=== PATIENT | male | born 1955 | race Caucasian/White ===

== ENCOUNTER → 2020-02-13 08:10 | Outpatient (REF) | payer MEDICARE, SELFPAY ==
--- NOTE | 2020-02-13 08:14 | CA_ITS ---
Transthoracic Echocardiogram Patient (Last, First, Middle): David Henley, Gender: Male Date of : 1955 Age: 65 Procedure Date: 02/13/2020 Procedure Type: Transthoracic Echocardiogram Location: OP Height: 180.34 cm Weight: 66.22 kg BSA: 1.84 m2 Heart Rate: bpm BP: 140 / 83 mmHg [employer] Consultant: PHILLIP Referring MD: Lani Sutton MD Symptoms: essential hypertension, family history of CAD Study Quality: Good ECG Rhythm: Sinus Conclusions: - The left ventricular systolic function is normal. The visually estimated ejection fraction is between 55-60%. - There is mild aortic valve regurgitation. - Top normal size of sinus of Valsalva at 3.9 cm. Findings Left Ventricle Normal left ventricular cavity size. There is normal left ventricular wall thickness. The left ventricular systolic function is normal. The visually estimated ejection fraction is between 55-60%. There is no evidence of regional wall motion abnormalities. Diastolic function is normal for age. Right Ventricle Normal right ventricular cavity size and systolic function. Atria Both atria are normal in size. Aortic Valve There is a normal trileaflet aortic valve. There is no aortic valve stenosis. There is mild aortic valve regurgitation. Mitral Valve The mitral valve appears normal. There is trace mitral valve regurgitation. There is no mitral valve stenosis. Pulmonic Valve The pulmonic valve was not well visualized. Tricuspid Valve Normal tricuspid valve structure. There is mild tricuspid valve regurgitation. The pulmonary artery systolic pressure is normal. Great Vessels Top normal size of sinus of Valsalva at 3.9 cm. Ascending aorta measures 3.5cm. Venous The inferior vena cava is normal in size and collapses greater than 50% with inspiration. Pericardium/Pleural There is no evidence of pericardial effusion. Prior Study Comparison No prior study available for comparison. Measurements 2D Linear Measurements IVSd: 1.16 0.6-0.9/0.6-1.0 cm LVIDd: 4.58 3.9-5.3/4.2-5.9 cm LVIDs: 3.02 2.0-3.6 cm LVPWd: 1.01 0.7-1.1 cm Ao Root: 3.94 2.1-3.5 cm LV Mass: 219.39 67-162/88-224 g LVOT Diam: 2.31 3.0+(-)1.3 cm Mitral Valve MV Pk E: 0.46 MV PK A: 0.48 MV Decel Time: 219.02 E/A: 0.96 E'Lateral: 0.10 E'Medial: 0.08 E/E' Med: 5.18 Decel [place]: 2.09 Aortic Valve AoV Pk Jose Roberto: 1.49 AoV Pk Grad: 8.84 AI Pk Jose Roberto: 3.87 AI [place]: 1.43 LVOT LVOT Pk Jose Roberto: 0.92 LVOT Mn Jose Roberto: 0.56 LVOT VTI: 0.21 LVOT Pk Grad: 3.36 LVOT Mn Grad: 1.51 LVOT Diam: 2.31 LVOT Area: 4.18 Diastolic Function MV Pk E: 0.46 MV Pk A: 0.48 E/A: 0.96 E'Medial: 0.08 E/E' Med: 5.18 E' Laterial: 0.10 Tricuspid Valve TR Pk Jose Roberto: 2.61 TR Pk Grad: 27.20 RA Press: 3.00 RVSP: 30.00 Great Vessels Aorta Ao Root-2D: 3.94 2.0-3.7 cm Ao Asc: 3.49 2.1-3.4 cm Updated in Other Vendor System with Status of Final Michael Lincoln MD electronically signed on 02/14/2020 9:57:21 AM with status of Final
--- NOTE | 2020-02-13 08:15 | CA_ITS ---
Acquisition Time: 2020-02-13 09:17:45 Total Exercise Time: 00:07:39 Test Indications: Screening for CAD Medications: AMLODIPINE LISINOPRIL OMEPRAZOLE PRAVASTATIN Protocol: JOSIAH Max HR: 151 BPM 98% of Pred: 153 BPM Max BP: 196/074 mmHG Max Work Load: 9.5 METS Exercise stress test using Josiah protocol. Total of 7 min 39 sec, METs 9.6. Pt tolerated well, denies any anginal sx. EKG with occ. PVC's and a couplet at 4 min 16 ses into exercise. Mild upsloping ST depressions inferiorly and anteriorly suggestive of ischemic changes, however without the sx and they normalize in recovery. Hypertensive response to exercise. Test reviewed with Dr. Lepe. will call PCP to recommend stress nuclear. Referred By: Lani Sutton Overread By: Salas Damon
== END ==
LOC: HO.CARD 08:10
PROVIDERS: PCP Internal Medicine; Visit Provider Internal Medicine
DX: I10 Essential (primary) hypertension (principal); Z82.49 Family history of ischemic heart disease and other diseases of the circulatory system
CPT/HCPCS: 93017; 93306

== ENCOUNTER → 2020-02-24 07:49 | Outpatient (REF) | payer MEDICARE, SELFPAY ==
--- NOTE | 2020-02-24 | NM_ITS ---
EXERCISE MYOCARDIAL PERFUSION STUDY INDICATION: Abnormal stress test, hypertension, hyperlipidemia, assess for coronary disease and ischemia TECHNIQUE: The patient was brought in for an exercise perfusion study on 02/24/2020. Patient performed exercise as per Piero protocol and was injected 25 mCi of sestamibi once target heart rate was achieved. Images were obtained using the SPECT gamma camera interlaced with the gating device. Images were obtained in supine position. Resting perfusion study was performed on 02/25/2020. Patient was administered 25 mCi of sestamibi intravenously at rest. Images were then obtained in supine position. Total DLP 80mGy-cm. Images were processed with the software and compared side to side in short axis, horizontal long axis and vertical long axis views. FINDINGS: Raw images were reviewed. The stress perfusion study showed mildly diminished tracer uptake in the basal inferior wall. With CT attenuation correction this improves, suggestive of diaphragmatic attenuation artifact. The gated study shows low normal LV systolic function with calculated LVEF of 52%. LV cavity is normal in size. The gated study shows normal wall thickening and contraction of segments. Resting study shows no significant perfusion abnormality. Gating at rest reveals normal wall motion with ejection fraction at 48%. The findings are consistent with no reversible or fixed perfusion defects. NM/NM jun perf SPECT rest & str IMPRESSION: 1. Myocardial perfusion imaging study shows likely normal myocardial perfusion. No evidence of any ischemia or infarction. 2. Gated LVEF is 52% during stress and 48% during rest, but visually in the normal range. 3. Transient ischemic dilatation not present. EKG component of the test reported separately.
--- NOTE | 2020-02-24 07:54 | CA_ITS ---
Acquisition Time: 2020-02-24 09:34:11 Total Exercise Time: 00:07:11 Test Indications: Abnormal Treadmill Test Medications: AMLODIPINE LISINOPRIL OMEPRAZOLE PRAVASTATIN Protocol: JOSIAH Max HR: 153 BPM 100% of Pred: 153 BPM Max BP: 166/076 mmHG Max Work Load: 8.8 METS Exercise nuclear using Josiah protocol, total of 7 min 11 sec, METS 8.8. Pt tolerated well, denies any anginal sx. EKG without arrhythmias Mild ST depressions seen in aVF, V3, V4. Nuclear images to follow. Normotensive response to exercise. Test reviewed with Dr. Lincoln. Pt had previously abnormal exercise stress test with mild upsloping ST depressions without anginal sx. Strong family history of cardiac disease (Father had CAD with AR in his 50's with tripple bypass then 10 years later had another AR with CABG x 4) Referred By: Lani Sutton Overread By: Salas Damon
== END ==
LOC: HO.CARD 07:49
PROVIDERS: PCP Internal Medicine; Visit Provider Internal Medicine
DX: R94.39 Abnormal result of other cardiovascular function study (principal)
CPT/HCPCS: 78452; 93017; A9500

== ENCOUNTER → 2020-03-24 10:30 | Outpatient (BNVA) | payer MEDICARE, SELFPAY | PROVIDERS: PCP Internal Medicine; Visit Provider Internal Medicine Cardiovascular Disease | DX: R94.39 Abnormal result of other cardiovascular function study (principal); R10.13 Epigastric pain; I10 Essential (primary) hypertension; E78.9 Disorder of lipoprotein metabolism, unspecified | CPT/HCPCS: 93005; 99202 ==

== ENCOUNTER 2020-05-14 08:31 | Outpatient (REF) | payer MEDICARE, SELFPAY ==
[2020-05-14 11:21] LABS: MANUAL DIFF FLAG NO
[2020-05-14 11:50] LABS: Basophils Absolute Auto 0.1 X10*3/uL (0.0-0.2); Basophils Percent Auto 1.1 % (0-2); Eosinophils Absolute Auto 0.4 X10*3/uL (0.0-0.4); Eosinophils Percent Auto 4.7 % (0-4); Hematocrit 40.5 % (42-52); Hemoglobin 13.2 g/dl (14.0-18.0); Imm Gran Abs Auto 0.04 X10*3/uL (0.00-0.03); Imm Gran Pct Auto 0.5 % (0.0-0.4); Lymphocytes Absolute Auto 1.7 X10*3/uL (1.2-4.9); Lymphocytes Percent Auto 19.8 % (20-40); Mean Corpuscular HGB Conc 32.6 g/dl (31.0-36.0); Mean Corpuscular Hemoglobin 29.3 pg (27.0-33.0); Mean Corpuscular Volume 89.8 fL (80-98); Mean Platelet Volume 11.4 fL (9.4-12.4); Monocytes Absolute Auto 0.6 X10*3/uL (0.1-1.2); Monocytes Percent Auto 7.1 % (2-11); Neutrophils Absolute Auto 5.7 X10*3/uL (2.0-8.3); Neutrophils Percent Auto 66.8 % (45-73); Platelet Count 237 X10*3/uL (160-400); Red Blood Count 4.51 X10*6/uL (4.60-5.80); Red Cell Distribution Width 13.6 % (11.0-16.0); White Blood Count 8.5 X10*3/uL (4.8-10.8)
[2020-05-14 12:12] LABS: Alanine Aminotransferase 19 U/L (0-40); Albumin Level 4.5 g/dL (3.5-5.0); Alkaline Phosphatase 62 U/L (39-117); Anion Gap 16 (12-20); Aspartate Amino Transferase 18 U/L (5-37); Bilirubin Direct 0.4 mg/dL (0.0-0.5); Bilirubin Total 1.1 mg/dL (0.0-1.0); Blood Urea Nitrogen 14 mg/dL (9-16); Calcium 9.3 mg/dL (8.4-10.2); Carbon Dioxide 23 mmol/L (22-29); Chloride 107 mmol/L (96-108); Estimated Glomerular Filt Rate > 60; Glucose Random 101 mg/dL (60-115); Potassium 3.8 mmol/l (3.3-5.1); Sodium 142 mmol/L (135-145)
[2020-05-15 11:03] LABS: LDL Cholesterol Direct 84 mg/dL (<100)
== END 2020-05-14 08:32 | disposition home or self-care (01) ==
LOC: HO.HMGCLDS 08:31
PROVIDERS: PCP Internal Medicine; Visit Provider Internal Medicine
DX: E78.9 Disorder of lipoprotein metabolism, unspecified (principal); I10 Essential (primary) hypertension; R10.13 Epigastric pain
CPT/HCPCS: 36415; 80048; 80076; 83721; 85025

== ENCOUNTER 2020-05-28 15:04 | Outpatient (REF) | payer MEDICARE, SELFPAY ==
--- NOTE | ~2020-05-28 | XR_ITS ---
EXAMINATION: XR CHEST CLINICAL INFORMATION: Localized swelling, mass or lump COMPARISON: None TECHNIQUE: 2 views of the chest were obtained. FINDINGS: The cardiac and mediastinal contours are normal. There is biapical pleural thickening. The lungs are otherwise clear. There is no pleural effusion or pneumothorax. There are degenerative changes of the spine. XR/XR chest 2V IMPRESSION: No evidence for acute disease in the chest.
== END 2020-05-28 15:05 | disposition home or self-care (01) ==
LOC: HO.HMGCX 15:04
PROVIDERS: PCP Internal Medicine; Visit Provider Nurse Practitioner Family
DX: R22.2 Localized swelling, mass and lump, trunk (principal)
CPT/HCPCS: 71046

== ENCOUNTER 2020-06-08 13:49 | Outpatient (REF) | payer MEDICARE, SELFPAY ==
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
[2020-06-08] MEDS: iohexoL 350 MG/ML 100 ML INFUS..BTL IV (15:07)
== END 2020-06-08 13:50 | disposition home or self-care (01) ==
LOC: HO.CT 13:49
PROVIDERS: PCP Internal Medicine; Visit Provider Internal Medicine
DX: R22.2 Localized swelling, mass and lump, trunk (principal)
CPT/HCPCS: 71260; Q9967

== ENCOUNTER → 2020-06-23 09:29 | Outpatient (BNVA) | payer MEDICARE, SELFPAY | PROVIDERS: PCP Internal Medicine; Visit Provider Internal Medicine Pulmonary Disease | DX: J43.8 Other emphysema (principal); Z87.891 Personal history of nicotine dependence | CPT/HCPCS: 99202 ==

== ENCOUNTER → 2020-07-09 08:48 | Outpatient (BNVA) | payer MEDICARE, SELFPAY | PROVIDERS: PCP Internal Medicine; Visit Provider Surgery | DX: R22.2 Localized swelling, mass and lump, trunk (principal); Z79.899 Other long term (current) drug therapy; Z87.891 Personal history of nicotine dependence | CPT/HCPCS: 99212 ==

== ENCOUNTER 2020-07-13 10:18 | Outpatient (REF) | payer MEDICARE, SELFPAY ==
[2020-07-13 12:31] LABS: Blood Urea Nitrogen 20 mg/dL (9-16); Calcium 9.6 mg/dL (8.4-10.2); Estimated Glomerular Filt Rate 56; Glucose Random 99 mg/dL (60-115)
[2020-07-13 12:59] LABS: Anion Gap 16 (12-20); Carbon Dioxide 24 mmol/L (22-29); Chloride 104 mmol/L (96-108); Sodium 138 mmol/L (135-145)
== END 2020-07-13 10:19 | disposition home or self-care (01) ==
LOC: HO.HMGCLDS 10:18
PROVIDERS: PCP Internal Medicine; Visit Provider Internal Medicine Cardiovascular Disease
DX: R94.39 Abnormal result of other cardiovascular function study (principal)
CPT/HCPCS: 36415; 80048

== ENCOUNTER 2020-07-14 16:51 | Emergency (ER) | payer MEDICARE, SELFPAY ==
[2020-07-14 18:38] LABS: MANUAL DIFF FLAG NO
[2020-07-14 18:42] LABS: Basophils Absolute Auto 0.1 X10*3/uL (0.0-0.2); Basophils Percent Auto 0.6 % (0-2); Eosinophils Absolute Auto 0.2 X10*3/uL (0.0-0.4); Hematocrit 36.3 % (42-52); Hemoglobin 11.8 g/dl (14.0-18.0); Imm Gran Abs Auto 0.02 X10*3/uL (0.00-0.03); Imm Gran Pct Auto 0.3 % (0.0-0.4); Lymphocytes Absolute Auto 1.9 X10*3/uL (1.2-4.9); Lymphocytes Percent Auto 23.6 % (20-40); Mean Corpuscular HGB Conc 32.5 g/dl (31.0-36.0); Mean Corpuscular Hemoglobin 29.5 pg (27.0-33.0); Mean Corpuscular Volume 90.8 fL (80-98); Mean Platelet Volume 10.9 fL (9.4-12.4); Monocytes Absolute Auto 0.7 X10*3/uL (0.1-1.2); Monocytes Percent Auto 8.2 % (2-11); Neutrophils Absolute Auto 5.1 X10*3/uL (2.0-8.3); Neutrophils Percent Auto 64.3 % (45-73); Platelet Count 220 X10*3/uL (160-400); Red Cell Distribution Width 13.1 % (11.0-16.0)
[2020-07-14 18:55] LABS: Prothrombin Time 12.2 SEC (10.8-13.0)
[2020-07-14 19:06] LABS: Alanine Aminotransferase 17 U/L (0-40); Albumin Level 4.4 g/dL (3.5-5.0); Alkaline Phosphatase 66 U/L (39-117); Anion Gap 17 (12-20); Aspartate Amino Transferase 18 U/L (5-37); Bilirubin Direct 0.3 mg/dL (0.0-0.5); Bilirubin Total 0.8 mg/dL (0.0-1.0); Blood Urea Nitrogen 21 mg/dL (9-16); Calcium 9.5 mg/dL (8.4-10.2); Carbon Dioxide 24 mmol/L (22-29); Chloride 102 mmol/L (96-108); Estimated Glomerular Filt Rate 55; Glucose Random 100 mg/dL (60-115); Potassium 5.6 mmol/L (3.3-5.1); Sodium 137 mmol/L (135-145); Total Protein 7.9 g/dL (6.5-8.0)
[2020-07-14 19:23] VITALS: BP 142/78; PULSE 67; RESP 18; TEMP 36.6; O2SAT 97; BMI 22.3
--- NOTE | 2020-07-14 19:28 | ED_ITS ---
HPI - General Adult General Chief complaint: Recheck/Abnormal Lab/Rx Stated complaint: Abnormal labs Time Seen by Provider: 07/14/20 17:10 Source: patient Mode of arrival: ambulatory Limitations: no limitations History of Present Illness HPI narrative: found to have an elevated potassium on his labs, patient is heather cheney Lisinopril Onset (ago): unknown Severity: mild Relieving factors: none Exacerbating factors: none Related Data Home Medications Medication Instructions Recorded Confirmed aspirin 81 mg tablet,delayed 81 mg PO DAILY 05/14/20 07/09/20 release Previous Rx's Medication Instructions Recorded amlodipine 5 mg tablet 5 mg PO DAILY 90 Days #90 tab 05/07/20 lisinopril 40 mg tablet 40 mg PO DAILY #90 tab 07/04/20 omeprazole 20 mg capsule,delayed 20 mg PO QAM #90 cap 07/04/20 release pravastatin 40 mg tablet 40 mg PO DAILY #90 tab 07/05/20 Allergies Allergy/AdvReac Type Severity Reaction Status Date / Time Penicillins AdvReac Severe Diarrhea Verified 07/14/20 19:32 Review of Systems Constitutional: Constitutional: Reports no additional constitutional complaints Eyes: Eyes: Reports no additional eye complaints ENT: Denies dizziness Cardiovascular: Cardiovascular: Reports no additional cardiovascular complaints Respiratory: Respiratory: Reports as per HPI Gastrointestinal: Gastrointestinal: Reports no additional gastrointestinal complaints Musculoskeletal: Musculoskeletal: Reports no additional musculoskeletal complaints Integumentary/Breasts: Skin/Breast: Denies rash Neurologic: Reports system reviewed and no additional complaints, except as do cumented, Denies dizziness and Denies Sensory deficit (Neuro) Psychiatric: Psychiatric: Denies anxiety PMFSH Past Medical History Medical History Abnormal stress test Dyspepsia Hypertension, essential Lipid disorder Surgical History No pertinent past surgical history Family History Family History Father CVD (cardiovascular disease) Mother Anxiety Social History Social History Alcohol intake: current Smoking Status: Former smoker Advance Directives: No Advance Directives Information Provided: Yes Physical Exam Vital Signs: Vital Signs: Last Vital Signs Temp 97.9 F 07/14/20 19:23 Pulse 67 07/14/20 19:23 Resp 18 07/14/20 19:23 BP 142/78 H 07/14/20 19:23 Pulse Ox 97 07/14/20 19:23 Body Mass Index 22.3 Const: General: healthy appearing Nutritional Appearance: average body habitus Orientation/consciousness: oriented to person and patient oriented x3 Limitations: no limitations HENMT: Head: Yes normal to inspection Ears: external ears normal General nose exam: Normal external nose present Mouth: Normal oral and palatal mucosa present and oropharynx normal Throat: Yes posterior oropharynx normal Eyes: General: appearance normal, both eyes and all related structures Neck: Other: supple Neck: Yes normal visual inspection Chest: Chest palpation & inspection: normal inspection of the chest Resp: Auscultation: clear to auscultation bilaterally Cardio: Jugular venous distension: no JVD Rate: regular rate Rhythm: regular rhythm Heart sounds: S1 normal heart sound present and S2 normal heart sound present GI: Inspection: Yes normal to inspection Palpation (GI): Soft to palpation, nontender and No hepatosplenomegaly present Auscultation: normal bowel sounds : General: Yes no CVA tenderness Back/Spine/Pelvis: Back: no CVA tenderness Skin: General skin exam: no rashes or lesions noted Neuro: General: oriented to person and patient oriented x3 Cranial nerves: Yes CN's II-XII intact bilaterally Motor exam (neuro): 5/5 motor strength present throughout Sensory Exam: No Sensory deficit (Neuro) Extrem: General: Yes normal to inspection Psych: Appearance: grossly normal Medical Decision Making Lab Data Result diagrams: 07/14/20 18:33 07/14/20 18:33 Labs: Lab Results 07/14/20 07/14/20 07/14/20 Range/Units 18:33 18:33 18:33 WBC 8.0 (4.8-10.8) X10*3/uL RBC 4.00 L (4.60-5.80) X10*6/uL Hgb 11.8 L (14.0-18.0) g/dl Hct 36.3 L (42-52) % MCV 90.8 (80-98) fL MCH 29.5 (27.0-33.0) pg MCHC 32.5 (31.0-36.0) g/dl RDW 13.1 (11.0-16.0) % Plt Count 220 (160-400) X10*3/uL MPV 10.9 (9.4-12.4) fL Immature Gran % (Auto) 0.3 (0.0-0.4) % Neut % (Auto) 64.3 (45-73) % Lymph % (Auto) 23.6 (20-40) % Dawson % (Auto) 8.2 (2-11) % Eos % (Auto) 3.0 (0-4) % Baso % (Auto) 0.6 (0-2) % Lymph # (Auto) 1.9 (1.2-4.9) X10*3/uL Dawson # (Auto) 0.7 (0.1-1.2) X10*3/uL Eos # (Auto) 0.2 (0.0-0.4) X10*3/uL Baso # (Auto) 0.1 (0.0-0.2) X10*3/uL Abs Immat Gran (auto) 0.02 (0.00-0.03) X10*3/uL Absolute Neuts (auto) 5.1 (2.0-8.3) X10*3/uL Absolute Nucleated RBC 0.000 (0.0-0.012) X10*3/uL Nucleated RBC % (auto) 0.0 (0.0-0.2) /100WBC PT 12.2 (10.8-13.0) SEC INR 1.0 (0.9-1.1) Sodium 137 (135-145) mmol/L Potassium 5.6 H (3.3-5.1) mmol/L Chloride 102 (96-108) mmol/L Carbon Dioxide 24 (22-29) mmol/L Anion Gap 17 (12-20) BUN 21 H (9-16) mg/dL Creatinine 1.30 (0.5-1.4) mg/dL Estim Creat Clear Calc TNP Estimated GFR 55 Random Glucose 100 (60-115) mg/dL Calcium 9.5 (8.4-10.2) mg/dL Magnesium 2.0 (1.6-2.6) mg/dL Total Bilirubin 0.8 (0.0-1.0) mg/dL Direct Bilirubin 0.3 (0.0-0.5) mg/dL AST 18 (5-37) U/L ALT 17 (0-40) U/L Alkaline Phosphatase 66 (39-117) U/L Total Protein 7.9 (6.5-8.0) g/dL Albumin 4.4 (3.5-5.0) g/dL ECG Data Attestation: I personally reviewed and interpreted this ECG as follows: Interpretation: normal sinus rate of 70, no st or twave changes, no evidence of hyperkalemia Discharge Plan Discharge Clinical Impression: Acute hyperkalemia Patient Disposition: Home, Self-Care Instructions: Hyperkalemia (ED) Additional Instructions: must stop lisinopril Prescriptions: No Action amlodipine 5 mg tablet 5 mg PO DAILY 90 Days Qty: 90 RF: 0 lisinopril 40 mg tablet 40 mg PO DAILY Qty: 90 RF: 3 omeprazole 20 mg capsule,delayed release(DR/EC) 20 mg PO QAM Qty: 90 RF: 3 pravastatin 40 mg tablet 40 mg PO DAILY Qty: 90 RF: 0 aspirin [Adult Low Dose Aspirin] 81 mg tablet,delayed release (DR/EC) 81 mg PO DAILY RF: 0 Referrals: Lani Sutton MD [Primary Care Provider] - 2 days
--- NOTE | 2020-07-14 19:31 | ECG_ITS ---
Test Reason : RECHECK Blood Pressure : / mmHG Vent. Rate : 069 BPM Atrial Rate : 069 BPM P-R Int : 146 ms QRS Dur : 096 ms QT Int : 392 ms P-R-T Axes : 025 000 036 degrees QTc Int : 420 ms Normal sinus rhythm Normal ECG No previous ECGs available Referred By: Cr Isaac Electronically Signed By:ALIVIA CAMARILLO
[2020-07-14 20:10] LABS: Glucose Urine UA NEG (NEG); Leukocyte Esterase Urine NEG (NEG); Nitrite Urine NEG (NEG); PH 7.5 (5.0-8.0); Urine Blood NEG (NEG); Urine Ketones NEG (NEG); Urine Protein NEG (NEG-TRACE)
[2020-07-14 20:12] LABS: Appearance Urine CLEAR; Color Urine YELLOW
== END 2020-07-14 20:37 | disposition home or self-care (01) ==
PROVIDERS: Physician Assistant Medical; Emergency Provider Emergency Medicine; PCP Internal Medicine
DX: E87.5 Hyperkalemia (principal); I10 Essential (primary) hypertension; E78.5 Hyperlipidemia, unspecified; Z79.82 Long term (current) use of aspirin; Z79.899 Other long term (current) drug therapy
CPT/HCPCS: 36415; 80048; 80076; 81003; 83735; 85025; 85610; 93005; 99283

== ENCOUNTER 2020-07-17 09:21 | Outpatient (REF) | payer MEDICARE, SELFPAY ==
[2020-07-17 10:57] LABS: Anion Gap 15 (12-20); Blood Urea Nitrogen 17 mg/dL (9-16); Calcium 9.7 mg/dL (8.4-10.2); Carbon Dioxide 24 mmol/L (22-29); Chloride 103 mmol/L (96-108); Estimated Glomerular Filt Rate > 60; Glucose Random 102 mg/dL (60-115); Potassium 5.6 mmol/L (3.3-5.1); Sodium 136 mmol/L (135-145)
== END 2020-07-17 09:22 | disposition home or self-care (01) ==
LOC: HO.LAB 09:21
PROVIDERS: PCP Internal Medicine; Visit Provider Internal Medicine Cardiovascular Disease
DX: R94.39 Abnormal result of other cardiovascular function study (principal)
CPT/HCPCS: 36415; 80048

== ENCOUNTER 2020-07-26 08:42 | Outpatient (REF) | payer MEDICARE, SELFPAY ==
[2020-07-26 12:24] LABS: Anion Gap 18 (12-20); Carbon Dioxide 20 mmol/L (22-29); Chloride 108 mmol/L (96-108); Potassium 4.2 mmol/L (3.3-5.1); Sodium 142 mmol/L (135-145)
== END 2020-07-26 08:43 | disposition home or self-care (01) ==
LOC: HO.HMGCLDS 08:42
PROVIDERS: PCP Internal Medicine; Visit Provider Internal Medicine
DX: E87.5 Hyperkalemia (principal)
CPT/HCPCS: 36415; 80051

== ENCOUNTER → 2020-07-29 09:28 | Outpatient (BNVA) | payer MEDICARE, SELFPAY | PROVIDERS: PCP Internal Medicine; Visit Provider Internal Medicine Cardiovascular Disease | DX: I25.10 Atherosclerotic heart disease of native coronary artery without angina pectoris (principal); I10 Essential (primary) hypertension | CPT/HCPCS: 99212 ==

== ENCOUNTER → 2020-08-19 09:39 | Outpatient (BNVA) | payer MEDICARE, SELFPAY | PROVIDERS: PCP Internal Medicine; Visit Provider Internal Medicine Cardiovascular Disease | DX: Z01.810 Encounter for preprocedural cardiovascular examination (principal); I10 Essential (primary) hypertension; I25.10 Atherosclerotic heart disease of native coronary artery without angina pectoris | CPT/HCPCS: 99212 ==

== ENCOUNTER 2020-09-29 13:16 | Outpatient (REF) | payer MEDICARE, SELFPAY ==
[2020-09-29 16:42] LABS: Anion Gap 12 (12-20); Carbon Dioxide 23 mmol/L (22-29); Chloride 108 mmol/L (96-108); Potassium 4.3 mmol/L (3.3-5.1); Sodium 139 mmol/L (135-145)
== END 2020-09-29 13:17 | disposition home or self-care (01) ==
LOC: HO.HMGCLDS 13:16
PROVIDERS: PCP Internal Medicine; Visit Provider Internal Medicine
DX: E87.5 Hyperkalemia (principal)
CPT/HCPCS: 36415; 80051

== ENCOUNTER 2020-10-20 16:20 | Outpatient (REF) | payer MEDICARE, SELFPAY ==
--- NOTE | ~2020-10-20 | XR_ITS ---
EXAMINATION: XR KNEE, LEFT CLINICAL INFORMATION: Pain left knee. COMPARISON: None TECHNIQUE: Four views of the left knee. FINDINGS: There is mild loss of medial and patellofemoral compartment joint space. There are no loose bodies, joint effusion or bony erosive changes. The soft tissues are normal. XR/XR knee LT 4V IMPRESSION: Mild degenerative changes medial and patellofemoral compartment.
== END 2020-10-20 16:21 | disposition home or self-care (01) ==
LOC: HO.HMGCX 16:20
PROVIDERS: PCP Internal Medicine; Visit Provider Internal Medicine
DX: M25.562 Pain in left knee (principal)
CPT/HCPCS: 73564

== ENCOUNTER 2020-11-11 11:38 | Outpatient (REF) | payer MEDICARE, SELFPAY | END 2020-11-11 11:39 | disposition home or self-care (01) | LOC: HO.LNP 11:38 | PROVIDERS: Visit Provider Hospitalist | DX: Z20.822 Contact with and (suspected) exposure to COVID-19 (principal); J40 Bronchitis, not specified as acute or chronic | CPT/HCPCS: U0003; U0005 ==

== ENCOUNTER → 2020-11-16 09:55 | Outpatient (BNVA) | payer MEDICARE, SELFPAY | PROVIDERS: Visit Provider Orthopaedic Surgery | DX: M17.12 Unilateral primary osteoarthritis, left knee (principal) | CPT/HCPCS: 99202 ==

== ENCOUNTER 2020-12-24 08:54 | Outpatient (REF) | payer MEDICARE, SELFPAY ==
[2020-12-24 11:19] LABS: MANUAL DIFF FLAG NO
[2020-12-24 11:24] LABS: Basophils Absolute Auto 0.1 X10*3/uL (0.0-0.2); Basophils Percent Auto 1.1 % (0-2); Eosinophils Absolute Auto 0.2 X10*3/uL (0.0-0.4); Eosinophils Percent Auto 3.8 % (0-4); Hemoglobin 11.9 g/dl (14.0-18.0); Imm Gran Abs Auto 0.02 X10*3/uL (0.00-0.03); Imm Gran Pct Auto 0.3 % (0.0-0.4); Lymphocytes Absolute Auto 1.5 X10*3/uL (1.2-4.9); Lymphocytes Percent Auto 23.2 % (20-40); Mean Corpuscular HGB Conc 33.1 g/dl (31.0-36.0); Mean Corpuscular Hemoglobin 29.2 pg (27.0-33.0); Mean Corpuscular Volume 88.2 fL (80-98); Mean Platelet Volume 12.8 fL (9.4-12.4); Monocytes Absolute Auto 0.5 X10*3/uL (0.1-1.2); Monocytes Percent Auto 8.4 % (2-11); Neutrophils Percent Auto 63.2 % (45-73); Platelet Count 118 X10*3/uL (160-400); Red Blood Count 4.08 X10*6/uL (4.60-5.80); Red Cell Distribution Width 13.4 % (11.0-16.0); White Blood Count 6.3 X10*3/uL (4.8-10.8)
[2020-12-24 11:49] LABS: Alanine Aminotransferase 16 U/L (0-40); Alkaline Phosphatase 57 U/L (39-117); Anion Gap 11 (12-20); Aspartate Amino Transferase 19 U/L (5-37); Bilirubin Total 0.9 mg/dL (0.0-1.0); Blood Urea Nitrogen 10 mg/dL (9-16); Calcium 9.4 mg/dL (8.4-10.2); Carbon Dioxide 26 mmol/L (22-29); Chloride 109 mmol/L (96-108); Cholesterol 150 mg/dL; Estimated Glomerular Filt Rate > 60; Glucose Fasting 90 mg/dL (60-99); HDL Cholesterol 39 mg/dL; LDL Cholesterol Calculated 80 mg/dl; Potassium 4.7 mmol/L (3.3-5.1); Sodium 141 mmol/L (135-145); Total Protein 6.9 g/dL (6.5-8.0); Triglycerides 156 mg/dL
[2020-12-24 11:52] LABS: Potassium 4.7 mmol/L (3.3-5.1)
== END 2020-12-24 08:55 | disposition home or self-care (01) ==
LOC: HO.HMGCLDS 08:54
PROVIDERS: Internal Medicine Cardiovascular Disease; PCP Internal Medicine; Visit Provider Internal Medicine
DX: E78.9 Disorder of lipoprotein metabolism, unspecified (principal); D69.6 Thrombocytopenia, unspecified; R10.13 Epigastric pain; I10 Essential (primary) hypertension; E78.5 Hyperlipidemia, unspecified
CPT/HCPCS: 36415; 80053; 80061; 85025

== ENCOUNTER → 2021-01-25 09:02 | Outpatient (BNV) | payer MEDICARE, SELFPAY | PROVIDERS: PCP Internal Medicine; Referring Provider Internal Medicine; Visit Provider Internal Medicine Medical Oncology | DX: D64.9 Anemia, unspecified (principal) | CPT/HCPCS: 99203; 99213 ==

== ENCOUNTER → 2021-01-27 13:01 | Outpatient (BNVA) | payer MEDICARE, SELFPAY | PROVIDERS: PCP Internal Medicine; Referring Provider Internal Medicine; Visit Provider Internal Medicine Cardiovascular Disease | DX: I10 Essential (primary) hypertension (principal); I25.10 Atherosclerotic heart disease of native coronary artery without angina pectoris | CPT/HCPCS: 99212 ==

== ENCOUNTER → 2021-03-07 14:05 | Outpatient (BNVA) | payer MEDICARE, SELFPAY | PROVIDERS: PCP Internal Medicine; Referring Provider Internal Medicine; Visit Provider Internal Medicine Cardiovascular Disease | DX: I10 Essential (primary) hypertension (principal) | CPT/HCPCS: 99212 ==

== ENCOUNTER → 2021-05-23 14:05 | Outpatient (BNVA) | payer MEDICARE, SELFPAY | PROVIDERS: PCP Internal Medicine; Referring Provider Internal Medicine; Visit Provider Internal Medicine Cardiovascular Disease | DX: I10 Essential (primary) hypertension (principal) | CPT/HCPCS: 93005; 99212 ==

== ENCOUNTER 2021-07-26 07:57 | Outpatient (REF) | payer MEDICARE, SELFPAY ==
--- NOTE | ~2021-07-26 | MR_ITS ---
MR LUMBAR SPINE WITHOUT CONTRAST CLINICAL INFORMATION: Radiculopathy. COMPARISON: None available. TECHNIQUE: MRI of the lumbar spine was obtained using routine sequences without contrast. FINDINGS: Grade 1 degenerative anterolisthesis of L4 on L5. Lumbar alignment is otherwise maintained. Vertebral body heights are preserved. There is disc desiccation at all lumbar levels the exception of L1-L2. Disc volumes are overall preserved. There is no bone marrow edema. There are no acute fractures. Conus terminates at the L1 level. Bilateral renal cysts. No significant extraspinal soft tissue findings. L1-L2: Disc contour is normal. No central canal stenosis and no foraminal stenosis. L2-L3: A shallow left paracentral disc protrusion results in mass effect on the traversing left L3 nerve root within the left subarticular zone. An inferiorly migrating right paracentral disc extrusion results in mass effect on the traversing right L3 nerve root within the right subarticular zone. A far right lateral disc protrusion results in mass effect on the extraforaminal right L2 nerve root. L3-L4: There is a diffuse annular disc bulge with a superimposed left paracentral disc protrusion that compresses the traversing left L4 nerve root within the left subarticular zone and a far right lateral disc protrusion that results in mass effect on the extraforaminal right L3 nerve root. There is mild foraminal encroachment bilaterally. L4-L5: There is grade 1 degenerative anterolisthesis. Severe bilateral facet arthropathy and ligamentum flavum thickening. Diffuse annular disc bulge the superimposed broad-based central disc protrusion. Findings in concert result in severe central canal stenosis and moderate bilateral foraminal stenosis with mild mass effect on the exiting L4 nerve roots bilaterally. L5-S1: Shallow central disc protrusion mildly indents the ventral thecal sac. Background disc osteophyte. The lateral facet arthropathy. Mild bilateral foraminal encroachment. MR/MR lumbar spine wo con IMPRESSION: - At L2-L3, a shallow left paracentral disc protrusion results in mass effect on the traversing left L3 nerve root within the left subarticular zone, an inferiorly migrating right paracentral disc extrusion results in mass effect on the traversing right L3 nerve root within the right subarticular zone, and a far right lateral disc protrusion results in mass effect on the extraforaminal right L2 nerve root. - At L3-L4, a left paracentral disc protrusion compresses the traversing left L4 nerve root within the left subarticular zone and a far right lateral disc protrusion that results in mass effect on the extraforaminal right L3 nerve root. - At L4-L5, grade 1 degenerative anterolisthesis in the setting of severe bilateral facet arthropathy and a central disc protrusion result in severe central canal stenosis and moderate bilateral foraminal stenosis with mild mass effect on the exiting L4 nerve roots bilaterally. - Additional degenerative changes as discussed above.
== END 2021-07-26 07:58 | disposition home or self-care (01) ==
LOC: HO.MRI 07:57
PROVIDERS: Visit Provider Internal Medicine
DX: M54.16 Radiculopathy, lumbar region (principal)
CPT/HCPCS: 72148

== ENCOUNTER → 2021-08-03 13:22 | Outpatient (BNVA) | payer MEDICARE, SELFPAY | PROVIDERS: PCP Internal Medicine; Referring Provider Internal Medicine; Visit Provider Internal Medicine Cardiovascular Disease | DX: I10 Essential (primary) hypertension (principal); Z79.899 Other long term (current) drug therapy | CPT/HCPCS: 99212 ==

== ENCOUNTER 2021-08-11 10:20 | Outpatient (REF) | payer MEDICARE, SELFPAY ==
--- NOTE | ~2021-08-11 | US_ITS ---
EXAMINATION: US RETROPERITONEAL LIMITED (RENAL ONLY) CLINICAL INFORMATION: Unspecified renal colic. COMPARISON: None TECHNIQUE: Grayscale and color images of the bilateral kidneys were obtained FINDINGS: RIGHT KIDNEY: 11.1 x 4.8 x 5.8 cm (SAG x AP x TRV). The kidney is normal in size, contour, and echogenicity. Renal cortical thickness is normal. No calculi or focal parenchymal lesions. No hydronephrosis. Cystic focus in the right renal lower pole measuring up to 1.1 cm, simple appearing, which does not require follow-up. LEFT KIDNEY: 12.2 x 5.3 x 6.3 cm (SAG x AP x TRV). The kidney is normal in size, contour, and echogenicity. Renal cortical thickness is normal. No calculi or focal parenchymal lesions. No hydronephrosis. Cystic foci in the left kidney the largest in the upper pole measuring up to 7.2 cm, simple appearing, which do not require follow-up. US/US renal BI IMPRESSION: 1. No nephrolithiasis or hydronephrosis. 2. Bilateral renal cystic foci, simple appearing, the largest measuring up to 7.2 cm in the left renal upper pole, which do not require follow-up.
== END 2021-08-11 10:21 | disposition home or self-care (01) ==
LOC: HO.HMGCX 10:20
PROVIDERS: PCP Internal Medicine; Visit Provider Internal Medicine
DX: M54.9 Dorsalgia, unspecified (principal); N23 Unspecified renal colic; Z87.442 Personal history of urinary calculi
CPT/HCPCS: 76775

== ENCOUNTER 2021-10-05 08:00 | Outpatient (RCR) | payer MEDICARE, SELFPAY | END 2021-10-05 09:00 | disposition home or self-care (01) | LOC: HO.PTCHIC 08:00 | PROVIDERS: PCP Internal Medicine; Visit Provider Neurological Surgery | DX: M48.061 Spinal stenosis, lumbar region without neurogenic claudication (principal); M54.16 Radiculopathy, lumbar region | CPT/HCPCS: 97110; 97112; 97161 ==

== ENCOUNTER 2022-02-08 08:55 | Outpatient (REF) | payer MEDICARE, SELFPAY ==
--- NOTE | ~2022-02-08 | XR_ITS ---
EXAMINATION: XR HAND/WRIST, LEFT CLINICAL INFORMATION: Sprain COMPARISON: None TECHNIQUE: 3 views of the left hand with additional view of the wrist FINDINGS: No fracture or dislocation. Alignment is maintained. Joint spaces are maintained throughout the hand. There is narrowing at the first carpometacarpal joint with prominent osteophytes and sclerosis. The carpal rows are well aligned. The soft tissues are unremarkable. XR/XR hand wrist LT IMPRESSION: Advanced degenerative changes at the first carpometacarpal joint. No acute abnormality.
== END 2022-02-08 08:56 | disposition home or self-care (01) ==
LOC: HO.HMGCX 08:55
PROVIDERS: PCP Internal Medicine; Visit Provider Internal Medicine
DX: S63.502A Unspecified sprain of left wrist, initial encounter (principal)
CPT/HCPCS: 73110; 73130

== ENCOUNTER → 2022-02-13 12:24 | Outpatient (BNVA) | payer MEDICARE, SELFPAY | PROVIDERS: PCP Internal Medicine; Referring Provider Internal Medicine; Visit Provider Internal Medicine Cardiovascular Disease | DX: I10 Essential (primary) hypertension (principal) | CPT/HCPCS: 93005; 99212 ==

== ENCOUNTER 2022-05-24 10:50 | Outpatient (REF) | payer MEDICARE, SELFPAY ==
[2022-05-24 15:05] LABS: Prostate Specific Antigen 0.81 ng/mL (<0.05-4.0)
== END 2022-05-24 10:51 | disposition home or self-care (01) ==
LOC: HO.HMGCLDS 10:50
PROVIDERS: PCP Internal Medicine; Visit Provider Internal Medicine
DX: Z12.5 Encounter for screening for malignant neoplasm of prostate (principal)
CPT/HCPCS: 36415; 84153

== ENCOUNTER → 2022-08-17 13:16 | Outpatient (BNVA) | payer MEDICARE, SELFPAY | PROVIDERS: PCP Internal Medicine; Referring Provider Internal Medicine; Visit Provider Nurse Practitioner Family | DX: I25.10 Atherosclerotic heart disease of native coronary artery without angina pectoris (principal); I10 Essential (primary) hypertension; E78.9 Disorder of lipoprotein metabolism, unspecified; Z98.890 Other specified postprocedural states | CPT/HCPCS: 99212 ==

== ENCOUNTER 2022-09-07 10:21 | Outpatient (REF) | payer MEDICARE, SELFPAY ==
--- NOTE | ~2022-09-07 | US_ITS ---
EXAMINATION: Ultrasound appendix. CLINICAL INDICATION: On and off pain in right lower quadrant in the area of appendix x 2 weeks. Patient had some relief after bowel movement. TECHNIQUE: Limited ultrasound imaging to the right lower quadrant was performed. FINDINGS: The appendix is not visualized. No evidence of free fluid. No appendicolith. The area is compressible with no rebound pain or tenderness. No lymph nodes visualized. There are peristaltic bowel is noted. No free fluid. US/US appendix IMPRESSION: Appendix is not visualized. There is no free fluid.
== END 2022-09-07 10:22 | disposition home or self-care (01) ==
LOC: HO.HMGCX 10:21
PROVIDERS: PCP Internal Medicine; Visit Provider Internal Medicine
DX: R10.31 Right lower quadrant pain (principal)
CPT/HCPCS: 76705

== ENCOUNTER 2023-04-25 13:00 | Outpatient (REF) | payer MEDICARE, SELFPAY | END 2023-04-25 13:01 | disposition home or self-care (01) | LOC: HO.LAB 13:00 | PROVIDERS: PCP Internal Medicine; Visit Provider Internal Medicine | DX: Z13.89 Encounter for screening for other disorder (principal) ==

== ENCOUNTER 2023-05-02 11:00 | Outpatient (AMB) | payer MEDICARE, SELFPAY ==
[2023-05-02 11:06] VITALS: BP 150/68; PULSE 60; BMI 22.7
--- NOTE | 2023-05-02 11:06 | MHC.OFFVIS ---
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 He has h/o high blood pressure. Previously had facial flushing which was due to cyanocobalamin and after stopping it his facial flushing is improved. Doing well without any chest pain or shortness of breath. No new complaints. 05/02/23: He is here for follow-up today. Denying any symptoms. No chest discomfort shortness of breath. His blood pressure in the office is elevated. Manual check is 150/70. Taking medication regularly. He is saying he is taking little more salt than usual. [facility] Medical History Abnormal stress test Dyspepsia Hypertension, essential Lipid disorder Surgical History S/P cardiac catheterization No pertinent past surgical history Family History Father CVD (cardiovascular disease) Mother Anxiety Maternal Aunt Cancer Social History Household Members: Spouse and Children [facility] Are you a primary caregiver assisted living to a significant other at home: No Do you presently have visiting nurse or other home services: No Alcohol intake: current Alcohol intake frequency: holidays/special occasions only Patient Tobacco Use Status: Former Tobacco user Quit Date: 2003 Tobacco use type: Cigarette Years Smoked: 40 +/- e-Cigarette/Vaping Use: Never Used Second Hand Smoke Exposure: No service: No Current occupational status: 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 Cognitive needs: No Hearing needs: No Vision needs: Yes Review of Systems Const Reports chills, Reports fatigue, Reports fever(s), Reports frequent falls, Reports weakness, Reports weight gain and Reports weight loss ENT Reports dizziness Card Reports chest pain, Reports leg edema, Reports lightheadedness, Reports palpitations, Reports dyspnea and Reports dyspnea on exertion Resp Reports cough, Reports dyspnea and Reports dyspnea on exertion GI Reports hematochezia Musc Reports abnormal gait, Reports muscle weakness, Reports numbness, Reports radiating pain into limb and Reports tingling Neuro Reports abnormal gait, Reports dizziness, Reports frequent falls, Reports numbness, Reports tingling and Reports weakness Endo Reports fatigue and Reports palpitations Physical Exam Vital Signs: Last Vital Signs Pulse 60 05/02/23 11:06 BP 150/68 H 05/02/23 11:06 BMI result Body Mass Index 22.7 GENERAL APPEARANCE: in no acute distress, pleasant. NECK: no carotid bruit, no jugular venous distention. SKIN: no suspicious lesions, warm and dry. HEART: no murmurs, regular rate and rhythm. LUNGS: clear to auscultation bilaterally. ABDOMEN: soft, nontender. EXTREMITIES: no edema. PERIPHERAL PULSES: equal. NEUROLOGIC: No gross deficits, AAO X 3 Office Procedures EKG Details: Sinus rhythm 60 beats per minute, normal axis, normal EKG, QTC 430 milliseconds. [id number], Complete Assessment & Plan Assessment & Plan (1) Hypertension, essential: Code(s): I10 - Essential (primary) hypertension Plan Pleasant 68 year gentleman who is here for follow-up. He has elevated blood pressures. He is taking hydrochlorothiazide 12.5 mg daily, amlodipine 5 mg daily and carvedilol 6.25 mg twice a day. I have advised him to increase the amlodipine to 5 mg twice a day. He will come back in 7-10 days for a blood pressure check with RN. If blood pressure is still elevated then we will titrate medications further. I have advised him to cut back on his salt intake. Thank you for allowing me to participate in the care of your patient. Please feel free to contact me if you have any questions. Coding Level of Care Code Est Pt Level 4 (38123) Diagnoses Hypertension, essential I10 CPT Codes EKG - CPT: 15367-Gztoxpvudhzdetwps, Complete ([id number])
== END 2023-05-02 11:28 | disposition home or self-care (01) ==
PROVIDERS: PCP Internal Medicine; Visit Provider Internal Medicine Cardiovascular Disease
DX: I10 Essential (primary) hypertension (principal)
CPT/HCPCS: 93010; 99214

== ENCOUNTER → 2023-05-02 11:00 | Outpatient (BNVA) | payer MEDICARE, SELFPAY | PROVIDERS: PCP Internal Medicine; Visit Provider Internal Medicine Cardiovascular Disease | DX: I10 Essential (primary) hypertension (principal) | CPT/HCPCS: 93005; 99212 ==

== ENCOUNTER 2023-05-11 09:05 | Outpatient (REF) | payer MEDICARE, SELFPAY ==
[2023-05-11 09:14] LABS: MANUAL DIFF FLAG NO
[2023-05-11 09:18] LABS: Basophils Absolute Auto 0.1 X10*3/uL (0.0-0.2); Basophils Percent Auto 0.9 % (0-2); Eosinophils Absolute Auto 0.1 X10*3/uL (0.0-0.4); Eosinophils Percent Auto 1.2 % (0-4); Hematocrit 37.6 % (42.0-52.0); Hemoglobin 12.8 g/dl (14.0-18.0); Imm Gran Abs Auto 0.03 X10*3/uL (0.00-0.03); Imm Gran Pct Auto 0.3 % (0.0-0.4); Lymphocytes Absolute Auto 1.9 X10*3/uL (1.2-4.9); Lymphocytes Percent Auto 18.9 % (20-40); Mean Corpuscular Volume 88.1 fL (80.0-98.0); Mean Platelet Volume 10.7 fL (9.4-12.4); Monocytes Percent Auto 9.8 % (2-11); Neutrophils Absolute Auto 6.9 x10*3/uL (2.0-8.3); Neutrophils Percent Auto 68.9 % (45-73); Platelet Count 260 X10*3/uL (160-400); Red Blood Count 4.27 X10*6/uL (4.60-5.80); Red Cell Distribution Width 13.2 % (11.0-16.0)
[2023-05-11 09:31] LABS: Alanine Aminotransferase 18 U/L (0-40); Albumin Level 4.3 g/dL (3.5-5.0); Alkaline Phosphatase 69 U/L (39-117); Anion Gap 15 (12-20); Aspartate Amino Transferase 19 U/L (5-37); Bilirubin Total 0.8 mg/dL (0.0-1.0); Blood Urea Nitrogen 11 mg/dL (9-16); Calcium 9.6 mg/dL (8.4-10.2); Carbon Dioxide 28 mmol/L (22-29); Chloride 101 mmol/L (96-108); Estimated Glomerular Filt Rate > 60; Glucose Random 103 mg/dL (60-115); Potassium 3.8 mmol/L (3.3-5.1); Sodium 140 mmol/L (135-145); Total Protein 8.4 g/dL (6.5-8.0)
== END 2023-05-11 09:06 | disposition home or self-care (01) ==
LOC: HO.LAB 09:05
PROVIDERS: Visit Provider Internal Medicine Medical Oncology
DX: D64.9 Anemia, unspecified (principal)
CPT/HCPCS: 36415; 80053; 85025

== ENCOUNTER → 2023-05-16 09:50 | Outpatient (BNVA) | payer MEDICARE, SELFPAY | PROVIDERS: PCP Internal Medicine; Visit Provider Internal Medicine Cardiovascular Disease ==

== ENCOUNTER 2023-06-06 11:46 | Outpatient (AMB) | payer MEDICARE, SELFPAY ==
[2023-06-06 11:50] VITALS: BP 142/80; PULSE 57; O2SAT 97; BMI 22.6
--- NOTE | 2023-06-06 11:50 | MHC.PC.OV ---
Vital Signs 06/06/23 11:50 Height 5 ft 11 in Weight 162 lb 6 oz BMI 22.6 BP 142/80 H Blood Pressure Location Lt brachial Position Sitting Pulse 57 Pulse Source Pulse Oximeter Pulse Oximetry (%) 97 Oxygen Delivery Method Room Air Intake Visit Reasons: Annual PE Allergies Penicillins Adverse Reaction (Severe, Verified 06/06/23 11:50) Diarrhea Medication List - Last Reconciled 06/06/23 by Lani Sutton MD amlodipine 5 mg PO DAILY atorvastatin 40 mg PO DAILY blood pressure monitor As directed carvedilol 6.25 mg PO BID cyanocobalamin (vitamin B-12) 1,000 mcg sublingual DAILY cyclobenzaprine 10 mg PO TID PRN folic acid 1 mg PO DAILY hydrochlorothiazide 12.5 mg PO DAILY omeprazole 20 mg PO QAM Tobacco use date assessed: 06/06/23 Fall risk assessment: No Falls in past year Last assessed Fall Risk: 06/06/23 Dental Screening Dental Screen Date: 06/06/23 HPI Annual PE HPI Details Physical exam appointment Patient had colonoscopy with [facility] gastroenterology 6 years ago Currently established with Dr. St[facility] And has appointment coming up for EGD and colonoscopy next month, omeprazole through Gastroenterology Immunizations up-to-date as per patient Patient has started to signs of prostatic hypertrophy, I am starting him Flomax and he will be seeing urologist for prostate exam Having difficulty starting the stream of urine, which has been happening for a while and is getting worse He also have a skin growth left cheek for that he need evaluation by Dermatology Patient is seeing hematology for management of anemia Last hemoglobin was 12.8 Blood pressure management through cardiology cholesterol medication through Cardiology Patient have a history of left-sided sciatica which flares every now and then, he is enquiring if it flares up again and he needs a cortisone injection can he just give me a call for referral Which will be fine Follow-up 1 year for physical exam [facility] Medical History Dyspepsia Hypertension, essential Lipid disorder Abnormal stress test Surgical History S/P cardiac catheterization No pertinent past surgical history Family History Father CVD (cardiovascular disease) Mother Anxiety Maternal Aunt Cancer Social History Household Members: Spouse and Children Housing: Condominium Are you a primary healthcare customer service to a significant other at home: No Do you presently have visiting nurse or other home services: No Alcohol intake: current Alcohol intake frequency: holidays/special occasions only Patient Tobacco Use Status: Former Tobacco user Quit Date: 2003 Tobacco use type: Cigarette Years Smoked: 40 +/- e-Cigarette/Vaping Use: Never Used Second Hand Smoke Exposure: No service: No Current occupational status: 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 1. Little interest or pleasure in doing things: not at all 2. Feeling down, depressed, or hopeless: not at all 3. Trouble falling or staying asleep, or sleeping too much: not at all 4. Feeling tired or having little energy: not at all 5. Poor appetite or overeating: not at all 6. Feeling bad about yourself - or that you are a failure or have let yourself or your family down: not at all 7. Trouble concentrating on things, such as reading the newspaper or watching television: not at all 8. Moving or speaking so slowly that other people could have noticed. Or the opposite - being so fidgety or restless that you have been moving around a lot more than usual: not at all 9. Thoughts that you would be better off or of hurting yourself in some way: not at all Total score: 0 Depression Screening Interpretation: Negative Depression Screening Done: Yes 84576 - PHQ-9 Billing: Yes Source: Developed by Drs. Tawanda Nelson, Sharon Wu, Manan Bautista and colleagues, with an educational martha from [employer]. Thrive Questionnaire Date Thrive assessed: 06/06/23 I am a: Patient What is your living situation today?: I have a steady place to live Within the past 12 months, did the food you bought not last and you didn't have the money to get more?: Never true Within the past 12 months, did you worry whether your food would run out before you got money to buy more?: Never true Do you have trouble paying for medicines?: No Do you have trouble getting transportation to medical appointments?: No Do you have trouble paying your heating and electricity bill?: No Do you have trouble taking care of your child, family member or friend?: No Do you have trouble with day-to-day activities such as bathing, preparing meals, shopping, managing finances, etc.?: No Are you currently unemployed and looking for a job?: No Are you interested in more education?: No Please select the resources that you would like help with: None Currently or been in a relationship where the following occur: no concerns reported THRIVE Score: 0 AUDIT C Alcohol Use Questionnaire (AUDIT-C) 1. How often do you have a drink containing alcohol?: Monthly or less 2. How many drinks containing alcohol do you have on a typical day when you are drinking?: 1 or 2 3. How often do you have six or more drinks on one occasion?: Never Total Score: 1 Score Reviewed/Action Taken: Yes KIKE-7 AMB Questionnaire KIKE-7 Date KIKE - 7 assessed: 06/06/23 Feeling nervous, anxious, or on edge: 0 = Not at all Not being able to stop or control worryin = Not at all Worrying too much about different things: 0 = Not at all Trouble relaxin = Not at all Being so restless that it is hard to sit still: 0 = Not at all Becoming easily annoyed or irritable: 0 = Not at all Feeling afraid as if something awful might happen: 0 = Not at all Total KIKE-7 score (0-4 normal; 5-9 mild; 10-14 moderate; 15-21 severe): 0 Source: Developed by Drs. Tawanda Nelson, Sharon Wu, Manan Bautista and colleagues, with an educational martha from [employer]. KIKE-7 Assessment Billing KIKE-7 Assessment Tool: KIKE-7 Assessment 11643 Review of Systems Const Denies chills, Denies fever(s) and Denies headache(s) Eyes Denies blurry vision ENT Denies headache(s), Denies nasal discharge, Denies nasal obstruction, Denies odynophagia and Denies sinus pain Card Denies chest pain at rest and Denies chest pain with activity Resp Denies cough and Denies hemoptysis GI Denies diarrhea, Denies odynophagia, Denies vomiting and Denies hematemesis Reports as per HPI Musc Denies abnormal gait Skin/Breast Reports as per HPI Neuro Denies Neuro-related abnormal movements, Denies Abnormal speech present, Denies abnormal gait, Denies headache(s) and Denies Sensory deficit (Neuro) Psych Denies mood swings and Denies paranoia Endo Reports as per HPI Cornelius/Lymph Reports as per HPI Aller/Immun Reports as per HPI Physical exam (Primary Care) Vital Signs: Last Vital Signs Pulse 57 06/06/23 11:50 BP 142/80 H 06/06/23 11:50 Pulse Ox 97 06/06/23 11:50 Oxygen Delivery Method Room Air 06/06/23 11:50 BMI result Body Mass Index 22.6 Tobacco/Smoking Status: Tobacco use Status Tobacco use date assessed 05/24/22 05/24/22 10:31 Patient Tobacco Use Status Former Tobacco user 08/31/22 09:11 Tobacco use type Cigarette 05/24/22 10:31 e-Cigarette/Vaping Use Never Used 05/24/22 10:31 Depression Screening Interpretation: Negative Thrive Assessment: Date of Thrive Assessment Date Thrive assessed 08/02/21 05/24/22 10:31 Currently or been in a relationship where the following occur: no concerns reported Const General: cooperative, comfortable and no acute distress Orientation/consciousness: patient oriented x3 HENMT Head: Yes normocephalic and Yes atraumatic Eyes General: appearance normal, both eyes and all related structures Pupils: Equal, round and reactive pupils present EOM: EOMs intact bilaterally Neck Neck: Yes supple and No lymphadenopathy Thyroid: Thyroid normal Lymphatic: no lymphadenopathy noted Resp Effort & Inspection: normal respiratory effort and able to speak in complete sentences Auscultation: clear to auscultation bilaterally Cardio Heart sounds: S1 normal heart sound present and S2 normal heart sound present GI Palpation (GI): Soft to palpation and nontender Auscultation: normal bowel sounds General: Yes no CVA tenderness Back/Spine/Pelvis Back: no CVA tenderness Skin General skin exam: elasticity normal and turgor normal Neuro General: patient oriented x3 and gait normal Cranial nerves: Yes Equal, round and reactive pupils present Speech: No Abnormal speech present Sensory Exam: No Sensory deficit (Neuro) Coordination: tandem gait normal and Romberg test negative Extrem General: Yes normal exam except as noted and No edema Assessment and Plan Assessment & Plan (1) Encounter for general adult medical examination with abnormal findings: Code(s): Z00.01 - Encounter for general adult medical examination with abnormal findings (2) Dyspepsia: Code(s): R10.13 - Epigastric pain (3) Hypertension, essential: Code(s): I10 - Essential (primary) hypertension (4) Lipid disorder: Code(s): E78.9 - Disorder of lipoprotein metabolism, unspecified (5) Prostatic hypertrophy: Code(s): N40.0 - Benign prostatic hyperplasia without lower urinary tract symptoms (6) Skin growth: Code(s): D49.2 - Neoplasm of unspecified behavior of bone, soft tissue, and skin Plan Physical exam appointment Patient had colonoscopy with [facility] gastroenterology 6 years ago Currently established with Dr. St[facility] And has appointment coming up for EGD and colonoscopy next month, omeprazole through Gastroenterology Immunizations up-to-date as per patient Patient has started to signs of prostatic hypertrophy, I am starting him Flomax and he will be seeing urologist for prostate exam Having difficulty starting the stream of urine, which has been happening for a while and is getting worse He also have a skin growth left cheek for that he need evaluation by Dermatology Patient is seeing hematology for management of anemia Last hemoglobin was 12.8 Blood pressure management through cardiology cholesterol medication through Cardiology Patient have a history of left-sided sciatica which flares every now and then, he is enquiring if it flares up again and he needs a cortisone injection can he just give me a call for referral Which will be fine Follow-up 1 year for physical exam Orders: Referrals Dermatology Referral D49.2 - Neoplasm of unspecified behavior of bone, soft tissue, and skin, Z12.83 - Encounter for screening for malignant neoplasm of skin Urology Referral N40.0 - Benign prostatic hyperplasia without lower urinary tract symptoms Medications: New tamsulosin (Flomax) 0.4 mg PO BEDTIME 30 caps 0RF Coding Level of Care Code Est Pt Prev Care >65y(58109) Diagnoses Encounter for general adult medical examination with abnormal findings Z00.01 Dyspepsia R10.13 Hypertension, essential I10 Lipid disorder E78.9 Prostatic hypertrophy N40.0 Skin growth D49.2 Additional Codes KIKE-7 Assessment Billing - KIKE-7 Assessment Tool: KIKE-7 Assessment 09396 ([id number])
== END 2023-06-06 12:19 | disposition home or self-care (01) ==
PROVIDERS: Visit Provider Internal Medicine
DX: Z00.00 Encounter for general adult medical examination without abnormal findings (principal); R10.13 Epigastric pain; I10 Essential (primary) hypertension; E78.9 Disorder of lipoprotein metabolism, unspecified; N40.0 Benign prostatic hyperplasia without lower urinary tract symptoms; D49.2 Neoplasm of unspecified behavior of bone, soft tissue, and skin
CPT/HCPCS: 99397

== ENCOUNTER 2023-06-26 08:25 | Outpatient (REF) | payer MEDICARE, SELFPAY ==
[2023-06-26 08:45] LABS: OBS Int Ctl Valid YES; OBS1 NEGATIVE (NEGATIVE); OBS2 NEGATIVE (NEGATIVE); OBS3 NEGATIVE (NEGATIVE)
== END 2023-06-26 08:26 | disposition home or self-care (01) ==
LOC: HO.LNP 08:25
PROVIDERS: Visit Provider Internal Medicine
DX: D64.9 Anemia, unspecified (principal)
CPT/HCPCS: 82270

== ENCOUNTER 2023-06-26 08:55 | Outpatient (REF) | payer MEDICARE, SELFPAY ==
[2023-06-26 09:02] LABS: MANUAL DIFF FLAG NO
[2023-06-26 09:33] LABS: Basophils Absolute Auto 0.1 X10*3/uL (0.0-0.2); Basophils Percent Auto 0.9 % (0-2); Eosinophils Absolute Auto 0.3 X10*3/uL (0.0-0.4); Eosinophils Percent Auto 2.6 % (0-4); Hematocrit 35.6 % (42.0-52.0); Imm Gran Abs Auto 0.04 X10*3/uL (0.00-0.03); Imm Gran Pct Auto 0.4 % (0.0-0.4); Lymphocytes Absolute Auto 1.7 X10*3/uL (1.2-4.9); Lymphocytes Percent Auto 17.5 % (20-40); Mean Corpuscular HGB Conc 33.7 g/dl (31.0-36.0); Mean Corpuscular Hemoglobin 29.6 pg (27.0-33.0); Mean Corpuscular Volume 87.9 fL (80.0-98.0); Mean Platelet Volume 10.8 fL (9.4-12.4); Monocytes Percent Auto 9.5 % (2-11); Neutrophils Absolute Auto 6.9 x10*3/uL (2.0-8.3); Neutrophils Percent Auto 69.1 % (45-73); Platelet Count 272 X10*3/uL (160-400); Red Blood Count 4.05 X10*6/uL (4.60-5.80); Red Cell Distribution Width 13.3 % (11.0-16.0)
[2023-06-26 10:11] LABS: Iron 66 mcg/dL (45-160); Percent Iron Saturation 24 % (15-50); Total Iron Binding Capacity 275 mcg/dL (228-428); Unsaturated Iron Binding 209 ug/dL
[2023-06-26 10:31] LABS: Ferritin 36 ng/mL (20-250)
== END 2023-06-26 08:56 | disposition home or self-care (01) ==
LOC: HO.LAB 08:55
PROVIDERS: PCP Internal Medicine; Visit Provider Internal Medicine
DX: D64.9 Anemia, unspecified (principal)
CPT/HCPCS: 36415; 82728; 83540; 85025

== ENCOUNTER 2023-07-16 09:29 | Outpatient (AMB) | payer MEDICARE, SELFPAY ==
[2023-07-16 11:05] VITALS: BP 150/90; PULSE 69; TEMP 36.3; O2SAT 97; BMI 23.3
--- NOTE | 2023-07-16 11:05 | MHC.OFFWIV ---
Intake Vital Signs 07/16/23 11:05 Height 5 ft 11 in Weight 167 lb BMI 23.3 BP 150/90 H Pulse 69 Pulse Source Pulse Oximeter Temp 97.3 F Temp Source Temporal Artery Scan Pulse Oximetry (%) 97 Oxygen Delivery Method Room Air Intake Visit Reasons: Left 2nd toe is swollen/ pain Intake Note: pt is here today for lft 2nd toe is swollen started 2 days ago Patient Tobacco Use Status: Former Tobacco user Quit Date: 2003 Allergies Penicillins Adverse Reaction (Severe, Verified 07/16/23 12:08) Diarrhea Medication List - Last Reconciled 07/16/23 by Mario Alberto Snyder MD amlodipine 5 mg PO BID atorvastatin 40 mg PO DAILY blood pressure monitor As directed carvedilol 6.25 mg PO BID cyanocobalamin (vitamin B-12) 1,000 mcg sublingual DAILY cyclobenzaprine 10 mg PO TID PRN folic acid 1 mg PO DAILY hydrochlorothiazide 12.5 mg PO DAILY omeprazole 20 mg PO QAM tamsulosin (Flomax) 0.4 mg PO BEDTIME Do you need a note to return to daycare/school/sports/work: No HPI Left 2nd toe is swollen/ pain HPI Details 68-year-old male presents to the office for a sick visit. He has noticed redness on the 2nd toe of his left foot. Does not recall any fall or stubbing the toe. The toe is getting progressively painful. [facility]ENDING SALE TO [facility] Medical History Dyspepsia Hypertension, essential Lipid disorder Abnormal stress test Surgical History S/P cardiac catheterization No pertinent past surgical history Family History Father CVD (cardiovascular disease) Mother Anxiety Maternal Aunt Cancer Social History Household Members: Spouse and Children Housing: Condominium Are you a primary children's zoo caretaker to a significant other at home: No Do you presently have visiting nurse or other home services: No Alcohol intake: current Alcohol intake frequency: holidays/special occasions only Patient Tobacco Use Status: Former Tobacco user Quit Date: 2003 Tobacco use type: Cigarette Years Smoked: 40 +/- e-Cigarette/Vaping Use: Never Used Second Hand Smoke Exposure: No service: No Current occupational status: 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 Assessment & Plan Assessment & Plan (1) Cellulitis, toe: Code(s): L03.039 - Cellulitis of unspecified toe Plan: Antibiotic and anti-inflammatory called in. If symptoms do not improve to follow-up here. Coding Level of Care Code Est Pt Level 3 (64575) Diagnoses Cellulitis, toe L03.039
== END 2023-07-16 14:25 | disposition home or self-care (01) ==
PROVIDERS: PCP Internal Medicine; Visit Provider Internal Medicine
DX: L03.039 Cellulitis of unspecified toe (principal)
CPT/HCPCS: 99213

== ENCOUNTER 2023-07-24 09:33 | Outpatient (AMB) | payer MEDICARE, SELFPAY ==
[2023-07-24 09:57] VITALS: BP 114/70; PULSE 82; TEMP 36.5; O2SAT 97; BMI 22.7
--- NOTE | 2023-07-24 09:57 | AM.OFFWIN_ITS ---
Intake Vital Signs 07/24/23 09:57 Height 5 ft 11 in Weight 163 lb BMI 22.7 BP 114/70 Blood Pressure Location Lt brachial Position Sitting Pulse 82 Pulse Source Pulse Oximeter Temp 97.7 F Temp Source Temporal Artery Scan Pulse Oximetry (%) 97 Oxygen Delivery Method Room Air Intake Visit Reasons: EP Intake Note: pt is here today for rt groin area started 3 days ago Patient Tobacco Use Status: Former Tobacco user Quit Date: 2003 Allergies Penicillins Adverse Reaction (Severe, Verified 07/24/23 10:00) Diarrhea Do you need a note to return to daycare/school/sports/work: No HPI HPI Comments History of Present Illness Details 68-year-old male presents today complain ing of pain in his right testicle that started 3 or 4 days ago. States he also has some dysuria. States he does have a past medical history of benign prostatic hypertrophy PFSH Medical History Dyspepsia Hypertension, essential Lipid disorder Abnormal stress test Surgical History S/P cardiac catheterization No pertinent past surgical history Family History Father CVD (cardiovascular disease) Mother Anxiety Maternal Aunt Cancer Social History Household Members: Spouse and Children 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 Cognitive needs: No Hearing needs: No Vision needs: Yes Review of Systems Const All systems reviewed & are unremarkable except as noted in HPI and below Eyes Reports no additional complaints ENT Reports no additional complaints Card Reports no additional complaints Resp Reports no additional complaints GI Reports no additional complaints Reports difficulty urinating Physical Exam Vital Signs: Last Vital Signs Temp 97.7 F 07/24/23 09:57 Pulse 82 07/24/23 09:57 BP 114/70 07/24/23 09:57 Pulse Ox 97 07/24/23 09:57 Oxygen Delivery Method Room Air 07/24/23 09:57 BMI result Body Mass Index 22.7 Const General: healthy appearing and no acute distress Male General Exam: Yes normal external exam (No palpable hernia present with or without Valsalva maneuver) Testes: epididymal tenderness Results AMB Urinalysis, Automated UA Leukoctes 15 April/uL Last Edit by Dereje Rodriguez CMA on 07/24/23 10:40 UA Nitrite Negative Last Edit by Dereje Rodriguez CMA on 07/24/23 10:40 UA Urobilinogen 0.2 mg/dL Last Edit by Dereje Rodriguez CMA on 07/24/23 10 :40 UA Protein 15 mg/dL Last Edit by Dereje Rodriguez CMA on 07/24/23 10:40 UA pH 5.5 Last Edit by Dereje Rodriguez CMA on 07/24/23 10:40 UA Blood 0 Joel/uL Last Edit by Dereje Rodriguez CMA on 07/24/23 10:40 UA Specific [place] 1.030 Last Edit by Dereje Rodriguez CMA on 07/24/23 1 0:40 UA Ketone Positive Last Edit by Dereje Rodriguez CMA on 07/24/23 10:40 UA Bilirubin 1 mg/dL Last Edit by Dereje Rodriguez CMA on 07/24/23 10:40 UA Glucose 0 mg/dL Last Edit by Dereje Rodriguez CMA on 07/24/23 10:40 Assessment & Plan Assessment & Plan (1) UTI (urinary tract infection): Code(s): N39.0 - Urinary tract infection, site not specified Plan: The patient will take antibiotic for a week. If he starts to develop severe pain into his right inguinal fold or testicle to go to the emergency department. Orders: Orders AMB Urinalysis Automated Today Z13.9 - Encounter for screening, unspecified Medications: New doxycycline hyclate 100 mg PO BID 7 days 14 caps 0RF Coding Level of Care Code Est Pt Level 3 (36123) Diagnoses UTI (urinary tract infection) N39.0
== END 2023-07-24 11:20 | disposition home or self-care (01) ==
PROVIDERS: PCP Internal Medicine; Visit Provider Physician Assistant Medical
DX: N39.0 Urinary tract infection, site not specified (principal)
CPT/HCPCS: 81003; 99213

== ENCOUNTER 2023-07-30 10:40 | Outpatient (AMB) | payer MEDICARE, SELFPAY ==
--- NOTE | 2023-07-30 10:57 | A.OFFVIS_ITS ---
Intake Intake Visit Reasons: Benign prostatic hyperplasia Intake Note: New Patient presents for initial visit for BPH Urology Medications: Tamsulosin Blood Thinner: none PVR:10mls [place] Required: No Allergies Penicillins Adverse Reaction (Severe, Verified 07/30/23 11:37) Diarrhea Medication List - Last Reconciled 07/30/23 by BERNARD Agee-LIA amlodipine 5 mg PO BID atorvastatin 40 mg PO DAILY blood pressure monitor As directed carvedilol 6.25 mg PO BID cyanocobalamin (vitamin B-12) 1,000 mcg sublingual DAILY cyclobenzaprine 10 mg PO TID PRN doxycycline hyclate 100 mg PO BID 7 days folic acid 1 mg PO DAILY hydrochlorothiazide 12.5 mg PO DAILY meloxicam 15 mg PO DAILY omeprazole 20 mg PO QAM tamsulosin (Flomax) 0.4 mg PO BEDTIME 90 days HPI HPI Comments History of Present Illness Details David is a 68-year-old male patient of Dr. Sutton. He has a past medical history of dyspepsia, hypertension, and lipid disorder. Presents to the office today as a new patient for ongoing lower urinary tract symptoms. In discussion with the patient today he reports having followed up with his PCP as well as urgent care over the last 3-4 months' regarding ongoing lower urinary tract symptoms he has been experiencing. He reports noting urinary hesitancy and straining upon urination however recently started Flomax with his PCP and has felt this to be extremely helpful in the symptoms. He reports having followed up with urgent care for question of a urinary tract infection verses epididymitis. This is unclear at this time. He reports having been prescribed Bactrim and has since completed this antibiotic however recently started doxycycline. He otherwise currently denies any bothersome urinary issues or concerns. He denies urinary urgency, urinary frequency, incontinence, nocturia, hematuria, dysuria, foul smelling urine, flank pain, fever, and or chills. He reports be happy with his current voiding parameters on 0.4 mg of Flomax and is requesting refill as he only received a 30 day supply with his PCP. Discussed further workup with PSA and retroperitoneal ultrasound. STEPHANIE offered however deferred. Patient discusses his upcoming upper endoscopy the end of next month. In office urinalysis results reviewed with the patient today. PH 5.5 discussed importance of water/fluid intake. PVR 10 mL. 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 He otherwise offers no other issues or concerns at this time. [facility] Medical History Dyspepsia Hypertension, essential Lipid disorder Abnormal stress test Surgical History S/P cardiac catheterization No pertinent past surgical history Family History Father CVD (cardiovascular disease) Mother Anxiety Maternal Aunt Cancer Social History Household Members: Spouse and Children Housing: Condominium Are you a primary school childcare attendant to a significant other at home: No Do you presently have visiting nurse or other home services: No Alcohol intake: current Alcohol intake frequency: holidays/special occasions only Patient Tobacco Use Status: Former Tobacco user Quit Date: 2003 Tobacco use type: Cigarette Years Smoked: 40 +/- e-Cigarette/Vaping Use: Never Used Second Hand Smoke Exposure: No service: No Current occupational status: 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 Cognitive needs: No Hearing needs: No Vision needs: Yes Review of Systems Const Reports no additional complaints Eyes Reports no additional complaints ENT Reports no additional complaints Card Reports as per HPI Resp Reports no additional complaints GI Reports as per HPI Reports as per HPI Musc Reports no additional complaints Neuro Reports no additional complaints Psych Reports no additional complaints Endo Reports no additional complaints Cornelius/Lymph Reports no additional complaints Aller/Immun Reports no additional complaints Physical Exam Const General: cooperative, healthy appearing, comfortable, no acute distress, well developed, alert and awake Orientation/consciousness: patient oriented x3 Limitations: no limitations HEENT Head: Yes normal to inspection, Yes normocephalic and Yes atraumatic Ears: hearing grossly normal bilaterally Eyes General: appearance normal, both eyes and all related structures Neck Neck: Yes normal visual inspection and Yes trachea midline Chest Chest palpation & inspection: normal inspection of the chest Resp Effort & Inspection: normal respiratory effort and able to speak in complete sentences Cardio Rate: regular rate GI Inspection: Yes normal to inspection General: Yes no CVA tenderness Back/Spine/Pelvis Back: no CVA tenderness Skin General skin exam: no rashes or lesions noted Neuro General: patient oriented x3 Extrem General: Yes normal to inspection Psych Appearance: grossly normal and well kempt Mental Status: mental status grossly normal Speech and movement: Normal speech and movement present and Clear speech present Affect: normal affect Attitude: cooperative Thought process: Normal thought process present Thought content: Normal thought content present Insight: Fair insight present (Psych) Judgement: Fair judgement present (Psych) Office Procedures Post Void Residual Post Residual Void Post Void Residual (PVR): 10 [id number] Void Residual by ultrasound Results AMB Urinalysis, Automated UA Leukoctes 0 April/uL Last Edit by [employer]Locker on 07/30/23 11:29 UA Nitrite Negative Last Edit by [employer] on 07/30/23 11:29 UA Urobilinogen 0.2 mg/dL Last Edit by [employer] on 07/30/23 11:29 UA Protein 0 mg/dL Last Edit by [employer] on 07/30/23 11:29 UA pH 5.5 Last Edit by [employer] on 07/30/23 11:29 UA Blood 0 Joel/uL Last Edit by [employer]ocker on 07/30/23 11:29 UA Specific [place] 1.020 Last Edit by [employer]ocker on 07/30/23 11:29 UA Ketone Negative Last Edit by [employer] on 07/30/23 11:29 UA Bilirubin 0 mg/dL Last Edit by [employer] on 07/30/23 11:29 UA Glucose 0 mg/dL Last Edit by [employer] on 07/30/23 11:29 Results Reviewed Results Reviewed: Laboratory Last Values Urine pH (Auto) 5.5 07/30/23 11:25 Specific [place] (Auto) 1.020 07/30/23 11:25 Urine Protein (Auto) 0 mg/dL 07/30/23 11:25 Glucose (UA)(Auto) 0 mg/dL 07/30/23 11:25 Urine Ketones (Auto) Negative 07/30/23 11:25 Urine Blood (Auto) 0 Joel/uL 07/30/23 11:25 Urine Nitrite (Auto) Negative 07/30/23 11:25 Urine Bilirubin (Auto) 0 mg/dL 07/30/23 11:25 Urine Urobilinogen (Auto) 0.2 mg/dL 07/30/23 11:25 Leukocyte Esterase (Auto) 0 April/uL 07/30/23 11:25 Assessment & Plan Assessment & Plan (1) Urinary hesitancy due to benign prostatic hyperplasia: Code(s): N40.1 - Benign prostatic hyperplasia with lower urinary tract symptoms; R39.11 - Hesitancy of micturition (2) Straining on urination: Code(s): R39.16 - Straining to void Plan In office urinalysis results reviewed with the patient today; as noted above. PVR 10 mL. Discussed at length potential causes for lower urinary tract symptoms patient is experiencing. Discussed obtaining retroperitoneal ultrasound for further assessment evaluation. Will obtain PSA for further assessment evaluation. Refill provided on Flomax Discussed attempting to sit when voiding to relax pelvis to assist with voiding. Discussed importance of drinking water daily. Discussed possible near future in office urodynamics and or cystoscopy for further assessment evaluation if symptoms persist and/or worsen. Follow-up in 1-3 months with imaging and lab to be completed prior; or sooner with any issues, concerns, and or questions. Orders: Orders AMB Urinalysis Automated Today Z13.9 - Encounter for screening, unspecified AMB Post Void Residual by ultrasound Today N39.0 - Urinary tract infection, site not specified US retroperitoneal comp Today N40.1 - Benign prostatic hyperplasia with lower urinary tract symptoms, R39.11 - Hesitancy of micturition, R39.16 - Straining to void Prostate Specific Antigen Today N40.1 - Benign prostatic hyperplasia with lower urinary tract symptoms, R39.11 - Hesitancy of micturition Medications: Changed From tamsulosin (Flomax) 0.4 mg PO BEDTIME 30 caps 0RF To tamsulosin (Flomax) 0.4 mg PO BEDTIME 90 days 90 caps 1RF Discontinued sulfamethoxazole-trimethoprim 800-160 mg (Bactrim DS) Discontinued Reason: Patient Completed Course 1 tab PO BID 7 days 14 tabs 0RF Patient Instructions: The patient had an opportunity to ask questions regarding the treatment plan. All questions were answered. Physical exam, labs, and imaging were discussed and reviewed in detail. As well as risks, benefits, and discussion of treatment choices. No major barriers to understanding were identified. The patient expressed understanding and agreement with the above treatment plan. The patient was made aware they should contact our office by phone for worsening of their current condition, the appearance of new symptoms, or with any questions or concerns. Compliance is encouraged with any medications and follow up testing that is ordered. It is a privilege to be allowed the opportunity to participate in? your urological care.? Again, if you have any questions or concerns If you have any questions or concerns please do not hesitate to contact me. The office is [phone]. This note is constructed using voice recognition software. While every effort has been made to ensure accuracy bleach supervisor errors may have been included. Yours sincerely, BERNARD Agee- Coding Level of Care Code New Pt Level 3 (79901) Diagnoses Urinary hesitancy due to benign prostatic hyperplasia N40.1; R39.11 Straining on urination R39.16 CPT Codes Post Residual Void - PVR CPT Code: 78095-[id number] Void Residual by ultrasound ([id number])
== END 2023-07-30 11:32 | disposition home or self-care (01) ==
PROVIDERS: PCP Internal Medicine; Visit Provider Nurse Practitioner Family
DX: N40.1 Benign prostatic hyperplasia with lower urinary tract symptoms (principal); R39.11 Hesitancy of micturition; R39.16 Straining to void; Z13.9 Encounter for screening, unspecified
CPT/HCPCS: 99203

== ENCOUNTER → 2023-07-30 10:40 | Outpatient (BNVA) | payer MEDICARE, SELFPAY | PROVIDERS: PCP Internal Medicine; Visit Provider Nurse Practitioner Family | DX: N40.1 Benign prostatic hyperplasia with lower urinary tract symptoms (principal); N13.8 Other obstructive and reflux uropathy; N39.0 Urinary tract infection, site not specified; R39.11 Hesitancy of micturition; R39.16 Straining to void; Z79.899 Other long term (current) drug therapy | CPT/HCPCS: 51798; 81003; 99202 ==

== ENCOUNTER 2023-08-23 08:41 | Outpatient (AMB) | payer MEDICARE, SELFPAY ==
--- NOTE | 2023-08-23 09:15 | MHC.PC.OV ---
Intake Visit Reasons: Sciatic Nerve~ [phone] Allergies Penicillins Adverse Reaction (Severe, Verified 08/23/23 09:16) Diarrhea Medication List - Last Reconciled 08/23/23 by Lani Sutton MD amlodipine 5 mg PO BID atorvastatin 40 mg PO DAILY blood pressure monitor As directed carvedilol 6.25 mg PO BID cyanocobalamin (vitamin B-12) 1,000 mcg sublingual DAILY cyclobenzaprine 10 mg PO TID PRN folic acid 1 mg PO DAILY hydrochlorothiazide 12.5 mg PO DAILY meloxicam 15 mg PO DAILY omeprazole 20 mg PO QAM tamsulosin (Flomax) 0.4 mg PO BEDTIME 90 days Tobacco use date assessed: 08/23/23 Fall risk assessment: No Falls in past year Last assessed Fall Risk: 08/23/23 Dental Screening Dental Screen Date: 08/23/23 Did you have a dental visit in the last 12 months?: Yes Did you have a dental problem in the last 6 months where you did not have access to dental care?: No Was dental information given to patient?: Patient has dentist HPI Sciatic Nerve~ [phone] HPI Details Patient is 68-year-old gentleman this is a telemedicine conference Patient have a history of left lumbar radiculitis, last time he had flare up was last year He was evaluated by [facility] and treated Patient felt better Until recently he started having similar pain radiating to his right leg There is no new bowel or bladder problems Patient is requesting a cortisone injection, I have placed a referral to [facility] Patient also have a history of renal calculi, he has been having pain right groin area radiating to his testes He was evaluated early this month in our walk-in clinic UA was done which shows mild positive leuk Estrace He was treated with doxycycline however pain continued I have ordered ultrasound of his right kidney, meanwhile patient was instructed to drink plenty of water He does not have any fever or chills We will book in house appointment for this coming Sunday to examine him further. [facility] Medical History Dyspepsia Hypertension, essential Lipid disorder Abnormal stress test Surgical History S/P cardiac catheterization No pertinent past surgical history Family History Father CVD (cardiovascular disease) Mother Anxiety Maternal Aunt Cancer Social History Household Members: Spouse and Children [facility] Are you a primary spiritual care coordinator to a significant other at home: No Do you presently have visiting nurse or other home services: No Alcohol intake: current Alcohol intake frequency: holidays/special occasions only Patient Tobacco Use Status: Former Tobacco user Quit Date: 2003 Tobacco use type: Cigarette Years Smoked: 40 +/- e-Cigarette/Vaping Use: Never Used Second Hand Smoke Exposure: No service: No Current occupational status: 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 How often do you have a drink containing alcohol?: Never 3. How often do you have six or more drinks on one occasion?: Never Total Score: 0 Score Reviewed/Action Taken: Yes KIKE-7 AMB Questionnaire KIKE-7 Date KIKE - 7 assessed: 06/06/23 Source: Developed by Drs. Tawanda Nelson, Sharon Wu, Manan Bautista and colleagues, with an educational martha from [employer]. Review of Systems Const Denies chills and Denies fever(s) ENT Denies epistaxis and Denies nasal discharge Card Denies chest pain Resp Denies chest congestion, Denies cough and Denies hemoptysis GI Denies diarrhea and Denies nausea Skin/Breast Denies rash Neuro Reports no additional complaints Psych Reports no additional complaints Endo Reports no additional complaints Physical exam (Primary Care) Tobacco/Smoking Status: Tobacco use Status Tobacco use date assessed 08/23/23 08/23/23 09:17 Patient Tobacco Use Status Former Tobacco user 08/23/23 09:17 Tobacco use type Cigarette 08/23/23 09:17 e-Cigarette/Vaping Use Never Used 08/23/23 09:17 Thrive Assessment: Date of Thrive Assessment Date Thrive assessed 06/06/23 08/23/23 09:17 Telehealth Telehealth Telehealth Platform: Telephone Location of provider rendering services: practice address Location of patient: address on file Patient Identification confirmed using: Name, : Yes Telehealth method: video (attempted) Patient verbally consented to treatment: Yes Patient verbally consented to billing insurance company: Yes Patient informed of any privacy concerns related to visit: Yes Minutes spent on Phone/Video with Pt.: 20 Assessment and Plan Assessment & Plan (1) History of kidney stones: Code(s): Z87.442 - Personal history of urinary calculi (2) Left lumbar radiculitis: Code(s): M54.16 - Radiculopathy, lumbar region (3) Right testicular pain: Code(s): N50.811 - Right testicular pain (4) Right groin pain: Code(s): R10.31 - Right lower quadrant pain (5) Renal colic on right side: Code(s): N23 - Unspecified renal colic Plan Patient is 68-year-old gentleman this is a telemedicine conference Patient have a history of left lumbar radiculitis, last time he had flare up was last year He was evaluated by [facility] and treated Patient felt better Until recently he started having similar pain radiating to his right leg There is no new bowel or bladder problems Patient is requesting a cortisone injection, I have placed a referral to [facility] Patient also have a history of renal calculi, he has been having pain right groin area radiating to his testes He was evaluated early this month in our walk-in clinic UA was done which shows mild positive leuk Estrace He was treated with doxycycline however pain continued I have ordered ultrasound of his right kidney, meanwhile patient was instructed to drink plenty of water He does not have any fever or chills We will book in house appointment for this coming Sunday to examine him further. Orders: Orders US renal RT Today N50.811 - Right testicular pain, R10.31 - Right lower quadrant pain, S63.502A - Unspecified sprain of left wrist, initial encounter, Z12.5 - Encounter for screening for malignant neoplasm of prostate, Z87.442 - Personal history of urinary calculi Referrals Pain Management Referral M54.16 - Radiculopathy, lumbar region Coding Level of Care Code Tele Est Pt Level 4 (39741) Diagnoses History of kidney stones Z87.442 Left lumbar radiculitis M54.16 Right testicular pain N50.811 Right groin pain R10.31 Renal colic on right side N23
== END 2023-08-23 09:51 | disposition home or self-care (01) ==
LOC: HO.HMGC 08:41
PROVIDERS: PCP Internal Medicine; Visit Provider Internal Medicine
DX: M54.16 Radiculopathy, lumbar region (principal); N50.811 Right testicular pain; R10.31 Right lower quadrant pain; N23 Unspecified renal colic; Z87.442 Personal history of urinary calculi
CPT/HCPCS: 99214

== ENCOUNTER 2023-08-31 11:16 | Outpatient (AMB) | payer MEDICARE, SELFPAY ==
--- NOTE | 2023-08-31 11:20 | A.OFFPC_ITS ---
Vital Signs 3 08/31/23 11:21 Height 5 ft 11 in Weight 160 lb BMI 22.3 BP 132/80 Blood Pressure Location Lt brachial Position Sitting Pulse 65 Pulse Source Pulse Oximeter Pulse Oximetry (%) 98 Oxygen Delivery Method Room Air Intake Visit Reasons: Follow Up~ Allergies Penicillins Adverse Reaction (Severe, Verified 08/31/23 11:25) Diarrhea Medication List - Last Reconciled 08/31/23 by Lani Sutton MD amlodipine 5 mg PO BID atorvastatin 40 mg PO DAILY blood pressure monitor As directed carvedilol 6.25 mg PO BID cyanocobalamin (vitamin B-12) 1,000 mcg sublingual DAILY cyclobenzaprine 10 mg PO TID PRN folic acid 1 mg PO DAILY hydrochlorothiazide 12.5 mg PO DAILY meloxicam 15 mg PO DAILY omeprazole 20 mg PO QAM Tobacco use date assessed: 08/31/23 Fall risk assessment: No Falls in past year Last assessed Fall Risk: 08/31/23 Dental Screening Dental Screen Date: 08/31/23 Did you have a dental visit in the last 12 months?: Yes Did you have a dental problem in the last 6 months where you did not have access to dental care?: No Was dental information given to patient?: Patient has dentist HPI Follow Up~ 2 HPI0 Details Patient is 68-year-old gentleman came in today to be evaluated for right groin pain Patient has been having that for a while Patient says that the pain radiate to his right testes On examination he has a bulge on right inguinal area Most likely patient has developed inguinal hernia, I am ordering CT scan to further evaluate 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 heavy lifting, 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 he feels soreness in that area There is no fever no chills no difficulty urinating, no penile discharge PFSH Medical History Dyspepsia Hypertension, essential Lipid disorder Abnormal stress test Surgical History S/P cardiac catheterization No pertinent past surgical history Family History Father CVD (cardiovascular disease) Mother Anxiety Maternal Aunt Cancer Social History Household Members: Spouse and Children [facility] Are you a primary home health care physician to a significant other at home: No Do you presently have visiting nurse or other home services: No Alcohol intake: current Alcohol intake frequency: holidays/special occasions only Patient Tobacco Use Status: Former Tobacco user Quit Date: 2003 Tobacco use type: Cigarette Years Smoked: 40 +/- e-Cigarette/Vaping Use: Never Used Second Hand Smoke Exposure: No service: No Current occupational status: 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 How often do you have a drink containing alcohol?: Monthly or less 2. How many drinks containing alcohol do you have on a typical day when you are drinking?: 1 or 2 3. How often do you have six or more drinks on one occasion?: Never Total Score: 1 Score Reviewed/Action Taken: Yes KIKE-7 AMB Questionnaire KIKE-7 Date KIKE - 7 assessed: 06/06/23 Source: Developed by Drs. Tawanda Nelson, Sharon Wu, Manan Bautista and colleagues, with an educational martha from [employer]. Review of Systems Const Denies chills and Denies fever(s) ENT Denies epistaxis and Denies nasal discharge Card Denies chest pain Resp Denies chest congestion, Denies cough and Denies hemoptysis GI Denies diarrhea and Denies nausea Skin/Breast Denies rash Neuro Reports no additional complaints Psych Reports no additional complaints Endo Reports no additional complaints Physical exam (Primary Care) Vital Signs: Last Vital Signs Pulse 65 08/31/23 11:21 BP 132/80 08/31/23 11:21 Pulse Ox 98 08/31/23 11:21 Oxygen Delivery Method Room Air 08/31/23 11:21 BMI result Body Mass Index 22.3 Tobacco/Smoking Status: Tobacco use Status Tobacco use date assessed 08/31/23 08/31/23 11:28 Patient Tobacco Use Status Former Tobacco user 08/31/23 11:21 Tobacco use type Cigarette 08/31/23 11:21 e-Cigarette/Vaping Use Never Used 08/31/23 11:21 Thrive Assessment: Date of Thrive Assessment Date Thrive assessed 06/06/23 08/31/23 11:21 Const General: cooperative, comfortable and no acute distress Orientation/consciousness: patient oriented x3 HENMT Head: Yes normocephalic Eyes General: appearance normal, both eyes and all related structures Neck Neck: Yes supple Resp Effort & Inspection: normal respiratory effort, no cough and no stridor Male genitals images: 2 1. Inguinal bulge, mild soreness but no pain with palpation Skin General skin exam: turgor normal Neuro General: patient oriented x3, tone normal and moves all extremities Extrem Right lower extremity: no edema Left lower extremity: no edema Assessment and Plan Assessment & Plan (1) Right groin pain: Code(s): R10.31 - Right lower quadrant pain (2) Right testicular pain: Code(s): N50.811 - Right testicular pain Plan Patient is 68-year-old gentleman came in today to be evaluated for right groin pain Patient has been having that for a while Patient says that the pain radiate to his right testes On examination he has a bulge on right inguinal area Most likely patient has developed inguinal hernia, I am ordering CT scan to further evaluate 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
[2023-08-31 11:21] VITALS: BP 132/80; PULSE 65; O2SAT 98; BMI 22.3
== END 2023-08-31 13:03 | disposition home or self-care (01) ==
PROVIDERS: PCP Internal Medicine; Visit Provider Internal Medicine
DX: R10.31 Right lower quadrant pain (principal); N50.811 Right testicular pain
CPT/HCPCS: 99214

== ENCOUNTER 2023-09-19 09:59 | Outpatient (AMB) | payer MEDICARE, SELFPAY ==
[2023-09-19 10:30] VITALS: BP 126/70; PULSE 69; TEMP 36.4; O2SAT 98; BMI 22.2
--- NOTE | 2023-09-19 10:30 | MHC.OFFWIV ---
Intake Vital Signs 09/19/23 10:30 Height 5 ft 11 in Weight 159 lb BMI 22.2 BP 126/70 Blood Pressure Location Lt brachial Position Sitting Pulse 69 Pulse Source Pulse Oximeter Temp 97.6 F Temp Source Temporal Artery Scan Pulse Oximetry (%) 98 Oxygen Delivery Method Room Air Intake Visit Reasons: EST/sinus pressure(lobby) Intake Note: pt is here today for sinus pressure started 2 days ago Patient Tobacco Use Status: Former Tobacco user Quit Date: 2003 Allergies Penicillins Adverse Reaction (Severe, Verified 09/19/23 10:37) Diarrhea Do you need a note to return to daycare/school/sports/work: No HPI EST/sinus pressure(lobby) HPI Details This is a 68-year-old male patient who presents today with a several-day history of primarily right-sided sinus pressure, with reported tenderness/pressure throughout cheek, jaw, teeth on that right side. He reports that prior to this, he has had nasal congestion for the past week. Denies any cough, shortness of breath, fever, chills, GI symptoms. Has been taking Tylenol without relief. COUNTS INCLUDE 234 BEDS AT THE [facility] Medical History Dyspepsia Hypertension, essential Lipid disorder Abnormal stress test Surgical History S/P cardiac catheterization No pertinent past surgical history Family History Father CVD (cardiovascular disease) Mother Anxiety Maternal Aunt Cancer Social History Household Members: Spouse and Children Housing: [facility] Are you a primary lawn care technician to a significant other at home: No Do you presently have visiting nurse or other home services: No Alcohol intake: current Alcohol intake frequency: holidays/special occasions only Patient Tobacco Use Status: Former Tobacco user Quit Date: 2003 Tobacco use type: Cigarette Years Smoked: 40 +/- e-Cigarette/Vaping Use: Never Used Second Hand Smoke Exposure: No service: No Current occupational status: 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 Cognitive needs: No Hearing needs: No Vision needs: Yes Review of Systems Const All systems reviewed & are unremarkable except as noted in HPI and below Physical Exam Vital Signs: Last Vital Signs Temp 97.6 F 09/19/23 10:30 Pulse 69 09/19/23 10:30 BP 126/70 09/19/23 10:30 Pulse Ox 98 09/19/23 10:30 Oxygen Delivery Method Room Air 09/19/23 10:30 BMI result Body Mass Index 22.2 Const General: cooperative, healthy appearing and no acute distress HEENT Head: Yes normal to inspection Ears: hearing grossly normal bilaterally and TM's normal bilaterally General nose exam: Nasal discharge present mucoid Face and sinus: Yes sinus tenderness (right maxillary, frontal) Throat: Yes posterior oropharynx normal Neck Neck: Yes no lymphadenopathy Resp Effort & Inspection: normal respiratory effort Auscultation: clear to auscultation bilaterally Cardio Rate: regular rate Rhythm: regular rhythm Skin General skin exam: no rashes or lesions noted Extrem General: Yes capillary refill normal and Yes no clubbing, cyanosis or edema Psych Appearance: grossly normal Mental Status: mental status grossly normal Speech and movement: Normal speech and movement present Assessment & Plan Assessment & Plan (1) Maxillary sinusitis, acute: Code(s): J01.00 - Acute maxillary sinusitis, unspecified Qualifiers: Recurrence: non-recurrent Qualified Code(s): J01.00 - Acute maxillary sinusitis, unspecified Plan: Patient has tolerated and done well on Amoxicillin in previous years for similar illness. Will start on short course of this. We discussed indications, use, possible side effects this. I also encouraged patient to start an [id number] decongestant to help with the sinus congestion/pressure. If he does not improve with treatment, he can return to the clinic for further evaluation. He verbalizes understanding and agrees to plan. Medications: New amoxicillin Take twice a day by mouth for 5 days. 500 mg PO BID 5 days 10 tabs 0RF J01.00 - Acute maxillary sinusitis, unspecified Coding Level of Care Code Est Pt Level 4 (46201) Diagnoses Acute non-recurrent maxillary sinusitis J01.00 Recurrence: non-recurrent
== END 2023-09-19 11:16 | disposition home or self-care (01) ==
PROVIDERS: PCP Internal Medicine; Visit Provider Nurse Practitioner Family
DX: J01.00 Acute maxillary sinusitis, unspecified (principal)
CPT/HCPCS: 99214

== ENCOUNTER 2023-10-03 16:36 | Outpatient (REF) | payer MEDICARE, SELFPAY ==
--- NOTE | ~2023-10-03 | CT_ITS ---
EXAMINATION: CT PELVIS WITHOUT CONTRAST CLINICAL INFORMATION: Possible hernia right anterior side of pelvis. Right lower quadrant abdominal pain. COMPARISON: Ultrasound appendix 09/07/2022. TECHNIQUE: Helical scanning was performed with submillimeter collimation through the pelvis. Sagittal and coronal multiplanar 2-D reconstructions were obtained. This CT examination was performed using dose optimization techniques as appropriate, variously including the following: *Automated exposure control *Adjustment of mA and/or kV according to patient size (this includes techniques or standardized protocols for targeted exams where dose is matched to indication/reason for exam; i.e. extremities or head) *Use of iterative reconstruction technique DLP: 394 mGy-cm FINDINGS: There is a mixed indirect and direct right inguinal hernia containing appendix. No inflammatory changes. There is a small fat-containing direct left inguinal hernia. Small fat-containing umbilical hernia. Included lower abdominal aorta is normal in caliber. Mild aortoiliac atherosclerotic disease. Sigmoid diverticulosis. No evidence of bowel obstruction. The prostate is enlarged. No adenopathy. Degenerative changes in the spine. CT/CT pelvis wo IV con IMPRESSION: Right inguinal hernia containing appendix. No acute inflammatory changes or evidence of obstruction.
== END 2023-10-03 16:37 | disposition home or self-care (01) ==
LOC: HO.CT 16:36
PROVIDERS: PCP Internal Medicine; Visit Provider Internal Medicine
DX: R10.31 Right lower quadrant pain (principal); R19.09 Other intra-abdominal and pelvic swelling, mass and lump; N50.811 Right testicular pain
CPT/HCPCS: 72192

== ENCOUNTER 2023-10-22 09:16 | Outpatient (AMB) | payer MEDICARE, SELFPAY ==
[2023-10-22 09:24] VITALS: BP 120/64; PULSE 69; BMI 22.4
--- NOTE | 2023-10-22 09:24 | MHC.OFFVIS ---
Vital Signs 10/22/23 09:24 Height 5 ft 11 in Weight 160 lb 7.944 oz BMI 22.4 BP 120/64 Blood Pressure Location Lt brachial Position Sitting Pulse 69 Pulse Source Pulse Oximeter Intake Visit Reasons: 6 mth f/up Intake Note: opt is here for his 6 mth f/up/ pt state that he is doing fine. Incendiaries Supervisor Required: No Accompanied by: Self / Same As Patient Allergies Penicillins Adverse Reaction (Severe, Verified 09/19/23 10:37) Diarrhea Medication List - Last Reconciled 10/22/23 by Lee Lepe MD amlodipine 5 mg PO BID atorvastatin 40 mg PO DAILY blood pressure monitor As directed carvedilol 6.25 mg PO BID cyanocobalamin (vitamin B-12) 1,000 mcg sublingual DAILY cyclobenzaprine 10 mg PO TID PRN folic acid 1 mg PO DAILY hydrochlorothiazide 12.5 mg PO DAILY meloxicam 15 mg PO DAILY omeprazole 20 mg PO QAM tamsulosin 0.4 mg PO BEDTIME HPI Comments Details: 68-year-old gentleman here for follow-up. He has h/o high blood pressure. Previously had facial flushing which was due to cyanocobalamin and after stopping it his facial flushing is improved. Doing well without any chest pain or shortness of breath. No new complaints. 05/02/23: He is here for follow-up today. Denying any symptoms. No chest discomfort shortness of breath. His blood pressure in the office is elevated. Manual check is 150/70. Taking medication regularly. He is saying he is taking little more salt than usual. 10/22/23: He is here for follow-up. Blood pressure is much better controlled. Taking amlodipine 5 mg twice a day, carvedilol 6.25 mg twice a day and hydrochlorothiazide 12.5 mg daily. He has abdominal hernia and is seeing surgery for potential treatment. He is saying he gets pain at the site but has never had any obstruction. [facility] Medical History Dyspepsia Hypertension, essential Lipid disorder Abnormal stress test Surgical History S/P cardiac catheterization No pertinent past surgical history Family History Father CVD (cardiovascular disease) Mother Anxiety Maternal Aunt Cancer Social History Household Members: Spouse and Children 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 Cognitive needs: No Hearing needs: No Vision needs: Yes Review of Systems Const Denies chills, Denies fatigue, Denies fever(s), Denies frequent falls, Denies weakness, Denies weight gain and Denies weight loss ENT Denies dizziness Card Denies chest pain, Denies leg edema, Denies lightheadedness, Denies palpitations, Denies dyspnea and Denies dyspnea on exertion Resp Denies cough, Denies dyspnea and Denies dyspnea on exertion GI Denies hematochezia Musc Denies abnormal gait, Denies muscle weakness, Denies numbness, Denies radiating pain into limb and Denies tingling Neuro Denies abnormal gait, Denies dizziness, Denies frequent falls, Denies numbness, Denies tingling and Denies weakness Endo Denies fatigue and Denies palpitations Physical Exam Vital Signs: Last Vital Signs Pulse 69 10/22/23 09:24 BP 120/64 10/22/23 09:24 BMI result Body Mass Index 22.4 GENERAL APPEARANCE: in no acute distress, pleasant. NECK: no carotid bruit, no jugular venous distention. SKIN: no suspicious lesions, warm and dry. HEART: no murmurs, regular rate and rhythm. LUNGS: clear to auscultation bilaterally. ABDOMEN: soft, nontender. EXTREMITIES: no edema. PERIPHERAL PULSES: equal. NEUROLOGIC: No gross deficits, AAO X 3 Assessment & Plan Assessment & Plan (1) Hypertension, essential: Code(s): I10 - Essential (primary) hypertension Category: Medical Plan Pleasant 68-year-old gentleman who is here for follow-up. He has essential hypertension and is on amlodipine, carvedilol and hydrochlorothiazide. Blood pressure is fairly well controlled. He is saying that he had significantly cut back on his coffee intake and since then has noticed that his blood pressure is coming down. In any case he is doing better. No exertional symptoms. He does have sciatica and has been getting cortisone shots and he has received 2 shots already. He also has abdominal hernia and is seeing General surgery with potential treatment. In case he needs to go for surgery he is intermediate risk for perioperative cardiovascular complications. Carvedilol should not be stopped perioperatively. Thank you for allowing me to participate in the care of your patient. Please feel free to contact me if you have any questions. Coding Level of Care Code Est Pt Level 4 (63150) Diagnoses Hypertension, essential I10
== END 2023-10-22 09:38 | disposition home or self-care (01) ==
PROVIDERS: PCP Internal Medicine; Visit Provider Internal Medicine Cardiovascular Disease
DX: I10 Essential (primary) hypertension (principal)
CPT/HCPCS: 99214

== ENCOUNTER → 2023-10-22 09:16 | Outpatient (BNVA) | payer MEDICARE, SELFPAY | PROVIDERS: PCP Internal Medicine; Visit Provider Internal Medicine Cardiovascular Disease | DX: I10 Essential (primary) hypertension (principal); Z79.899 Other long term (current) drug therapy | CPT/HCPCS: 99212 ==

== ENCOUNTER 2023-10-23 09:41 | Outpatient (REF) | payer MEDICARE, SELFPAY ==
--- NOTE | ~2023-10-23 | US_ITS ---
EXAMINATION: US RETROPERITONEAL COMPLETE (RENAL) CLINICAL INFORMATION: Benign prostatic hyperplasia with lower urinary tract symptoms. COMPARISON: Renal ultrasound 08/11/2021. TECHNIQUE: Real-time imaging of the kidneys and bladder. FINDINGS: RIGHT KIDNEY: 11.2 x 4.2 x 5.0 cm (SAG x AP x TRV). The kidney is normal in size, contour, and echogenicity. Renal cortical thickness is normal. No renal calculi or hydronephrosis. 1.8 x 1.5 x 1.5 cm lower pole cyst is seen, no imaging follow-up is recommended. LEFT KIDNEY: 11.4 x 5.2 x 5.5 cm (SAG x AP x TRV). The kidney is normal in size, contour, and echogenicity. Renal cortical thickness is normal. No renal calculi or hydronephrosis. There are multiple cysts, the largest include 6.0 x 4.3 x 4.6 cm upper pole exophytic cyst and 3.2 x 2.9 x 3.0 cm exophytic lower pole cyst, no imaging follow-up is recommended. BLADDER: Well distended and normal. Bilateral ureteral jets are demonstrated. Prevoid bladder volume is 205 mL. Postvoid bladder volume is 17.1 mL. ADDITIONAL FINDINGS: The prostate is enlarged with a volume of 34.8 mL. US/US retroperitoneal comp IMPRESSION: 1. No renal calculi or hydronephrosis. 2. Enlarged prostate. 3. Minimal post void residual.
== END 2023-10-23 09:42 | disposition home or self-care (01) ==
LOC: HO.US 09:41
PROVIDERS: PCP Internal Medicine; Visit Provider Nurse Practitioner Family
DX: N40.1 Benign prostatic hyperplasia with lower urinary tract symptoms (principal); R39.11 Hesitancy of micturition; R39.16 Straining to void
CPT/HCPCS: 76770

== ENCOUNTER 2023-11-19 09:42 | Outpatient (AMB) | payer MEDICARE, SELFPAY ==
--- NOTE | 2023-11-19 09:43 | MHC.OFFVIS ---
Vital Signs 11/19/23 09:51 Height 5 ft 11 in Weight 159 lb BMI 22.2 BP 139/72 Blood Pressure Location Lt brachial Position Sitting Pulse 72 Intake Visit Reasons: Hernia (R) side Intake Note: Patient is seen in office for evaluation and treatment of the right groin. Pt c/o: feels a lump on the right groin, onset couple months, discomfort when sitting at times, denies n/v/d/c, had imaging, no prior surgeries in the area [place] Required: No Accompanied by: Self / Same As Patient Allergies Penicillins Adverse Reaction (Severe, Verified 11/19/23 09:49) Diarrhea HPI Comments Details: Patient presents with a symptomatic right inguinal hernia. He has had this proximally 2 months time. His increasing in size, become more symptomatic. He has no other GI issues or complaints. 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 Chart was reviewed and patient evaluated [facility] Medical History Dyspepsia Hypertension, essential Lipid disorder Abnormal stress test Surgical History S/P cardiac catheterization No pertinent past surgical history Family History Father CVD (cardiovascular disease) Mother Anxiety Maternal Aunt Cancer Social History Household Members: Spouse and Children [facility] Are you a primary patient care specialist to a significant other at home: No Do you presently have visiting nurse or other home services: No Alcohol intake: current Alcohol intake frequency: holidays/special occasions only Patient Tobacco Use Status: Former Tobacco user Tobacco use type: Cigarette Years Smoked: 40 +/- e-Cigarette/Vaping Use: Never Used Second Hand Smoke Exposure: No service: No Current occupational status: 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 Left groin negative. Genitalia within normal limits. Moderately sized reducible right inguinal hernia. Assessment & Plan Assessment & Plan (1) Right inguinal hernia: Code(s): K40.90 - Unilateral inguinal hernia, without obstruction or gangrene, not specified as recurrent Category: Surgical Plan Risks, benefits, alternatives of open right inguinal hernia repair with mesh reviewed the patient and included but not limited to bleeding, infection, recurrence, numbness, pain, scarring the patient was to proceed. All questions answered. Arrangements were made for this. Coding Level of Care Code New Pt Level 5 (60043) Diagnoses Right inguinal hernia K40.90
[2023-11-19 09:51] VITALS: BP 139/72; PULSE 72; BMI 22.2
== END 2023-11-19 09:57 | disposition home or self-care (01) ==
PROVIDERS: PCP Internal Medicine; Visit Provider Surgery
DX: K40.90 Unilateral inguinal hernia, without obstruction or gangrene, not specified as recurrent (principal)
CPT/HCPCS: 99204

== ENCOUNTER → 2023-11-19 09:42 | Outpatient (BNVA) | payer MEDICARE, SELFPAY | PROVIDERS: PCP Internal Medicine; Visit Provider Surgery | DX: K40.90 Unilateral inguinal hernia, without obstruction or gangrene, not specified as recurrent (principal) | CPT/HCPCS: 99202 ==

== ENCOUNTER 2023-11-30 08:54 | Day surgery (SDC) | payer MEDICARE, SELFPAY ==
[2023-11-28 12:23] VITALS: BMI 22.2
--- NOTE | 2023-11-29 10:33 | MHC.SHP ---
Pre-Procedural Eval Section A - 24 Hr Update-Section A only Date of Service: 11/30/23 The patient is an INPATIENT: No Changes since office visit: No Cold of Flu in the past 2 weeks, No New Medical Problems, No Changes in Medication and No Patient answered all questions Section B - Complete if H&P > 30 days Chief Complaint: Unilateral inguinal hernia, without obstruction Allergies: Allergies Allergy/AdvReac Type Severity Reaction Status Date / Time Penicillins AdvReac Severe Diarrhea Verified 11/19/23 09:49 Review of Systems Sugical H&P ROS: Negative: Constitution, Cardiovascular, Respiratory, Neurological, Psychiatric, Hem-Onc, Allergic/Immunologic, Gastrointestinal, Genitourinary, Musculoskeletal, Integumentary, Endocrine and Eyes/Ears/Nose/Throat Exam Surgical H&P Exam: Normal: HEENT, Normal: Heart, Normal: Lungs, Normal: Extremities, Normal: Abdomen, Normal: Skin and Normal: Neurological Plan I have reviewed the history and physical and performed a pertinent physical examination on my patient. No changes have occurred unless specified. Time Spent With Patient Time: Total time managing care of this patient today ____ minutes.
[2023-11-30 09:26] VITALS: BP 129/71; PULSE 58; RESP 16; TEMP 36.8; O2SAT 99; BMI 21.8
[2023-11-30] MEDS: Lactated Ringers 1,000 ML 100 ML IVCONT (10:25)
--- NOTE | 2023-11-30 11:14 | P.CONAN_ITS ---
[facility] Active Problems Active Problems: All Active Problems Right inguinal hernia (Acute) Bulge in groin area (Acute) Right testicular pain (Acute) Right groin pain (Acute) Straining on urination (Acute) Urinary hesitancy due to benign prostatic hyperplasia (Acute) UTI (urinary tract infection) (Acute) Skin growth (Acute) Skin cancer screening (Acute) Prostatic hypertrophy (Acute) Right lower quadrant pain (Acute) Changing nevus (Acute) Screening for prostate cancer (Acute) Sprain of left wrist (Acute) History of kidney stones (Acute) Renal colic on right side (Acute) Mid back pain on right side (Acute) Contact dermatitis (Acute) Paresthesia of foot, bilateral (Acute) Left lumbar radiculitis (Acute) Thrombocytopenia (Acute) Anemia (Acute) Thrombocytopenia (Acute) Immunizations incomplete (Acute) Primary osteoarthritis of left knee (Acute) Tracheobronchitis (Acute) Internal derangement of left knee (Acute) Knee pain, left (Acute) Preoperative cardiovascular examination (Acute) CAD (coronary artery disease) (Acute) Multi-vessel coronary artery stenosis (Acute) Hyperkalemia (Acute) Paraseptal emphysema (Acute) Chest mass (Acute) Chest swelling (Acute) Encounter for general adult medical examination with abnormal findings (Acute) Equivocal stress test (Acute) Abnormal stress test (Acute) S/P cardiac catheterization (Acute) Dyspepsia (Acute) Hypertension, essential (Acute) Lipid disorder (Acute) Past Medical History Medical History (Updated 11/28/23 @ 12:17 by Tonie Perez RN) CAD (coronary artery disease) Back pain Osteoarthritis Anemia Thrombocytopenia BPH (benign prostatic hyperplasia) Renal calculi Dyspepsia Hypertension, essential Lipid disorder Family History Family History Father CVD (cardiovascular disease) Mother Anxiety Maternal Aunt Cancer Family history of problems with anesthesia: No Surgical History Surgical History (Updated 11/30/23 @ 09:25 by Francia Oliveros RN) History of testicular surgery H/O cleft lip repair S/P cardiac catheterization History of Problems with Anesthesia: No Social History Social History Household Members: Spouse and Children Housing: Condominium Are you a primary medicare contact specialist to a significant other at home: No Do you presently have visiting nurse or other home services: No Alcohol intake: current Alcohol intake frequency: holidays/special occasions only Patient Tobacco Use Status: Former Tobacco user Tobacco use type: Cigarette Years Smoked: 30 Smoked in Last 30 Days: No e-Cigarette/Vaping Use: Never Used Second Hand Smoke Exposure: No Use of substances other than those prescribed or required for medical reasons: No Are you DNR?: No Advance Directives: No Advance Directives Information Provided: Yes service: No Current occupational status: 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 Cognitive needs: No Hearing needs: No Vision needs: Yes Meds Allergies Allergy/AdvReac Type Severity Reaction Status Date / Time Penicillins AdvReac Severe Diarrhea Verified 11/30/23 09:17 Active Medications: Current Medications Lactated Ringer's (Lr) 1,000 mls @ 100 mls/hr IVCONT .Q10H ANKITA Last Admin: 11/30/23 10:25 Dose: 100 mls/hr Home Medications ?Medication ?Instructions ?Recorded ?Confirmed ?Last Taken ?Type tamsulosin 0.4 mg capsule 0.4 mg PO BEDTIME 10/22/23 11/30/23 Unknown History Exam Height,Weight and Vital Signs: Height 6 ft Weight 73.028 kg Last Vital Signs Temp 98.3 F 11/30/23 09:26 Pulse 58 11/30/23 09:26 Resp 16 11/30/23 09:26 BP 129/71 11/30/23 09:26 Pulse Ox 99 11/30/23 09:26 O2 Del Method Room Air 11/30/23 09:26 Airway Mallampati Class: III TM Dist: >3cm Neck ROM: Full Denture: Upper and Lower Assessment and Plan Assessment Anesthesia Assessment: Anesthesia Plan Discussed and Chart Reviewed Final Anesthetic Review Family History of Problems with Anesthesia: No History of Problems with Anesthesia: No NPO: Yes ASA Class: II Final Preanesthetic Review: No Changes in Pt Med Stat, Meds/Allgs Chart Reviewed, Consent Obtained/Reviewed and Anes Risks/Benef Reviewed Patient Risk: Low Procedure Risk: Low Anesthetic Plan Anesthetic Plan: GA Disposition: Standard PACU
--- NOTE | 2023-11-30 11:27 | P.HPSUR_ITS ---
Pre-Procedural Eval Section A - 24 Hr Update-Section A only Date of Service: 11/30/23 The patient is an INPATIENT: No Changes since office visit: No Cold of Flu in the past 2 weeks, No New Medical Problems, No Changes in Medication and No Patient answered all questions The patient has been examined within 24 hours of the surgical procedure. The History & Physical has been completed within 30 days and I have reviewed it.: Yes Section B - Complete if H&P > 30 days Chief Complaint: Unilateral inguinal hernia, without obstruction Allergies: Allergies Allergy/AdvReac Type Severity Reaction Status Date / Time Penicillins AdvReac Severe Diarrhea Verified 11/30/23 09:17 Review of Systems Sugical H&P ROS: Negative: Constitution, Cardiovascular, Respiratory, Neurological, Psychiatric, Hem-Onc, Allergic/Immunologic, Gastrointestinal, Genitourinary, Musculoskeletal, Integumentary, Endocrine and Eyes/Ears/Nos e/Throat Exam Surgical H&P Exam: Normal: HEENT, Normal: Heart, Normal: Lungs, Normal: Extremities, Normal: Abdomen, Normal: Skin and Normal: Neurological Plan I have reviewed the history and physical and performed a pertinent physical examination on my patient. No changes have occurred unless specified. Time Spent With Patient Time: Total time managing care of this patient today ____ minutes.
--- NOTE | 2023-11-30 12:21 | W.PM.OPN ---
Operative Note Operative Note Date of Service: 11/30/23 Narrative: Preoperative diagnosis: [] Symptomatic right inguinal hernia Postop diagnosis: [] The same Procedure [] open right inguinal herniorrhaphy with Bard mesh Surgeon: [] George Baker Apprentice: [] Type of Anesthesia: [] LMA Indication for surgery: [] Very large indirect inguinal hernia. No direct hernia demonstrated. Findings: [] Patient brought to the operating room, placed on operative table supine position, after an adequate level of general anesthesia was induced, the right groin was prepped and draped in usual sterile fashion. Using a small right para inguinal incision, this carried down through skin, subcu tissue, April's fascia. External oblique fibers were opened their direction with care to isolate and preserve the ilioinguinal nerve throughout the procedure. Spermatic cord was identified and retracted from the field. No direct hernia was demonstrated. A very large indirect hernia sac was from the cord and reduced. A Bard plug was placed in the indirect defect, and sutured inferiorly to the inguinal ligament, and superiorly to the transversalis fascia using interrupted 0 Ethibond suture. At completion of procedure, mesh was in good position with no tension also covered the entire inguinal floor. Wounds irrigated, secured hemostasis, and closed in the following manner; external oblique fascia was closed using running 2-0 Vicryl suture. April's fascia was reapproximated using interrupted 3-0 Vicryl suture. Interrupted inverted deep dermal 3-0 Vicryl sutures followed by running subcuticular 4-0 Vicryl sutures were placed. Steri-Strips and sterile dressings were applied. Wound was infiltrated 0.5% Marcaine and 1% lidocaine at beginning and and termination of the case. Ipsilateral testicle was intrascrotal at completion. Sponge, needle, and instrument counts reported correct. Patient tolerated the procedure well and emerged from anesthesia stable condition. EBL minimal
[2023-11-30 12:30] VITALS: BP 107/65; PULSE 60; RESP 14; TEMP 36.2; O2SAT 98
[2023-11-30 12:35] VITALS: BP 104/59; PULSE 60; RESP 12; O2SAT 94
[2023-11-30 12:40] VITALS: BP 104/61; PULSE 58; RESP 12; O2SAT 95
[2023-11-30 12:45] VITALS: BP 104/59; PULSE 59; RESP 14; O2SAT 95
[2023-11-30 13:00] VITALS: BP 112/62; PULSE 60; RESP 16; TEMP 36.1; O2SAT 96
== END 2023-11-30 13:39 | disposition home or self-care (01) ==
PROVIDERS: PCP Internal Medicine; Visit Provider Surgery
PROC: (CPT 49505; principal; 2023-11-30 11:00)
DX: K40.90 Unilateral inguinal hernia, without obstruction or gangrene, not specified as recurrent (principal); I10 Essential (primary) hypertension; I25.10 Atherosclerotic heart disease of native coronary artery without angina pectoris; E75.6 Lipid storage disorder, unspecified; R10.13 Epigastric pain; M54.30 Sciatica, unspecified side; Z79.899 Other long term (current) drug therapy; Z88.0 Allergy status to penicillin; Z87.891 Personal history of nicotine dependence
CPT/HCPCS: 49505; C1781; J0736; J1100; J2250; J2405; J2704; J2795; J3010

== ENCOUNTER → 2023-11-30 08:54 | Outpatient (BNV) | payer MEDICARE, SELFPAY | PROVIDERS: PCP Internal Medicine; Visit Provider Surgery | DX: K40.90 Unilateral inguinal hernia, without obstruction or gangrene, not specified as recurrent (principal) | CPT/HCPCS: 49505 ==

== ENCOUNTER 2023-12-12 07:49 | Outpatient (AMB) | payer MEDICARE, SELFPAY ==
--- NOTE | 2023-12-12 07:52 | A.OFFVIS_ITS ---
Intake Visit Reasons: s/p RIH w/mesh Intake Note: Patient here s/p RIH w/mesh. Reports incisions healing well. Patient c/o: no longer taking rx pain meds. Steri strips fell off. SX: 11-30-2023. Medicaid Billing Specialist Required: No Accompanied by: Self / Same As Patient Allergies Penicillins Adverse Reaction (Severe, Verified 12/12/23 07:53) Diarrhea HPI Comments Details: Patient presents for follow-up status post right inguinal hernia repair. He is doing very well. He is tolerating a diet. Having regular bowel habits. He is increasing his activity level. He has minimal incisional discomfort. [facility] Medical History (Updated 11/28/23 @ 12:17 by Tonie Perez RN) CAD (coronary artery disease) Back pain Osteoarthritis Anemia Thrombocytopenia BPH (benign prostatic hyperplasia) Renal calculi Dyspepsia Hypertension, essential Lipid disorder Surgical History (Updated 12/12/23 @ 07:58 by Jerald Vazquez MD) Right inguinal hernia (11/30/23) History of testicular surgery H/O cleft lip repair S/P cardiac catheterization Family History Father CVD (cardiovascular disease) Mother Anxiety Maternal Aunt Cancer Social History Household Members: Spouse and Children Housing: [facility] Are you a primary healthcare administrator to a significant other at home: No Do you presently have visiting nurse or other home services: No Alcohol intake: current Alcohol intake frequency: holidays/special occasions only Comment: COUNTS CORRECT Patient Tobacco Use Status: Former Tobacco user Tobacco use type: Cigarette Years Smoked: 30 e-Cigarette/Vaping Use: Never Used Second Hand Smoke Exposure: No service: No Current occupational status: 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 Wound clean dry and intact healing very well Assessment & Plan Assessment & Plan (1) Status post hernia repair: Code(s): Z98.890 - Other specified postprocedural states; Z87.19 - Personal history of other diseases of the digestive system Category: Medical Plan Patient has been given local instructions including avoiding strenuous activities next few weeks time and will otherwise follow-up p.r.n.. All questions answered. Coding Level of Care Code Global (22354) Diagnoses Status post hernia repair Z98.890; Z87.19
== END 2023-12-12 07:58 | disposition home or self-care (01) ==
PROVIDERS: PCP Internal Medicine; Visit Provider Surgery
DX: Z98.890 Other specified postprocedural states (principal); Z87.19 Personal history of other diseases of the digestive system
CPT/HCPCS: 99024

== ENCOUNTER → 2023-12-12 07:49 | Outpatient (BNVA) | payer MEDICARE, SELFPAY | PROVIDERS: PCP Internal Medicine; Visit Provider Surgery | DX: K40.90 Unilateral inguinal hernia, without obstruction or gangrene, not specified as recurrent (principal); Z48.815 Encounter for surgical aftercare following surgery on the digestive system | CPT/HCPCS: 99212 ==

== ENCOUNTER 2023-12-14 11:13 | Outpatient (REF) | payer MEDICARE, SELFPAY ==
[2023-12-14 14:08] LABS: Prostate Specific Antigen 0.79 ng/mL (<0.05-4.0)
== END 2023-12-14 11:14 | disposition home or self-care (01) ==
LOC: HO.HMGCLDS 11:13
PROVIDERS: PCP Internal Medicine; Visit Provider Nurse Practitioner Family
DX: N40.1 Benign prostatic hyperplasia with lower urinary tract symptoms (principal); R39.11 Hesitancy of micturition; Z12.5 Encounter for screening for malignant neoplasm of prostate
CPT/HCPCS: 36415; 84153

== ENCOUNTER 2023-12-17 10:17 | Outpatient (AMB) | payer MEDICARE, SELFPAY ==
--- NOTE | 2023-12-17 10:24 | MHC.OFFVIS ---
Intake Visit Reasons: 3m/US/PSA Intake Note: Patient presents for follow up visit on: BPH, PSA lab and ultrasound results Imagin10/23/23 PSA: 0.79 Urology Medications: Tamsulosin Blood Thinner: none PVR:77ml's Adoption Manager Required: No Allergies Penicillins Adverse Reaction (Severe, Verified 12/17/23 10:39) Diarrhea Medication List - Last Reviewed 12/17/23 by Ivory Lopez amlodipine 5 mg PO BID atorvastatin 40 mg PO DAILY blood pressure monitor As directed carvedilol 6.25 mg PO BID folic acid 1 mg PO DAILY hydrochlorothiazide 12.5 mg PO DAILY meloxicam 7.5 mg PO BID omeprazole 20 mg PO QAM tamsulosin 0.4 mg PO BEDTIME HPI Comments Details: David is a 68-year-old male patient of Dr. Sutton. He has a past medical history of dyspepsia, hypertension, and lipid disorder. He Ppresents to the office today for follow-up. Of note, patient was seen approximately 4 months ago as a new patient for ongoing lower urinary tract symptoms at which time a retroperitoneal ultrasound and PSA was ordered for further assessment evaluation. These results were reviewed with the patient . Bilateral kidneys with no renal calculi or hydronephrosis. Bilateral cysts are seen that require no imaging follow-up per radiology report. The bladder is well distended and normal. Bilateral jets are demonstrated. Pre void bladder volume is approximately 200 mL. Postvoid bladder volume is approximately 20 mL. The prostate is enlarged with a volume of approximately 35 mL. PSAs are as follows: 06/15 0.8, 12/14 0.8 In discussion with the patient today he reports noting significant improvement in lower urinary tract symptoms he had been experiencing with 0.4 mg of Flomax daily. He currently denies any bothersome urinary issues or concerns. He denies urinary urgency, urinary frequency, incontinence, nocturia, hematuria, dysuria, foul smelling urine, flank pain, fever, and or chills. In office urinalysis results reviewed with the patient today. PVR 77 mL. He otherwise offers no other issues or concerns at this time. [facility] Medical History CAD (coronary artery disease) Back pain Osteoarthritis Anemia Thrombocytopenia BPH (benign prostatic hyperplasia) Renal calculi Dyspepsia Hypertension, essential Lipid disorder Surgical History Right inguinal hernia (11/30/23) History of testicular surgery H/O cleft lip repair S/P cardiac catheterization Family History Father CVD (cardiovascular disease) Mother Anxiety Maternal Aunt Cancer Social History Household Members: Spouse and Children [facility] Are you a primary child care leader to a significant other at home: No Do you presently have visiting nurse or other home services: No Alcohol intake: current Alcohol intake frequency: holidays/special occasions only Comment: COUNTS CORRECT Patient Tobacco Use Status: Former Tobacco user Tobacco use type: Cigarette Years Smoked: 30 e-Cigarette/Vaping Use: Never Used Second Hand Smoke Exposure: No service: No Current occupational status: 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 Cognitive needs: No Hearing needs: No Vision needs: Yes Review of Systems Const Reports no additional complaints Eyes Reports no additional complaints ENT Reports no additional complaints Card Reports as per HPI Resp Reports no additional complaints GI Reports as per HPI Reports as per HPI Musc Reports no additional complaints Neuro Reports no additional complaints Psych Reports no additional complaints Endo Reports no additional complaints Cornelius/Lymph Reports no additional complaints Aller/Immun Reports no additional complaints Physical Exam Const General: cooperative, healthy appearing, comfortable, no acute distress, well developed, alert and awake Nutritional Appearance: average body habitus Orientation/consciousness: patient oriented x3 Limitations: no limitations HEENT Head: Yes normal to inspection, Yes normocephalic and Yes atraumatic Ears: hearing grossly normal bilaterally Eyes General: appearance normal, both eyes and all related structures Neck Neck: Yes normal visual inspection and Yes trachea midline Chest Chest palpation & inspection: normal inspection of the chest Resp Effort & Inspection: normal respiratory effort and able to speak in complete sentences Cardio Rate: regular rate GI Inspection: Yes normal to inspection General: Yes no CVA tenderness Back/Spine/Pelvis Back: no CVA tenderness Skin General skin exam: no rashes or lesions noted Neuro General: patient oriented x3 Extrem General: Yes normal to inspection Psych Appearance: grossly normal and well kempt Mental Status: mental status grossly normal Speech and movement: Normal speech and movement present and Clear speech present Affect: normal affect Attitude: cooperative Thought process: Normal thought process present Thought content: Normal thought content present Insight: Fair insight present (Psych) Judgement: Fair judgement present (Psych) Office Procedures Post Void Residual Post Residual Void Post Void Residual (PVR): 77 [id number] Void Residual by ultrasound Results AMB Urinalysis, Automated UA Leukoctes 0 April/uL Last Edit by [employer] on 12/17/23 10:44 UA Nitrite Last Edit by [employer] on 12/17/23 10:44 UA Urobilinogen 0.2 mg/dL Last Edit by [employer] on 12/17/23 10:44 UA Protein 0 mg/dL Last Edit by [employer] on 12/17/23 10:44 UA pH 6.0 Last Edit by [employer] on 12/17/23 10:44 UA Blood 0 Joel/uL Last Edit by [employer] on 12/17/23 10:44 UA Specific [place] 1.010 Last Edit by [employer] on 12/17/23 10:44 UA Ketone Last Edit by [employer] on 12/17/23 10:44 UA Bilirubin 0 mg/dL Last Edit by [employer] on 12/17/23 10:44 UA Glucose 0 mg/dL Last Edit by [employer] on 12/17/23 10:44 Results Reviewed Results Reviewed: Date of Service: 10/23/23 Procedure(s): US retroperitoneal comp EXAMINATION: US RETROPERITONEAL COMPLETE (RENAL) FINDINGS: RIGHT KIDNEY: 11.2 x 4.2 x 5.0 cm (SAG x AP x TRV). The kidney is normal in size, contour, and echogenicity. Renal cortical thickness is normal. No renal calculi or hydronephrosis. 1.8 x 1.5 x 1.5 cm lower pole cyst is seen, no imaging follow-up is recommended. LEFT KIDNEY: 11.4 x 5.2 x 5.5 cm (SAG x AP x TRV). The kidney is normal in size, contour, and echogenicity. Renal cortical thickness is normal. No renal calculi or hydronephrosis. There are multiple cysts, the largest include 6.0 x 4.3 x 4.6 cm upper pole exophytic cyst and 3.2 x 2.9 x 3.0 cm exophytic lower pole cyst, no imaging follow-up is recommended. BLADDER: Well distended and normal. Bilateral ureteral jets are demonstrated. Prevoid bladder volume is 205 mL. Postvoid bladder volume is 17.1 mL. ADDITIONAL FINDINGS: The prostate is enlarged with a volume of 34.8 mL. IMPRESSION: 1. No renal calculi or hydronephrosis. 2. Enlarged prostate. 3. Minimal post void residual. Assessment & Plan Assessment & Plan (1) Renal cyst: Code(s): N28.1 - Cyst of kidney, acquired Category: Medical (2) Enlarged prostate: Code(s): N40.0 - Benign prostatic hyperplasia without lower urinary tract symptoms Category: Medical (3) Lower urinary tract symptoms: Code(s): R39.9 - Unspecified symptoms and signs involving the genitourinary system Category: Medical Plan In office urinalysis results reviewed with the patient today; as noted above. PVR 77 mL. Continue Flomax as discussed and prescribed. Recent retroperitoneal ultrasound results reviewed with the patient today. Recent PSA results reviewed with the patient today; as noted above. Patient reports significant improvement in lower urinary tract symptoms he had been experiencing with 0.4 mg of Flomax daily; will continue. Discussed at length potential near future in office cystoscopy for further assessment evaluation if symptoms arise. Patient currently denies any bothersome urinary issues or concerns. He reports be happy with current voiding parameters on 0.4 mg of Flomax daily. Follow-up in 6 months with PVR; or sooner with any issues, concerns, and or questions. Orders: Orders AMB Urinalysis Automated Today Z13.9 - Encounter for screening, unspecified AMB Post Void Residual by ultrasound Today N40.1 - Benign prostatic hyperplasia with lower urinary tract symptoms, R39.11 - Hesitancy of micturition Medications: New meloxicam 7.5 mg PO BID Patient Instructions: The patient had an opportunity to ask questions regarding the treatment plan. All questions were answered. Physical exam, labs, and imaging were discussed and reviewed in detail. As well as risks, benefits, and discussion of treatment choices. No major barriers to understanding were identified. The patient expressed understanding and agreement with the above treatment plan. The patient was made aware they should contact our office by phone for worsening of their current condition, the appearance of new symptoms, or with any questions or concerns. Compliance is encouraged with any medications and follow up testing that is ordered. It is a privilege to be allowed the opportunity to participate in? your urological care.? Again, if you have any questions or concerns If you have any questions or concerns please do not hesitate to contact me. The office is [phone]. This note is constructed using voice recognition software. While every effort has been made to ensure accuracy grade tamper errors may have been included. Yours sincerely, CHRISSIE Agee Coding Level of Care Code Est Pt Level 3 (94440) Diagnoses Renal cyst N28.1 Enlarged prostate N40.0 Lower urinary tract symptoms R39.9 CPT Codes Post Residual Void - PVR CPT Code: 39391-Hmwy Void Residual by ultrasound ([id number])
== END 2023-12-17 10:51 | disposition home or self-care (01) ==
PROVIDERS: PCP Internal Medicine; Visit Provider Nurse Practitioner Family
DX: N28.1 Cyst of kidney, acquired (principal); N40.0 Benign prostatic hyperplasia without lower urinary tract symptoms; R39.9 Unspecified symptoms and signs involving the genitourinary system; Z13.9 Encounter for screening, unspecified
CPT/HCPCS: 99213

== ENCOUNTER → 2023-12-17 10:17 | Outpatient (BNVA) | payer MEDICARE, SELFPAY | PROVIDERS: PCP Internal Medicine; Visit Provider Nurse Practitioner Family | DX: N40.0 Benign prostatic hyperplasia without lower urinary tract symptoms (principal); N28.1 Cyst of kidney, acquired; R39.9 Unspecified symptoms and signs involving the genitourinary system | CPT/HCPCS: 51798; 81003; 99212 ==

== ENCOUNTER 2024-03-28 09:46 | Outpatient (REF) | payer MEDICARE, SELFPAY ==
[2024-03-28 13:36] LABS: Influenza A PCR NEGATIVE (Negative); Influenza B PCR NEGATIVE (Negative); Resp Syncy Virus RNA Qual PCR NEGATIVE (Negative); SARS COV2 PCR INHOUSE NEGATIVE (Negative)
== END 2024-03-28 09:47 | disposition home or self-care (01) ==
LOC: HO.LAB 09:46
PROVIDERS: PCP Internal Medicine; Visit Provider Physician Assistant
DX: J06.9 Acute upper respiratory infection, unspecified (principal); H10.9 Unspecified conjunctivitis; H66.001 Acute suppurative otitis media without spontaneous rupture of ear drum, right ear
CPT/HCPCS: 0241U; 99212

== ENCOUNTER 2024-03-28 09:46 | Outpatient (AMB) | payer MEDICARE, SELFPAY ==
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
[2024-03-28 10:03] VITALS: BP 108/72; PULSE 72; TEMP 37.2; O2SAT 95
--- OUTSIDE RECORDS SUMMARY | 2024-04-02 07:09 | XMS_ITS | Patient Health Record ---
Author Organization [facility] Address [address] [place] [address] Care Team Providers Care Blanket Maker Name Role Phone Herman LLAMAS, [facility] Primary Care Provider Tawanda Peralta [phone] ALLERGIES Allergen (clinical drug ingredient) Drug/Non Drug Allergy documented on EMR Reaction Allergy Type Onset Date Status Penicillin Unknown Drug Allergy Active RESULTS Component Value Reference Range Notes Complete Blood Count Auto Di ff Reviewed date:09/17/2023 11:23:00 PM Interpretation: Performing Lab:[facility], [address] [place] [phone] Notes/Report: White Blood Count 10.0 4.8-10.8 X10*3/uL Red Blood Count 4.05 4.60-5.80 X10*6/uL Hemoglobin 12.0 14.0-18.0 g/dl Hematocrit 35.6 42.0-52.0 % Mean Corpuscular Volume 87.9 80.0-98.0 fL Mean Corpuscular Hemoglobin 29.6 27.0-33.0 pg Mean Corpuscular HGB Conc 33.7 31.0-36.0 g/dl Red Cell Distribution Width 13.3 11.0-16.0 % Platelet Count 272 160-400 X10*3/uL Mean Platelet Volume 10.8 9.4-12.4 fL Neutrophils Percent Auto 69.1 45-73 % Imm Gran Pct Auto 0.4 0.0-0.4 % Lymphocytes Percent Auto 17.5 20-40 % Monocytes Percent Auto 9.5 2-11 % Eosinophils Percent Auto 2.6 0-4 % Basophils Percent Auto 0.9 0-2 % NRBC Pct Auto 0.0 0.0-0.2 /100WBC Neutrophils Absolute Auto 6.9 2.0-8.3 x10*3/u L Imm Gran Abs Auto 0.04 0.00-0.03 X10*3/uL Lymphocytes Absolute Auto 1.7 1.2-4.9 X10*3/u L Monocytes Absolute Auto 1.0 0.1-1.2 X10*3/uL Eosinophils Absolute Auto 0.3 0.0-0.4 X10*3/u L Basophils Absolute Auto 0.1 0.0-0.2 X10*3/uL NRBC Abs Auto 0.000 0.0-0.012 X10*3/uL OBSX3 Reviewed date:06/27/2023 12:11:23 AM Interpretation: Performing Lab:[facility], [address] [place] [phone] Notes/Report: OBS1 NEGATIVE NEGATIVE OBS Date 1 06/22/2023 OBS2 NEGATIVE NEGATIVE OBS Date 2 06/24/2023 OBS3 NEGATIVE NEGATIVE OBS Date 3 06/26/2023 IRON PROFILE Reviewed date:06/26/2023 01:51:51 PM Interpretation: Performing Lab:[facility], [address] [place] [phone] Notes/Report: Iron 66 45-160 mcg/dL Total Iron Binding Capacity 275 228-428 mcg/d L Percent Iron Saturation 24 15-50 % Unsaturated Iron Binding 209 Ferritin Reviewed date:06/26/2023 01:52:01 PM Interpretation: Performing Lab:[facility], [address] [place] [phone] Notes/Report: Ferritin 36 20-250 ng/mL REASON FOR REFERRAL No Information MEDICATIONS Medication SIG (Take, Route, Frequency, Duration) Notes Start Date End Date Status Carvedilol 6.25 MG TAKE 1 TABLET BY MOUTH TWICE DAILY Oral for 90 I10,Unavailab le Active amLODIPine Besylate 5 MG Oral for 90 Active hydroCHLOROthiazide 12.5 MG Oral for 90 Active Folic Acid 1 MG Oral for 90 Ac tive Atorvastatin Calcium 40 MG TAKE 1 TABLET BY MOUTH DAILY Oral for 90 Active Omeprazole 20 MG Oral for 90 A ctive SOCIAL HISTORY Tobacco Use: Social History Observation Description Date Details (start date - stop date) Former Smoker NA - NA Sex Assigned At : Social History Observation Description Sex Assigned At Unknown Tobacco Use/Smoking Question Answer Notes Patient is a former smoker Alcohol Screen Question Answer Notes Did you have a drink contain ing alcohol in the past year? Yes How often did you have a dri nk containing alcohol in the past year? Never (0 point) How many drinks did you have on a typical day when you were drinking in the past year? 1 or 2 drinks (0 point) How often did you have 6 or more drinks on one occasion in the past year? Never (0 point) Points 0 Interpretation Negative PROBLEMS Problem Type ICD Code Onset Dates Problem Status W/U Status Risk SNOMED Code Notes Problem Gastroesophageal reflux disease, unspecified whether esophagitis present (K21.9) Active confirmed 410846799 Problem Anemia, unspecified type (D64.9) Active confirmed [id number] VITAL SIGNS Temperature 98.4 degrees Fahrenheit 04/10/2023 Blood pressure diastolic 00 mm Hg 04/10/2023 Height 6 ft in 04/10/2023 Blood pressure systolic 00 mm Hg 04/10/2023 Weight 161 lbs 04/10/2023 BMI 21.83 kg/m2 04/10/2023 Encounters Encounter Location Date Provider Diagnosis [facility] Outpatient [address] [place], [place] [id number] 07/11/2023 Tawanda Starr [facility] Outpatient [address] [place], [place] [id number] 09/21/2023 Tawanda Starr [facility] [address] [place] [phone] 04/10/2023 Tawanda Starr Gastroesophageal ref lux disease, unspecified whether esophagitis present K21.9 and Anemia, unspecified type D64.9 [facility] [address] [place] [phone] 06/02/2023 Tawanda Starr [facility] [address] [place] [phone] 06/22/2023 Tawanda Starr [facility] [address] [place] [phone] 07/20/2023 Tawanda Starr [facility] [address] [place] [phone] 09/14/2023 Tawanda Starr ASSESSMENTS Encounter Date Diagnosis Assessment Notes Treatment Notes Treatment Clinical Notes 04/10/2023 Anemia, unspecified type (ICD-10 - D64.9) 04/10/2023 Gastroesophageal ref lux disease, unspecified whether esophagitis present (ICD-10 - K21.9) PLAN OF TREATMENT Pending Test Test Name Order Date Hemoccult Cards (Non-Screening) 04/10/20 23 IRON + IBC (FE) 04/10/2023 CBC w DIFF 04/10/2023 Ferritin 04/10/2023 Future Test Test Name Order Date UPPER GI ENDOSCOPY 04/10/2023 Insurance Providers Payer Name Payer Address Payer Phone Subscriber Number Group Number Insured Name Patient Relationship to Insured Coverage Start Date Coverage End Date [facility] Medicare Advantage Plan [address] [address] [place] [address] [id number] ARMINDA VARGAS Self - patient is the insured MEDICAL (GENERAL) HISTORY Medical History History ICD Code Hypertension [id number] Dr. Mu tate. He has had normal iron studies in the past. He had a borderline low B12 level once but with negative intrinsic factor antibodies. His hemoglobin has been stable in the range of 12-12.6 since 2020. Emphysema- mild History of kidney stones He had a negative colonoscop y in April of [address] Gibson in [place] and he reports negative colonoscopy about 10 years prior to that as well Negative cardiac cath in 2020-sees Dr. Faustino diaz GERD Denies [place],DM,CVA,renal disease Surgical History Surgery Date(Month/Year) TEETH REMOVED WITH IMPLANTS 05/2022 Cleft lip and palate
--- OUTSIDE RECORDS SUMMARY | 2024-04-02 07:09 | XMS_ITS ---
Author Organization [facility] Address [address] [place] [address] Care Team Providers Care Fluorescent Lighting Model Maker Name Role Phone Herman LLAMAS, [facility] Primary Care Provider Tawanda Peralta [phone] REASON FOR VISIT COLOGUARD IS NEGATIVE Encounters Encounter Location Date Provider Diagnosis [facility] [address] [place] [address] 07/20/2023 Tawanda Starr PLAN OF TREATMENT No Information
--- OUTSIDE RECORDS SUMMARY | 2024-04-02 07:09 | XMS_ITS ---
Author Organization [facility] Address [address] [place] [phone] Care Team Providers Care Organ Recovery Coordinator Name Role Phone Herman LLAMAS, [facility] Primary Care Provider Tawanda Peralta [phone] REASON FOR VISIT egd Encounters Encounter Location Date Provider Diagnosis [facility] [address] [place] [address] 09/14/2023 Tawanda Starr PLAN OF TREATMENT No Information
--- OUTSIDE RECORDS SUMMARY | 2024-04-02 07:09 | XMS_ITS ---
Author Organization [facility] Address [address] [place] [phone] Care Team Providers Care Rental Salesperson Name Role Phone Herman LLAMAS, [facility] Primary Care Provider Tawanda Peralta [phone] REASON FOR VISIT gerd Encounters Encounter Location Date Provider Diagnosis [facility] Outpatient [address] [place], [place] [id number] 09/21/2023 Tawanda Starr PLAN OF TREATMENT No Information
== END 2024-03-28 10:52 | disposition home or self-care (01) ==
PROVIDERS: PCP Internal Medicine; Visit Provider Physician Assistant
DX: J06.9 Acute upper respiratory infection, unspecified (principal); H10.9 Unspecified conjunctivitis; H66.001 Acute suppurative otitis media without spontaneous rupture of ear drum, right ear

== ENCOUNTER 2024-04-21 10:00 | Outpatient (RCR) | payer MEDICARE, SELFPAY | END 2024-05-09 07:36 | disposition home or self-care (01) | LOC: HO.PTCHIC 10:00 | PROVIDERS: PCP Internal Medicine; Visit Provider Student in an Organized Health Care Education/Training Program | DX: M48.062 Spinal stenosis, lumbar region with neurogenic claudication (principal) | CPT/HCPCS: 97110; 97112; 97162 ==

== ENCOUNTER 2024-04-28 10:25 | Outpatient (AMB) | payer MEDICARE, SELFPAY ==
[2024-04-28 10:28] VITALS: BP 110/70; PULSE 70; BMI 21.9
--- NOTE | 2024-04-28 10:28 | A.OFFVIS_ITS ---
Vital Signs 04/28/24 10:28 Height 5 ft 11 in Weight 156 lb 15.506 oz BMI 21.9 BP 110/70 Blood Pressure Location Lt brachial Position Sitting Pulse 70 Pulse Source Pulse Oximeter Intake Visit Reasons: 6 mth f/up Intake Note: 6 mthh f/up Fund Accounting Manager Required: No Accompanied by: Self / Same As Patient Allergies Penicillins Adverse Reaction (Severe, Verified 03/28/24 10:03) Diarrhea Medication List - Last Reconciled 04/28/24 by Lee Lepe MD amlodipine 5 mg PO BID atorvastatin 40 mg PO DAILY blood pressure monitor As directed carvedilol 6.25 mg PO BID erythromycin 0.5 inches ophthalmic (eye) QID folic acid 1 mg PO DAILY hydrochlorothiazide 12.5 mg PO DAILY omeprazole 20 mg PO QAM tamsulosin (Flomax) 0.4 mg PO BEDTIME 90 days HPI Comments Details: 69-year-old gentleman here for follow-up. He has h/o high blood pressure. Previously had facial flushing which was due to cyanocobalamin and after stopping it his facial flushing is improved. Doing well without any chest pain or shortness of breath. No new complaints. 05/02/23: He is here for follow-up today. Denying any symptoms. No chest discomfort shortness of breath. His blood pressure in the office is elevated. Manual check is 150/70. Taking medication regularly. He is saying he is taking little more salt than usual. 10/22/23: He is here for follow-up. Blood pressure is much better controlled. Taking amlodipine 5 mg twice a day, carvedilol 6.25 mg twice a day and hydrochlorothiazide 12.5 mg daily. He has abdominal hernia and is seeing surgery for potential treatment. He is saying he gets pain at the site but has never had any obstruction. 04/28/2024: He is here for follow-up. Blood pressure is well controlled. He is complaining of trace edema or his shins when he removes his socks. This is something he started noticing over the last month. No other change in symptoms including no chest pain, shortness of breath, orthopnea. Blood pressure is well controlled on amlodipine 5 mg twice a day, carvedilol 6.25 mg twice a day, hydrochlorothiazide 12.5 mg daily. COUNT INCLUDES THE [facility] Medical History CAD (coronary artery disease) Back pain Osteoarthritis Anemia Thrombocytopenia BPH (benign prostatic hyperplasia) Renal calculi Dyspepsia Hypertension, essential Lipid disorder Surgical History Right inguinal hernia (11/30/23) History of testicular surgery H/O cleft lip repair S/P cardiac catheterization Family History Father CVD (cardiovascular disease) Mother Anxiety Maternal Aunt Cancer Social History Household Members: Spouse and Children [facility] Are you a primary acute care nurse practitioner to a significant other at home: No Do you presently have visiting nurse or other home services: No Alcohol intake: current Alcohol intake frequency: holidays/special occasions only Comment: COUNTS CORRECT Patient Tobacco Use Status: Former Tobacco user Tobacco use type: Cigarette Years Smoked: 30 e-Cigarette/Vaping Use: Never Used Second Hand Smoke Exposure: No service: No Current occupational status: 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 Cognitive needs: No Hearing needs: No Vision needs: Yes Review of Systems Const Denies chills, Denies fatigue, Denies fever(s), Denies frequent falls, Denies weakness, Denies weight gain and Denies weight loss ENT Denies dizziness Card Denies chest pain, Denies leg edema, Denies lightheadedness, Denies palpitations, Denies dyspnea and Denies dyspnea on exertion Resp Denies cough, Denies dyspnea and Denies dyspnea on exertion GI Denies hematochezia Musc Denies abnormal gait, Denies muscle weakness, Denies numbness, Denies radiating pain into limb and Denies tingling Neuro Denies abnormal gait, Denies dizziness, Denies frequent falls, Denies numbness, Denies tingling and Denies weakness Endo Denies fatigue and Denies palpitations Physical Exam Vital Signs: Last Vital Signs Pulse 70 04/28/24 10:28 BP 110/70 04/28/24 10:28 BMI result Body Mass Index 21.9 GENERAL APPEARANCE: in no acute distress, pleasant. NECK: no carotid bruit, no jugular venous distention. SKIN: no suspicious lesions, warm and dry. HEART: no murmurs, regular rate and rhythm. LUNGS: clear to auscultation bilaterally. ABDOMEN: soft, nontender. EXTREMITIES: Trace edema. PERIPHERAL PULSES: equal. NEUROLOGIC: No gross deficits, AAO X 3 Assessment & Plan Assessment & Plan (1) Hypertension, essential: Code(s): I10 - Essential (primary) hypertension Category: Medical (2) Peripheral edema: Code(s): R60.0 - Localized edema Category: Medical Plan [age] gentleman who is here for follow-up. Blood pressure is well controlled on multiple medicines at this point. Tolerating medicines well and has no chest discomfort shortness of breath. Trace peripheral edema likely related to amlodipine use. No signs symptoms of h eart failure. I have advised him to monitor for now. During the holidays salt intake/alcohol intake can change and can lead to similar issues too. We will see him back in few months. I have advised him that if the swelling worsens he should get in touch with us. Thank you for allowing me to participate in the care of your patient. Please feel free to contact me if you have any questions. Coding Level of Care Code Est Pt Level 4 (17166) Diagnoses Hypertension, essential I10 Peripheral edema R60.0
--- OUTSIDE RECORDS SUMMARY | 2024-04-28 11:25 | XMS_ITS ---
Author Organization [facility] Address [address] [place] [address] Care Team Providers Care Developer Advisor Name Role Phone Herman LLAMAS, [facility] Primary Care Provider Tawanda Peralta [phone] REASON FOR VISIT gerd Encounters Encounter Location Date Provider Diagnosis [facility] Outpatient [address] [place], [place] [id number] 09/21/2023 Tawanda Starr PLAN OF TREATMENT No Information
--- OUTSIDE RECORDS SUMMARY | 2024-04-28 11:26 | XMS_ITS ---
Author Organization [facility] Address [address] [place] [address] Care Team Providers Care Electronic Data Processing Auditor Name Role Phone Herman LLAMAS, [facility] Primary Care Provider Tawanda Peralta [phone] REASON FOR VISIT egd Encounters Encounter Location Date Provider Diagnosis [facility] [address] [place] [address] 09/14/2023 Tawanda Starr PLAN OF TREATMENT No Information
--- OUTSIDE RECORDS SUMMARY | 2024-04-28 11:26 | XMS_ITS | Patient Health Record ---
Author Organization [facility] Address [address] [place] [address] Care Team Providers Care Er Tech Name Role Phone Herman LLAMAS, [facility] Primary Care Provider Tawanda Peralta [phone] ALLERGIES Allergen (clinical drug ingredient) Drug/Non Drug Allergy documented on EMR Reaction Allergy Type Onset Date Status Penicillin Unknown Drug Allergy Active RESULTS Component Value Reference Range Notes Complete Blood Count Auto Di ff Reviewed date:09/17/2023 11:23:00 PM Interpretation: Performing Lab:[facility], [address] [place] [phone] Notes/Report: White Blood Count 10.0 4.8-10.8 X10*3/uL [...] OBSX3 Reviewed date:06/27/2023 12:11:23 AM Interpretation: Performing Lab:[facility], [address] [place] [phone] Notes/Report: OBS1 NEGATIVE NEGATIVE OBS Date 1 06/22/2023 OBS2 NEGATIVE NEGATIVE OBS Date 2 06/24/2023 OBS3 NEGATIVE NEGATIVE OBS Date 3 06/26/2023 IRON PROFILE Reviewed date:06/26/2023 01:51:51 PM Interpretation: Performing Lab:[facility], [address] [place] [phone] Notes/Report: Iron 66 45-160 mcg/dL Total Iron Binding Capacity 275 228-428 mcg/d L Percent Iron Saturation 24 15-50 % Unsaturated Iron Binding 209 Ferritin Reviewed date:06/26/2023 01:52:01 PM Interpretation: Performing Lab:[facility], [address] [place] [phone] Notes/Report: Ferritin 36 20-250 ng/mL REASON FOR [...] unspecified whether esophagitis present (K21.9) Active confirmed 714205230 Problem Anemia, unspecified type (D64.9) Active confirmed [id number] Encounters Encounter Location Date Provider Diagnosis [facility] Outpatient [address] [place], [place] [id number] 07/11/2023 Tawanda Starr [facility] Outpatient [address] [place], [place] [id number] 09/21/2023 Tawanda Starr [facility] [address] [place] [phone] 06/02/2023 Tawanda Starr [facility] [address] [place] [phone] 06/22/2023 Tawanda Starr [facility] [address] [place] [phone] 07/20/2023 Tawanda Starr [facility] [address] [place] [phone] 09/14/2023 Tawanda Starr PLAN OF TREATMENT Pending Test Test Name Order Date Hemoccult Cards (Non-Screening) 04/10/20 23 IRON + IBC (FE) 04/10/2023 CBC w DIFF 04/10/2023 Ferritin 04/10/2023 Future Test Test Name Order Date UPPER GI ENDOSCOPY 04/10/2023 Insurance Providers Payer Name Payer Address Payer Phone Subscriber Number Group Number Insured Name Patient Relationship to Insured Coverage Start Date Coverage End Date [employer] Medicare Advantage Plan [address] [address] [place] [address] [id number] ARMINDA VARGAS Self - patient is the insured MEDICAL (GENERAL) HISTORY Medical History History ICD Code Hypertension [id number]-[id number] Dr. Mu tate. He has had normal iron studies in the past. He had a borderline low B12 level once but with negative intrinsic factor antibodies. His hemoglobin has been stable in the range of 12-12.6 since 2020. Emphysema- mild History of kidney stones He had a negative colonoscop y in April of [address] Gibson in [place] and he reports negative colonoscopy about 10 years prior to that as well Negative cardiac cath in 2020-sees Dr. Faustino diaz GERD Denies [place],DM,CVA,renal disease Surgical History Surgery Date(Month/Year) TEETH REMOVED WITH IMPLANTS 05/2022 Cleft lip and palate
--- OUTSIDE RECORDS SUMMARY | 2024-04-28 11:26 | XMS_ITS ---
Author Organization [facility] Address [address] [place] [address] Care Team Providers Care Jewel Oliving Machine Operator Name Role Phone Herman LLAMAS, [facility] Primary Care Provider Tawanda Peralta [phone] REASON FOR VISIT COLOGUARD IS NEGATIVE Encounters Encounter Location Date Provider Diagnosis [facility] [address] [place] [address] 07/20/2023 Tawanda Starr PLAN OF TREATMENT No Information
== END 2024-04-28 10:47 | disposition home or self-care (01) ==
PROVIDERS: PCP Internal Medicine; Visit Provider Internal Medicine Cardiovascular Disease
DX: I10 Essential (primary) hypertension (principal); R60.0 Localized edema
CPT/HCPCS: 99214

== ENCOUNTER → 2024-04-28 10:25 | Outpatient (BNVA) | payer MEDICARE, SELFPAY | PROVIDERS: PCP Internal Medicine; Visit Provider Internal Medicine Cardiovascular Disease | DX: I10 Essential (primary) hypertension (principal); R60.0 Localized edema | CPT/HCPCS: 99212 ==

== ENCOUNTER 2024-06-10 08:46 | Outpatient (AMB) | payer MEDICARE, SELFPAY ==
--- NOTE | 2024-06-10 08:48 | A.OFFPC_ITS ---
Vital Signs 06/10/24 08:51 Height 5 ft 11 in Weight 160 lb 2 oz BMI 22.3 BP 112/70 Blood Pressure Location Lt brachial Position Sitting Pulse 68 Pulse Source Pulse Oximeter Pulse Oximetry (%) 97 Oxygen Delivery Method Room Air Intake Visit Reasons: Annual PE Allergies Penicillins Adverse Reaction (Severe, Verified 06/10/24 08:54) Diarrhea Medication List - Last Reconciled 06/10/24 by Lani Sutton MD amlodipine 5 mg PO BID atorvastatin 40 mg PO DAILY blood pressure monitor As directed carvedilol 6.25 mg PO BID folic acid 1 mg PO DAILY hydrochlorothiazide 12.5 mg PO DAILY omeprazole 20 mg PO QAM tamsulosin (Flomax) 0.4 mg PO BEDTIME 90 days Tobacco use date assessed: 06/10/24 Fall risk assessment: No Falls in past year Last assessed Fall Risk: 06/10/24 Dental Screening Dental Screen Date: 06/10/24 Did you have a dental visit in the last 12 months?: Yes Did you have a dental problem in the last 6 months where you did not have access to dental care?: No Was dental information given to patient?: Patient has dentist HPI Annual PE HPI Details Patient is 69-year-old gentlemen Who is established with Cardiology Dr. Lepe And Hematology for chronic anemia Last colonoscopy was in 2018 Which showed diverticulosis but no internal hemorrhoids Referral placed to gastroenterology for repeat colonoscopy as per recommendation by Hematology Patient is also in need of Dermatology appointment for skin cancer screening Labs done recently reviewed, continued to have chronic anemia hemoglobin in 11 range Tdap and pneumonia 20 vaccine given today Patient is to get shingles vaccine from pharmacy Only medication from PCP office is omeprazole Follow-up 1 year physical exam [facility] Medical History CAD (coronary artery disease) Back pain Osteoarthritis Anemia Thrombocytopenia BPH (benign prostatic hyperplasia) Renal calculi Dyspepsia Hypertension, essential Lipid disorder Surgical History Right inguinal hernia (11/30/23) History of testicular surgery H/O cleft lip repair S/P cardiac catheterization Family History Father CVD (cardiovascular disease) Mother Anxiety Maternal Aunt Cancer Social History Household Members: Spouse and Children Housing: Condominium Are you a primary health care analyst to a significant other at home: No Do you presently have visiting nurse or other home services: No Alcohol intake: current Alcohol intake frequency: holidays/special occasions only Comment: COUNTS CORRECT Patient Tobacco Use Status: Former Tobacco user Tobacco use type: Cigarette Years Smoked: 30 e-Cigarette/Vaping Use: Never Used Second Hand Smoke Exposure: No service: No Current occupational status: 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 1. Little interest or pleasure in doing things: not at all 2. Feeling down, depressed, or hopeless: not at all 3. Trouble falling or staying asleep, or sleeping too much: not at all 4. Feeling tired or having little energy: not at all 5. Poor appetite or overeating: not at all 6. Feeling bad about yourself - or that you are a failure or have let yourself or your family down: not at all 7. Trouble concentrating on things, such as reading the newspaper or watching television: not at all 8. Moving or speaking so slowly that other people could have noticed. Or the opposite - being so fidgety or restless that you have been moving around a lot more than usual: not at all 9. Thoughts that you would be better off or of hurting yourself in some way: not at all Total score: 0 Depression Screening Interpretation: Negative Depression Screening Done: Yes 09601 - PHQ-9 Billing: Yes Source: Developed by Drs. Tawanda Nelson, Sharon Wu, Manan Bautista and colleagues, with an educational martha from [employer]. Thrive Questionnaire Date Thrive assessed: 06/10/24 I am a: Patient What is your living situation today?: I have a steady place to live Within the past 12 months, did the food you bought not last and you didn't have the money to get more?: Never true Within the past 12 months, did you worry whether your food would run out before you got money to buy more?: Never true Do you have trouble paying for medicines?: No Do you have trouble getting transportation to medical appointments?: No Do you have trouble paying your heating and electricity bill?: No Do you have trouble taking care of your child, family member or friend?: No Do you have trouble with day-to-day activities such as bathing, preparing meals, shopping, managing finances, etc.?: No Are you currently unemployed and looking for a job?: No Are you interested in more education?: No Please select the resources that you would like help with: None Currently or been in a relationship where the following occur: I choose not to answer THRIVE Score: 0 AUDIT C Alcohol Use Questionnaire (AUDIT-C) 1. How often do you have a drink containing alcohol?: Monthly or less 2. How many drinks containing alcohol do you have on a typical day when you are drinking?: 1 or 2 3. How often do you have six or more drinks on one occasion?: Less than monthly Total Score: 2 Score Reviewed/Action Taken: Yes KIKE-7 AMB Questionnaire KIKE-7 Date KIKE - 7 assessed: 06/10/24 Feeling nervous, anxious, or on edge: 0 = Not at all Not being able to stop or control worryin = Not at all Worrying too much about different things: 0 = Not at all Trouble relaxin = Not at all Being so restless that it is hard to sit still: 0 = Not at all Becoming easily annoyed or irritable: 0 = Not at all Feeling afraid as if something awful might happen: 0 = Not at all Total KIKE-7 score (0-4 normal; 5-9 mild; 10-14 moderate; 15-21 severe): 0 Source: Developed by Drs. Tawanda Nelson, Sharon Wu, Manan Bautista and colleagues, with an educational martha from [employer]. KIKE-7 Assessment Billing KIKE-7 Assessment Tool: KIKE-7 Assessment 29326 Review of Systems Const Denies chills, Denies fever(s) and Denies headache(s) Eyes Denies blurry vision ENT Denies headache(s), Denies nasal discharge, Denies nasal obstruction, Denies odynophagia and Denies sinus pain Card Denies chest pain at rest and Denies chest pain with activity Resp Denies cough and Denies hemoptysis GI Denies diarrhea, Denies odynophagia, Denies vomiting and Denies hematemesis Reports as per HPI Musc Denies abnormal gait Skin/Breast Reports as per HPI Neuro Denies Neuro-related abnormal movements, Denies Abnormal speech present, Denies abnormal gait, Denies headache(s) and Denies Sensory deficit (Neuro) Psych Denies mood swings and Denies paranoia Endo Reports as per HPI Cornelius/Lymph Reports as per HPI Aller/Immun Reports as per HPI Physical exam (Primary Care) Vital Signs: Last Vital Signs Pulse 68 06/10/24 08:51 BP 112/70 06/10/24 08:51 Pulse Ox 97 06/10/24 08:51 Oxygen Delivery Method Room Air 06/10/24 08:51 BMI result Body Mass Index 22.3 Tobacco/Smoking Status: Tobacco use Status Tobacco use date assessed 06/10/24 06/10/24 08:54 Patient Tobacco Use Status Former Tobacco user 06/10/24 08:54 Tobacco use type Cigarette 06/10/24 08:54 e-Cigarette/Vaping Use Never Used 06/10/24 08:54 PHQ-9: PHQ-9 Score PHQ-9: Total score 0 06/10/24 09:35 Depression Screening Interpretation: Negative Thrive Assessment: Date of Thrive Assessment Date Thrive assessed 06/10/24 06/10/24 08:54 Currently or been in a relationship where the following occur: I choose not to answer Const General: cooperative, comfortable and no acute distress Orientation/consciousness: patient oriented x3 HENMT Head: Yes normocephalic and Yes atraumatic Eyes General: appearance normal, both eyes and all related structures Pupils: Equal, round and reactive pupils present EOM: EOMs intact bilaterally Neck Neck: Yes supple and No lymphadenopathy Thyroid: Thyroid normal Lymphatic: no lymphadenopathy noted Resp Effort & Inspection: normal respiratory effort and able to speak in complete sentences Auscultation: clear to auscultation bilaterally Cardio Heart sounds: S1 normal heart sound present and S2 normal heart sound present GI Palpation (GI): Soft to palpation and nontender Auscultation: normal bowel sounds General: Yes no CVA tenderness Back/Spine/Pelvis Back: no CVA tenderness Skin General skin exam: elasticity normal and turgor normal Neuro General: patient oriented x3 and gait normal Cranial nerves: Yes Equal, round and reactive pupils present Speech: No Abnormal speech present Sensory Exam: No Sensory deficit (Neuro) Coordination: tandem gait normal and Romberg test negative Extrem General: Yes normal exam except as noted and No edema Immunizations pneumoc 20-anselmo conj-dip cr(PF) 0.5 mL IM syringe Performing Provider: Lani Sutton MD Performing Location: [facility] Adult [facility] Administered by: MURTAZA Triana on 06/10/24 09:35 Dose Route Admin Location Dispensed Lot Number Expiration Date [facility] Desktop Support Technician 0.5 mL IM Right Deltoid 0.5 mL [id number] 08/20/25 [id number] [employer] - Eye Tracking VIS Given Date VIS Provided VIS Publication Date 06/10/24 Single Vaccine 21 Eligibility Eligibility Date Funding Source Not VFC Eligible 06/10/24 Private Boostrix Tdap 2.5 Lf unit-8 mcg-5 Lf/0.5 mL intramuscular syringe Performing Provider: Lani Sutton MD Performing Location: [facility] Administered by: MURTAZA Triana on 06/10/24 09:35 Dose Route Admin Location Dispensed Lot Number Expiration Date [facility] Desktop Support Technician 0.5 mL IM Left Deltoid 0.5 mL [id number] 07/09/26 [id number] [employer] VIS Given Date VIS Provided VIS Publication Date 06/10/24 Single Vaccine 20 Eligibility Eligibility Date Funding Source Not VFC Eligible 06/10/24 Private Coding Level of Care Code Est Pt Level 3 (02759) Est Pt Prev Care >65y(25473) Diagnoses Encounter for general adult medical examination with abnormal findings Z00.01 Status post hernia repair Z98.890; Z87.19 Prostatic hypertrophy N40.0 Thrombocytopenia D69.6 Anemia in other chronic diseases classified elsewhere D63.8 Anemia type: other cause Other causes of anemia: chronic disease, other Coronary artery disease involving [place] coronary artery of [place] heart without angina pectoris I25.10 Associated angina: without angina Coronary Disease-Associated Artery/Lesion type: [place] artery [place] vs. transplanted heart: [place] heart Hypertension, essential I10 Lipid disorder E78.9 Dyspepsia R10.13 Colon cancer screening Z12.11 Additional Codes KIKE-7 Assessment Billing - KIKE-7 Assessment Tool: KIKE-7 Assessment 76142 ([id number]) PHQ-9 - 56353 - PHQ-9 Billing: Yes ([id number]) Assessment & Plan Assessment & Plan (1) Encounter for general adult medical examination with abnormal findings: Code(s): Z00.01 - Encounter for general adult medical examination with abnormal findings Category: Medical (2) Status post hernia repair: Code(s): Z98.890 - Other specified postprocedural states; Z87.19 - Personal history of other diseases of the digestive system Category: Surgical (3) Prostatic hypertrophy: Code(s): N40.0 - Benign prostatic hyperplasia without lower urinary tract symptoms Category: Medical (4) Thrombocytopenia: Code(s): D69.6 - Thrombocytopenia, unspecified Category: Medical (5) Anemia: Code(s): D64.9 - Anemia, unspecified Category: Medical Qualifiers: Anemia type: other cause Other causes of anemia: chronic disease, other Qualified Code(s): D63.8 - Anemia in other chronic diseases classified elsewhere (6) CAD (coronary artery disease): Comment: Nonobstructive on catheterization in 2020 Code(s): I25.10 - Atherosclerotic heart disease of [place] coronary artery without angina pectoris Category: Medical Qualifiers: Associated angina: without angina Coronary Disease-Associated Artery/Lesion type: [place] artery [place] vs. transplanted heart: [place] heart Qualified Code(s): I25.10 - Atherosclerotic heart disease of [place] coronary artery without angina pectoris (7) Hypertension, essential: Code(s): I10 - Essential (primary) hypertension Category: Medical (8) Lipid disorder: Code(s): E78.9 - Disorder of lipoprotein metabolism, unspecified Category: Medical (9) Dyspepsia: Code(s): R10.13 - Epigastric pain Category: Medical (10) Colon cancer screening: Code(s): Z12.11 - Encounter for screening for malignant neoplasm of colon Category: Medical Plan Patient is 69-year-old gentlemen Who is established with Cardiology Dr. Lepe And Hematology for chronic anemia Last colonoscopy was in 2018 Which showed diverticulosis but no internal hemorrhoids Referral placed to gastroenterology for repeat colonoscopy as per recommendation by Hematology Patient is also in need of Dermatology appointment for skin cancer screening Labs done recently reviewed, continued to have chronic anemia hemoglobin in 11 range Tdap and pneumonia 20 vaccine given today Patient is to get shingles vaccine from pharmacy Only medication from PCP office is omeprazole Follow-up 1 year physical exam Patient had final stenosis laparoscopic surgery from [facility] to symptoms of left leg radiation And is doing very well He also had left inguinal hernia surgery and is doing well Orders: Orders Pneumococcal 20 Immunization Today Z23 - Encounter for immunization TDaP Immunization Today Z23 - Encounter for immunization Referrals Gastroenterology Referral Z12.11 - Encounter for screening for malignant neoplasm of colon Dermatology Referral Z12.83 - Encounter for screening for malignant neoplasm of skin
[2024-06-10 08:51] VITALS: BP 112/70; PULSE 68; O2SAT 97; BMI 22.3
--- OUTSIDE RECORDS SUMMARY | 2024-06-10 09:16 | XMS_ITS ---
Author Organization [facility] Address [address] [place] [phone] Care Team Providers Care Analytical Research Chemist Name Role Phone Herman LLAMAS, [facility] Primary Care Provider Tawanda Peralta [phone] REASON FOR VISIT gerd Encounters Encounter Location Date Provider Diagnosis [facility] [address] [place], [place] [id number] 09/21/2023 Tawanda Starr PLAN OF TREATMENT No Information
--- OUTSIDE RECORDS SUMMARY | 2024-06-10 09:16 | XMS_ITS ---
Author Organization [facility] Address [address] [place] [address] Care Team Providers Care Slunk Skin Curer Name Role Phone Herman LLAMAS, [facility] Primary Care Provider Tawanda Peralta [phone] REASON FOR VISIT COLOGUARD IS NEGATIVE Encounters Encounter Location Date Provider Diagnosis [facility] [address] [place] [address] 07/20/2023 Tawanda Starr PLAN OF TREATMENT No Information
--- OUTSIDE RECORDS SUMMARY | 2024-06-10 09:16 | XMS_ITS ---
Author Organization [facility] Address [address] [place] [phone] Care Team Providers Care Advanced Solutions Architect Name Role Phone Herman LLAMAS, [facility] Primary Care Provider Tawanda Peralta [phone] REASON FOR VISIT egd Encounters Encounter Location Date Provider Diagnosis [facility] [address] [place] [address] 09/14/2023 Tawanda Starr PLAN OF TREATMENT No Information
--- OUTSIDE RECORDS SUMMARY | 2024-06-10 09:16 | XMS_ITS | Patient Health Record ---
Author Organization [facility] Address [address] [place] [address] Care Team Providers Care Car Detailer Name Role Phone Herman LLAMAS, [facility] Primary Care Provider Tawanda Peralta [phone] ALLERGIES Allergen (clinical drug ingredient) Drug/Non Drug Allergy documented on EMR Reaction Allergy Type Onset Date Status Penicillin Unknown Drug Allergy Active RESULTS Component Value Reference Range Notes Complete Blood Count Auto Di ff Reviewed date:09/17/2023 11:23:00 PM Interpretation: Performing Lab:[facility], [address] [place] [phone] Notes/Report: White Blood Count 10.0 4.8-10.8 X10*3/uL [...] OBSX3 Reviewed date:06/27/2023 12:11:23 AM Interpretation: Performing Lab:[facility], [address] [place] [phone] Notes/Report: OBS1 NEGATIVE NEGATIVE OBS Date 1 06/22/2023 OBS2 NEGATIVE NEGATIVE OBS Date 2 06/24/2023 OBS3 NEGATIVE NEGATIVE OBS Date 3 06/26/2023 IRON PROFILE Reviewed date:06/26/2023 01:51:51 PM Interpretation: Performing Lab:[facility], [address] [place] [phone] Notes/Report: Iron 66 45-160 mcg/dL Total Iron Binding Capacity 275 228-428 mcg/d L Percent Iron Saturation 24 15-50 % Unsaturated Iron Binding 209 Ferritin Reviewed date:06/26/2023 01:52:01 PM Interpretation: Performing Lab:[facility], [address] [place] [phone] Notes/Report: Ferritin 36 20-250 ng/mL REASON FOR [...] unspecified whether esophagitis present (K21.9) Active confirmed [id number] Problem Anemia, unspecified type (D64.9) Active confirmed [id number] Encounters Encounter Location Date Provider Diagnosis [facility] [address] [place], [place] [phone] 07/11/2023 Tawanda Starr [facility] [address] [place], [place] [id number] 09/21/2023 Tawanda Starr [facility] [address] [place] [phone] 06/22/2023 Tawanda Starr [facility] [address] [place] [phone] 07/20/2023 Tawanda Starr [facility] [address] [place] [phone] 09/14/2023 Tawanda Starr PLAN OF TREATMENT Pending [...] Date [employer] Medicare Advantage Plan [address] [address] [place] [address] [id number] ARMINDA VARGAS Self - patient is the insured MEDICAL (GENERAL) HISTORY Medical History History ICD Code Hypertension [id number] Dr. Mu tate. He has had normal iron studies in the past. He had a borderline low B12 level once but with negative intrinsic factor antibodies. His hemoglobin has been stable in the range of 12-12.6 since 2020. Emphysema- mild History of kidney stones He had a negative colonoscop y in April of [address] Gibson in [place] and he reports negative colonoscopy about 10 years prior to that as well Negative cardiac cath in 2020-sees Dr. Faustino diaz GERD Denies TX,DM,CVA,renal disease Surgical History Surgery Date(Month/Year) TEETH REMOVED WITH IMPLANTS 05/2022 Cleft lip and palate
== END 2024-06-10 09:37 | disposition home or self-care (01) ==
PROVIDERS: PCP Internal Medicine; Visit Provider Internal Medicine
DX: Z00.00 Encounter for general adult medical examination without abnormal findings (principal); D69.6 Thrombocytopenia, unspecified; Z98.890 Other specified postprocedural states; Z87.19 Personal history of other diseases of the digestive system; N40.0 Benign prostatic hyperplasia without lower urinary tract symptoms; D63.8 Anemia in other chronic diseases classified elsewhere; I25.10 Atherosclerotic heart disease of native coronary artery without angina pectoris; I10 Essential (primary) hypertension; E78.9 Disorder of lipoprotein metabolism, unspecified; R10.13 Epigastric pain; Z12.11 Encounter for screening for malignant neoplasm of colon; Z23 Encounter for immunization

== ENCOUNTER → 2024-06-10 08:46 | Outpatient (BNVA) | payer MEDICARE, SELFPAY | PROVIDERS: PCP Internal Medicine; Visit Provider Internal Medicine | DX: Z00.01 Encounter for general adult medical examination with abnormal findings (principal); Z23 Encounter for immunization; N40.0 Benign prostatic hyperplasia without lower urinary tract symptoms; D69.6 Thrombocytopenia, unspecified; D63.8 Anemia in other chronic diseases classified elsewhere; I25.10 Atherosclerotic heart disease of native coronary artery without angina pectoris; I10 Essential (primary) hypertension; E78.9 Disorder of lipoprotein metabolism, unspecified; R10.13 Epigastric pain; Z87.19 Personal history of other diseases of the digestive system; Z98.890 Other specified postprocedural states | CPT/HCPCS: 90471; 90677; 90715; 96127; 99397 ==

== ENCOUNTER 2024-06-17 10:12 | Outpatient (AMB) | payer MEDICARE, SELFPAY ==
--- NOTE | 2024-06-17 10:18 | MHC.OFFVIS ---
Intake Visit Reasons: 6 month follow up PVR Intake Note: Patient presents for follow up visit on PVR Urology Medications: Tamsulosin Blood Thinner: none PVR: 17ml's Endodontist Required: No Allergies Penicillins Adverse Reaction (Severe, Verified 06/17/24 10:49) Diarrhea Medication List - Last Reconciled 06/17/24 by CHRISSIE Agee amlodipine 5 mg PO BID atorvastatin 40 mg PO DAILY blood pressure monitor As directed carvedilol 6.25 mg PO BID folic acid 1 mg PO DAILY hydrochlorothiazide 12.5 mg PO DAILY omeprazole 20 mg PO QAM tamsulosin (Flomax) 0.4 mg PO BEDTIME 90 days HPI Comments Details: David is a 69-year-old male patient of Dr. Sutton. He has a past medical history of dyspepsia, hypertension, and lipid disorder. He presents to the office today for follow-up. In discussion with the patient today reports to be doing and feeling well. He denies having had any bothersome urinary issues or concerns since his last office visit here. He reports having trialed coming off of Flomax however start experiencing weak urinary stream therefore resume medication. Previous workup has included a retroperitoneal ultrasound 11/13 noting bilateral kidneys with no renal calculi or hydronephrosis. Bilateral cysts are seen that require no imaging follow-up per radiology report. The bladder is well distended and normal. Bilateral jets are demonstrated. Pre void bladder volume is approximately 200 mL. Postvoid bladder volume is approximately 20 mL. The prostate is enlarged with a volume of approximately 35 mL. PSAs are as follows: 06/15 0.8, 12/14 0.8 In discussion with the patient today he reports noting significant improvement in lower urinary tract symptoms he had been experiencing with 0.4 mg of Flomax daily. He currently denies any bothersome urinary issues or concerns. He denies urinary urgency, urinary frequency, incontinence, nocturia, hematuria, dysuria, foul smelling urine, flank pain, fever, and or chills. We discussed improvement in PVR since last office visit. In office urinalysis results reviewed with the patient today. PVR 17 mL. He otherwise offers no other issues or concerns at this time. [facility] Medical History CAD (coronary artery disease) Back pain Osteoarthritis Anemia Thrombocytopenia BPH (benign prostatic hyperplasia) Renal calculi Dyspepsia Hypertension, essential Lipid disorder Surgical History Right inguinal hernia (11/30/23) History of testicular surgery H/O cleft lip repair S/P cardiac catheterization Family History Father CVD (cardiovascular disease) Mother Anxiety Maternal Aunt Cancer Social History Household Members: Spouse and Children [facility] Are you a primary spiritual care coordinator to a significant other at home: No Do you presently have visiting nurse or other home services: No Alcohol intake: current Alcohol intake frequency: holidays/special occasions only Comment: COUNTS CORRECT Patient Tobacco Use Status: Former Tobacco user Tobacco use type: Cigarette Years Smoked: 30 e-Cigarette/Vaping Use: Never Used Second Hand Smoke Exposure: No service: No Current occupational status: 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 Cognitive needs: No Hearing needs: No Vision needs: Yes Review of Systems Const Reports no additional complaints Eyes Reports no additional complaints ENT Reports no additional complaints Card Reports as per HPI Resp Reports no additional complaints GI Reports as per HPI Reports as per HPI Musc Reports no additional complaints Neuro Reports no additional complaints Psych Reports no additional complaints Endo Reports no additional complaints Cornelius/Lymph Reports no additional complaints Aller/Immun Reports no additional complaints Physical Exam Const General: cooperative, healthy appearing, comfortable, no acute distress, well developed, alert and awake Nutritional Appearance: average body habitus Orientation/consciousness: patient oriented x3 Limitations: no limitations HEENT Head: Yes normal to inspection, Yes normocephalic and Yes atraumatic Ears: hearing grossly normal bilaterally Eyes General: appearance normal, both eyes and all related structures Neck Neck: Yes normal visual inspection and Yes trachea midline Chest Chest palpation & inspection: normal inspection of the chest Resp Effort & Inspection: normal respiratory effort and able to speak in complete sentences Cardio Rate: regular rate GI Inspection: Yes normal to inspection General: Yes no CVA tenderness Back/Spine/Pelvis Back: no CVA tenderness Skin General skin exam: no rashes or lesions noted Neuro General: patient oriented x3 Extrem General: Yes normal to inspection Psych Appearance: grossly normal and well kempt Mental Status: mental status grossly normal Speech and movement: Normal speech and movement present and Clear speech present Affect: normal affect Attitude: cooperative Thought process: Normal thought process present Thought content: Normal thought content present Insight: Fair insight present (Psych) Judgement: Fair judgement present (Psych) Office Procedures Post Void Residual Post Residual Void Post Void Residual (PVR): 17 [id number] Void Residual by ultrasound Results AMB Urinalysis, Automated UA Leukoctes 0 April/uL Last Edit by Ivory Lopez on 06/17/24 10:40 UA Nitrite Negative Last Edit by Ivory Lopez on 06/17/24 10:40 UA Urobilinogen 0.2 mg/dL Last Edit by Best[employer]brandon [employer] on 06/17/24 10:40 UA Protein 15 mg/dL Last Edit by Ivory Lopez on 06/17/24 10:40 UA pH 6.0 Last Edit by Ivory Lopez on 06/17/24 10:40 UA Blood 0 Joel/uL Last Edit by Beststudybrandon Lopez on 06/17/24 10:40 UA Specific [place] 1.015 Last Edit by PT [place] Inti Selarasronald Lopez on 06/17/24 10:40 UA Ketone Negative Last Edit by Beststudybrandon Lopez on 06/17/24 10:40 UA Bilirubin 0 mg/dL Last Edit by PT [employer] [employer] Selarasronald Lopez on 06/17/24 10:40 UA Glucose 0 mg/dL Last Edit by Ivory Lopez on 06/17/24 10:40 Results Reviewed Results Reviewed: Laboratory Last Values Urine pH (Auto) 6.0 06/17/24 10:36 Specific [place] (Auto) 1.015 06/17/24 10:36 Urine Protein (Auto) 15 mg/dL 06/17/24 10:36 Glucose (UA)(Auto) 0 mg/dL 06/17/24 10:36 Urine Ketones (Auto) Negative 06/17/24 10:36 Urine Blood (Auto) 0 Joel/uL 06/17/24 10:36 Urine Nitrite (Auto) Negative 06/17/24 10:36 Urine Bilirubin (Auto) 0 mg/dL 06/17/24 10:36 Urine Urobilinogen (Auto) 0.2 mg/dL 06/17/24 10:36 Leukocyte Esterase (Auto) 0 April/uL 06/17/24 10:36 Assessment & Plan Assessment & Plan (1) Enlarged prostate: Code(s): N40.0 - Benign prostatic hyperplasia without lower urinary tract symptoms Category: Medical (2) Renal cyst: Code(s): N28.1 - Cyst of kidney, acquired Category: Medical (3) Straining on urination: Code(s): R39.16 - Straining to void Category: Medical (4) Urinary hesitancy due to benign prostatic hyperplasia: Code(s): N40.1 - Benign prostatic hyperplasia with lower urinary tract symptoms; R39.11 - Hesitancy of micturition Category: Medical Plan In office urinalysis results reviewed with the patient today; as noted above. PVR 17 mL. Continue Flomax as discussed and prescribed. He reports be happy with current voiding parameters on Flomax. He currently denies any bothersome urinary issues or concerns. Will continue with surveillance monitoring. We discussed further treatment options of lower urinary tract symptoms to include in office cystoscopy and or urodynamics for further assessment evaluation; however will continue with surveillance monitoring as patient feels Flomax has been helpful. Will obtain PSA in 6 months. Follow-up in 6 months with PSA and PVR; or sooner with any issues, concerns, and or questions. Orders: Orders AMB Post Void Residual by ultrasound Today R39.9 - Unspecified symptoms and signs involving the genitourinary system AMB Urinalysis Automated Today Z13.9 - Encounter for screening, unspecified Prostate Specific Antigen 6 Months N40.0 - Benign prostatic hyperplasia without lower urinary tract symptoms Patient Instructions: The patient had an opportunity to ask questions regarding the treatment plan. All questions were answered. Physical exam, labs, and imaging were discussed and reviewed in detail. As well as risks, benefits, and discussion of treatment choices. No major barriers to understanding were identified. The patient expressed understanding and agreement with the above treatment plan. The patient was made aware they should contact our office by phone for worsening of their current condition, the appearance of new symptoms, or with any questions or concerns. Compliance is encouraged with any medications and follow up testing that is ordered. It is a privilege to be allowed the opportunity to participate in? your urological care.? Again, if you have any questions or concerns If you have any questions or concerns please do not hesitate to contact me. The office is [phone]. This note is constructed using voice recognition software. While every effort has been made to ensure accuracy vp business development errors may have been included. Yours sincerely, BERNARD Agee-BC Coding Level of Care Code Est Pt Level 3 (21858) Complex EM visit Add On G2211 Diagnoses Enlarged prostate N40.0 Renal cyst N28.1 Straining on urination R39.16 Urinary hesitancy due to benign prostatic hyperplasia N40.1; R39.11 CPT Codes Post Residual Void - PVR CPT Code: 01095-Nzjy Void Residual by ultrasound ([id number])
== END 2024-06-17 10:48 | disposition home or self-care (01) ==
PROVIDERS: PCP Internal Medicine; Visit Provider Nurse Practitioner Family
DX: N40.0 Benign prostatic hyperplasia without lower urinary tract symptoms (principal); N28.1 Cyst of kidney, acquired; N40.1 Benign prostatic hyperplasia with lower urinary tract symptoms; R39.16 Straining to void; R39.11 Hesitancy of micturition; Z13.9 Encounter for screening, unspecified
CPT/HCPCS: 99213; G2211

== ENCOUNTER → 2024-06-17 10:12 | Outpatient (BNVA) | payer MEDICARE, SELFPAY | PROVIDERS: PCP Internal Medicine; Visit Provider Nurse Practitioner Family | DX: N40.1 Benign prostatic hyperplasia with lower urinary tract symptoms (principal); N28.1 Cyst of kidney, acquired; R39.16 Straining to void; R39.11 Hesitancy of micturition; Z79.899 Other long term (current) drug therapy | CPT/HCPCS: 51798; 81003; 99212 ==

== ENCOUNTER 2024-10-15 14:56 | Outpatient (AMB) | payer MEDICARE, SELFPAY ==
--- NOTE | 2024-10-15 15:46 | A.OFFVIS_ITS ---
Vital Signs 10/15/24 15:49 Height 5 ft 11 in Weight 160 lb 7.944 oz BMI 22.4 BP 130/62 Blood Pressure Location Lt brachial Position Sitting Pulse 59 Pulse Source Monitor Intake Visit Reasons: r/s x2 3 mth fu Intake Note: r/s 3mth f/up Intern Retail Required: No Accompanied by: Self / Same As Patient Allergies Penicillins Adverse Reaction (Severe, Verified 06/17/24 10:49) Diarrhea Medication List - Last Reconciled 10/15/24 by Lee Lepe MD amlodipine 5 mg PO BID atorvastatin 40 mg PO DAILY blood pressure monitor As directed carvedilol 6.25 mg PO BID folic acid 1 mg PO DAILY hydrochlorothiazide 12.5 mg PO DAILY omeprazole 20 mg PO QAM tamsulosin (Flomax) 0.4 mg PO BEDTIME 90 days HPI Comments Details: 69-year-old gentleman here for follow-up. He has h/o high blood pressure. Previously had facial flushing which was due to cyanocobalamin and after stopping it his facial flushing is improved. Doing well without any chest pain or shortness of breath. No new complaints. 05/02/23: He is here for follow-up today. Denying any symptoms. No chest discomfort shortness of breath. His blood pressure in the office is elevated. Manual check is 150/70. Taking medication regularly. He is saying he is taking little more salt than usual. 10/22/23: He is here for follow-up. Blood pressure is much better controlled. Taking amlodipine 5 mg twice a day, carvedilol 6.25 mg twice a day and hydrochlorothiazide 12.5 mg daily. He has abdominal hernia and is seeing surgery for potential treatment. He is saying he gets pain at the site but has never had any obstruction. 04/28/2024: He is here for follow-up. Blood pressure is well controlled. He is complaining of trace edema or his shins when he removes his socks. This is something he started noticing over the last month. No other change in symptoms including no chest pain, shortness of breath, orthopnea. Blood pressure is well controlled on amlodipine 5 mg twice a day, carvedilol 6.25 mg twice a day, hydrochlorothiazide 12.5 mg daily. 10/15/2024: He is here for follow-up. He has been doing well and has no exertional symptoms. 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 He is saying he has no symptoms when he is walking or doing activities. Blood pressure is well controlled. [facility] Medical History CAD (coronary artery disease) Back pain Osteoarthritis Anemia Thrombocytopenia BPH (benign prostatic hyperplasia) Renal calculi Dyspepsia Hypertension, essential Lipid disorder Surgical History Right inguinal hernia (11/30/23) History of testicular surgery H/O cleft lip repair S/P cardiac catheterization Family History Father CVD (cardiovascular disease) Mother Anxiety Maternal Aunt Cancer Social History Household Members: Spouse and Children Housing: [facility] Are you a primary child care attendant school to a significant other at home: No Do you presently have visiting nurse or other home services: No Alcohol intake: current Alcohol intake frequency: holidays/special occasions only Comment: COUNTS CORRECT Patient Tobacco Use Status: Former Tobacco user Tobacco use type: Cigarette Years Smoked: 30 e-Cigarette/Vaping Use: Never Used Second Hand Smoke Exposure: No service: No Current occupational status: 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 Cognitive needs: No Hearing needs: No Vision needs: Yes Review of Systems Const Denies chills, Denies fatigue, Denies fever(s), Denies frequent falls, Denies weakness, Denies weight gain and Denies weight loss ENT Denies dizziness Card Denies chest pain, Denies leg edema, Denies lightheadedness, Denies palpitations, Denies dyspnea and Denies dyspnea on exertion Resp Denies cough, Denies dyspnea and Denies dyspnea on exertion GI Denies hematochezia Musc Denies abnormal gait, Denies muscle weakness, Denies numbness, Denies radiating pain into limb and Denies tingling Neuro Denies abnormal gait, Denies dizziness, Denies frequent falls, Denies numbness, Denies tingling and Denies weakness Endo Denies fatigue and Denies palpitations Physical Exam Vital Signs: Last Vital Signs Pulse 59 10/15/24 15:49 BP 130/62 10/15/24 15:49 BMI result Body Mass Index 22.4 GENERAL APPEARANCE: in no acute distress, pleasant. NECK: no carotid bruit, no jugular venous distention. SKIN: no suspicious lesions, warm and dry. HEART: no murmurs, regular rate and rhythm. LUNGS: clear to auscultation bilaterally. ABDOMEN: soft, nontender. EXTREMITIES: Trace edema. PERIPHERAL PULSES: equal. NEUROLOGIC: No gross deficits, AAO X 3 Office Procedures EKG Details: Sinus bradycardia 59 beats per minute, normal axis, incomplete right bundle- branch block, QTC 433 milliseconds. [id number], Complete Assessment & Plan Assessment & Plan (1) Hypertension, essential: Code(s): I10 - Essential (primary) hypertension Category: Medical (2) Peripheral edema: Code(s): R60.0 - Localized edema Category: Medical Plan [age] gentleman who is here for follow-up. Blood pressure is well controlled on multiple medicines at this point. Tolerating medicines well and has no chest discomfort or shortness of breath. Mild edema at ankles. Related with amlodipine use. Blood pressure is well controlled currently with medications and this does not appear to be a significant issue for the patient so would recommend not stopping the amlodipine. Otherwise clinically stable. Follow-up with us in 6 months. Thank you for allowing me to participate in the care of your patient. Please f eel free to contact me if you have any questions. Coding Level of Care Code Est Pt Level 3 (80865) Complex EM visit Add On G2211 Diagnoses Hypertension, essential I10 Peripheral edema R60.0 CPT Codes EKG - CPT: 22177-[id number], Complete ([id number])
[2024-10-15 15:49] VITALS: BP 130/62; PULSE 59; BMI 22.4
--- OUTSIDE RECORDS SUMMARY | 2024-10-15 17:51 | XMS_ITS | Patient Health Record ---
Author Organization [facility] Address [address] [place] [id number] Care Team Providers Care Foot Cutter Name Role Phone Herman LLAMAS, [facility] Primary [facility] Provider UnavailTawanda Castellon Unavailable [phone] Allergies Allergen (clinical drug ingredient) Drug/Non Drug Allergy documented on EMR Reaction Allergy Type Onset Date Status Penicillin Unknown Drug Allergy Active Reason For Referral No Information Medications Medication SIG (Take, Route, Frequency, Duration) Notes [...] 20 MG Oral for 90 A ctive Social History Tobacco Use: Social History Observation Description Date Details (start date - stop date) Former Smoker NA - NA Tobacco Use/Smoking Question Answer Notes Patient is [...] Never (0 point) Points 0 Interpretation Negative Section Notes: Quit smoking 2003, no significant alcohol [employer] fan Problems Problem Type SNOMED Code ICD Code Onset Dates Problem Status W/U Status Risk Notes Problem [id number] Anemia, unspecif ied type (D64.9) Active confirmed Problem [id number] Gastroesophageal reflux disease, unspecified whether esophagitis present (K21.9) Active confirmed Plan Of Treatment Pending Test Test Name Order Date Hemoccult Cards (Non-Screening) 04/10/20 23 IRON + IBC (FE) 04/10/2023 CBC w DIFF 04/10/2023 Ferritin 04/10/2023 Future Test Test Name Order Date UPPER GI ENDOSCOPY 04/10/2023 Next Appt Details Provider Name:Tawanda Starr , 10/16/2024 10:20:00 AM, [address] [place] [address], [address], [place], [address], Insurance Providers Payer Name Payer Address Payer Phone Subscriber Number Group Number Insured Name Patient Relationship to Insured Coverage Start Date Coverage End Date [facility] [address] [address] [place] [phone] [id number] ARMINDA VARGAS Self - patient is the insured Medical (General) History Medical History History ICD Code Hypertension [id number]-fitg Dr. Mu tate. He has had normal iron studies in the past. He had a borderline low B12 level once but with negative intrinsic factor antibodies. His hemoglobin has been stable in the range of 12-12.6 since 2020. Emphysema- mild History of kidney stones He had a negative colonoscop y in April of [address] Gibson in [place] and he reports negative colonoscopy about 10 years prior to that as well Negative cardiac cath in 2020-sees Dr. Faustino diaz GERD Denies MD,DM,CVA,renal disease Surgical History Surgery Date(Month/Year) TEETH REMOVED WITH IMPLANTS 05/2022 Cleft lip and palate
== END 2024-10-15 16:15 | disposition home or self-care (01) ==
LOC: HO.HCS 14:57
PROVIDERS: PCP Internal Medicine; Visit Provider Internal Medicine Cardiovascular Disease
DX: I10 Essential (primary) hypertension (principal); R60.0 Localized edema
CPT/HCPCS: 93010; 99213; G2211

== ENCOUNTER → 2024-10-15 14:56 | Outpatient (BNVA) | payer MEDICARE, SELFPAY | PROVIDERS: PCP Internal Medicine; Visit Provider Internal Medicine Cardiovascular Disease | DX: I10 Essential (primary) hypertension (principal); R60.0 Localized edema; I45.19 Other right bundle-branch block; R00.1 Bradycardia, unspecified | CPT/HCPCS: 93005; 99212 ==

== ENCOUNTER 2024-10-28 08:03 | Outpatient (AMB) | payer MEDICARE, SELFPAY ==
--- OUTSIDE RECORDS SUMMARY | 2024-10-16 06:20 | XMS_ITS ---
Author Organization [facility] Address [address] [place] [id number] Care Team Providers Care Sand Miller Name Role Phone Herman LLAMAS, [facility] Primary Care Provider UnavailTawanda Castellon Unavailable [phone] Allergies Allergen (clinical drug ingredient) Drug/Non Drug Allergy documented on EMR Reaction Allergy Type Onset Date Status Penicillin Unknown Drug Allergy Active REASON FOR VISIT patient presents today for screening colon Medications Medication SIG (Take, Route, Frequency, Duration) Notes Start Date End Date Status amLODIPine Besylate 5 MG Oral for 90 Active hydroCHLOROthiazide 12.5 MG Oral for 90 Active Atorvastatin Calcium 40 MG TAKE 1 TABLET BY MOUTH DAILY Oral for 90 Active Omeprazole 20 MG Oral for 90 A ctive Folic Acid 1 MG Oral for 90 Ac tive Tamsulosin HCl 0.4 MG 1 capsule Orally Once a day Active Carvedilol 6.25 MG TAKE 1 TABLET BY MOUTH TWICE DAILY Oral for 90 I10,Unavailab le Active Social History Tobacco Use: Social History Observation [...] Notes: Quit smoking 2003, no significant alcohol [employer] fan Problems Problem Type SNOMED Code ICD Code Onset Dates Problem Status W/U Status Risk Notes Problem Colon cancer screening (Z12.11) Active confirmed Vital Signs Blood pressure systolic 111 mm Hg 10/17/19 25 Blood pressure diastolic 77 mm Hg 025 Height 72 in 10/16/2024 Weight 160 lbs 10/16/2024 BMI 21.7 kg/m2 10/16/2024 Encounters Encounter Location Date Provider Diagnosis [facility] [address] [place] [address] 10/16/2024 Tawanda Starr Gastroesophageal ref lux disease, unspecified whether esophagitis present K21.9 ; Anemia, unspecified type D64.9 and Colon cancer screening Z12.11 Assessments Encounter Date Diagnosis (ICD Code) Assessment Notes Treatment Notes Treatment Clinical Notes Section Notes 10/16/2024 Gastroesophageal reflux disease, unspecified whether esophagitis present (ICD-10 - K21.9) Continue omeprazole and we will do your upper endoscopy when we do your colonoscopy in 2027 Overall, Arminda appears well. He is not having any new or worrisome GI complaints. His chronic anemia remains quite stable and again does not appear to be consistent with iron deficiency or chronic blood loss. We had a detailed discussion today as to whether or not he would need a colonoscopy. At this point since he does not have iron deficiency anemia, he has had a negative Cologuard and negative Hemoccult cards in the past 1 year or so, has had 2 negative screening colonoscopies in the past including the most recent one in 2018, and has no family of colorectal cancer, I advised him that there is no definitive indication for a colonoscopy this year. As such I would recommend he have this done in 2027 as the 10-year follow-up to the exam in 2018. I advised him I would recommend an upper endoscopy at that time as well for evaluation of the chronic reflux. I do not think that needs to be done any sooner since he is not having any worrisome symptoms such as dysphagia or anorexia. I did advise him to continue his daily omeprazole. Overall, Arminda was very comfortable with this plan. He was more than happy to hold off on any GI procedures unless he absolutely needed them at the present time. I did advise him to contact me prior to 2027 if he develops any new or worrisome GI complaints. Thank you again for allowing me to participate in Arminda's care. I shall continue to keep you advised of his progress as needed. Please do not hesitate to contact me if if I can be of any further assistance in the interim. 10/16/2024 Anemia, unspecified type (ICD-10 - D64.9) Overall, Arminda appears well. He is not having any new or worrisome GI complaints. His chronic anemia remains quite stable and again does not appear to be consistent with iron deficiency or chronic blood loss. We had a detailed discussion today as to whether or not he would need a colonoscopy. At this point since he does not have iron deficiency anemia, he has had a negative Cologuard and negative Hemoccult cards in the past 1 year or so, has had 2 negative screening colonoscopies in the past including the most recent one in 2018, and has no family of colorectal cancer, I advised him that there is no definitive indication for a colonoscopy this year. As such I would recommend he have this done in 2027 as the 10-year follow-up to the exam in 2018. I advised him I would recommend an upper endoscopy at that time as well for evaluation of the chronic reflux. I do not think that needs to be done any sooner since he is not having any worrisome symptoms such as dysphagia or anorexia. I did advise him to continue his daily omeprazole. Overall, Arminda was very comfortable with this plan. He was more than happy to hold off on any GI procedures unless he absolutely needed them at the present time. I did advise him to contact me prior to 2027 if he develops any new or worrisome GI complaints. Thank you again for allowing me to participate in Arminda's care. I shall continue to keep you advised of his progress as needed. Please do not hesitate to contact me if if I can be of any further assistance in the interim. 10/16/2024 Colon cancer screening (ICD-10 - Z12.11) Repeat colonoscopy in 04/2027 Overall, Arminda appears well. He is not having any new or worrisome GI complaints. His chronic anemia remains quite stable and again does not appear to be consistent with iron deficiency or chronic blood loss. We had a detailed discussion today as to whether or not he would need a colonoscopy. At this point since he does not have iron deficiency anemia, he has had a negative Cologuard and negative Hemoccult cards in the past 1 year or so, has had 2 negative screening colonoscopies in the past including the most recent one in 2018, and has no family of colorectal cancer, I advised him that there is no definitive indication for a colonoscopy this year. As such I would recommend he have this done in 2027 as the 10-year follow-up to the exam in 2018. I advised him I would recommend an upper endoscopy at that time as well for evaluation of the chronic reflux. I do not think that needs to be done any sooner since he is not having any worrisome symptoms such as dysphagia or anorexia. I did advise him to continue his daily omeprazole. Overall, Arminda was very comfortable with this plan. He was more than happy to hold off on any GI procedures unless he absolutely needed them at the present time. I did advise him to contact me prior to 2027 if he develops any new or worrisome GI complaints. Thank you again for allowing me to participate in Arminda's care. I shall continue to keep you advised of his progress as needed. Please do not hesitate to contact me if if I can be of any further assistance in the interim. Plan Of Treatment Treatment Notes Assessment Notes Gastroesophageal reflux dise ase, unspecified whether esophagitis present Continue omeprazole and we will do your upper endoscopy when we do your colonoscopy in 2027 Colon cancer screening Repeat colonoscop y in 04/2027 Progress Notes * ARMINDA VARGAS CDOB:1955 (69 yo M)Acc No.[id number]:10/16/2024 Progress Notes Patient: ARMINDA MARQUEZ Provider: Maria Esther Starr MD :1955 A ge:69 Y S ex:Male Date:10/16/2024 Address:[address] [place] [address] Pcp:Lani Sutton MD Subjective: * Chief Complaints: * 1 . Patient presents today for screening colon. * HPI: i ncontinence: I saw Arminda in follow-up today in regard to his chronic anemia and gastroesophageal reflux, as well as discussion of colorectal cancer screening. I met Arminda in March 2023 for an initial office visit. At that time the visit was for evaluation of a chronic anemia which was not due to iron deficiency. I had scheduled him for an upper endoscopy after that visit as he did have a longstanding history of reflux which was well-controlled on omeprazole but he never had an endoscopy to look for Breaux's esophagus. He ultimately canceled the upper endoscopy twice due to starting a new job and then having hernia surgery, and ultimately did not reschedule. I held off on a colonoscopy at that time since he had a negative exam in 2018, as well as 1 prior to that, and did not have any family history of colon cancer or any lower GI symptoms. He was also not iron deficient and submitted a negative Cologuard test in 2023 as well. He also turned in 3 negative Hemoccult cards at the lab in 2023. He is presently continuing to feel very well. He continues to do well on daily omeprazole without any heartburn or dysphagia. His bowel movements have been regular without any sign of bleeding. He denies any abdominal pain, jaundice, nor unintentional weight loss. He denies any known family history of colorectal cancer. His most recent labs from April showed a hemoglobin of 11.9 with a normal MCV. He also had normal chemistries and renal function. In 2023 his iron was 66 with an iron saturation of 24% and a ferritin of 36. His liver profiles have been normal. This past April it appears that his iron was 117 with an iron saturation of 41% and a ferritin of 51. He had a normal folate level and borderline B12 level of 199. Studies were negative for pernicious anemia and he has been on oral B12. * Medical History: H ypertension, Riuhqc-mpgnaow-yxhc Dr. Duque. He has had normal iron studies in the past. He had a borderline low B12 level once but with negative intrinsic factor antibodies. His hemoglobin has been stable in the range of 12-12.6 since 2020., Emphysema- mild , History of kidney stones , He had a negative colonoscopy in April of [address] Gibson in [place] and he reports negative colonoscopy about 10 years prior to that as well, Negative cardiac cath in 2020-sees Dr. Lepe, GERD, Denies DC,DM,CVA,renal disease. * Surgical History: T EETH REMOVED WITH IMPLANTS 05/2022, Cleft lip and palate , spinal stenososis , Right inguinal hernia 2023 Dr. Vazquez . * Family History: F ather: . M other: . no known hx of colon cancer. * Social History: T obacco Use: T obacco Use/Smoking P shirlene is a f ormer smoker. D rugs/Alcohol: A lcohol Screen D id you have a drink containing alcohol in the past year? Y es, H ow often did you have a drink containing alcohol in the past year? N ever (0 point), H ow many drinks did you have on a typical day when you were drinking in the past year? 1 or 2 drinks (0 point), H ow often did you have 6 or more drinks on one occasion in the past year? N ever (0 point), P oints 0 , I nterpretation N egative. M iscellaneous: Elmer sheridan: He has one18 year child. Marital status: . Occupation: Retired. Q uit smoking 2003, no significant alcohol [employer] fan. * Medications: T aking Tamsulosin HCl 0.4 MG Capsule 1 capsule Orally Once a day , Taking Carvedilol 6.25 MG Tablet TAKE 1 TABLET BY MOUTH TWICE DAILY Oral , Notes to Pharmacist: I10,Unavailable, Taking amLODIPine Besylate 5 MG Tablet Oral , Taking hydroCHLOROthiazide 12.5 MG Tablet Oral , Taking Folic Acid 1 MG Tablet Oral , Taking Atorvastatin Calcium 40 MG Tablet TAKE 1 TABLET BY MOUTH DAILY Oral , Taking Omeprazole 20 MG Capsule Delayed Release Oral , Medication List reviewed and reconciled with the patient * Allergies: P enicillin. Objective: * Vitals: W t:160lbs, Ht:72in, BMI:21.7Index, BP:111/77mm Hg, Ht-cm: 182.88, Wt-k.58. Assessment: * Assessment: 1. G astroesophageal reflux disease, unspecified whether esophagitis present - K21.9 (Primary)? 2. A nemia, unspecified type - D64.9 3 . C olon cancer screening - Z12.11 Overall, Arminda appears well. He is not having any new or worrisome GI complaints. His chronic anemia remains quite stable and again does not appear to be consistent with iron deficiency or chronic blood loss. We had a detailed discussion today as to whether or not he would need a colonoscopy. At this point since he does not have iron deficiency anemia, he has had a negative Cologuard and negative Hemoccult cards in the past 1 year or so, has had 2 negative screening colonoscopies in the past including the most recent one in 2018, and has no family of colorectal cancer, I advised him that there is no definitive indication for a colonoscopy this year. As such I would recommend he have this done in 2027 as the 10-year follow-up to the exam in 2018. I advised him I would recommend an upper endoscopy at that time as well for evaluation of the chronic reflux. I do not think that needs to be done any sooner since he is not having any worrisome symptoms such as dysphagia or anorexia. I did advise him to continue his daily omeprazole. Overall, Arminda was very comfortable with this plan. He was more than happy to hold off on any GI procedures unless he absolutely needed them at the present time. I did advise him to contact me prior to 2027 if he develops any new or worrisome GI complaints. Thank you again for allowing me to participate in Arminda's care. I shall continue to keep you advised of his progress as needed. Please do not hesitate to contact me if if I can be of any further assistance in the interim. Plan: * Treatment: 2. C olon cancer screening Notes: Repeat colonoscopy in 04/2027 * Preventive Medicine: Screenings: F all Risk Screening F all Risk Assessment: N o falls in the past year, S creening: N o falls in the past year, A ssessment: N ot performed, no reason specified, P niya of Care: N ot documented, no reason specified. * * The named appointment provid er may or may not be the originator of this progress note, and it is not deemed complete until electronically signed by the appointment provider. Sign off status: Pending * Provider: Maria Esther Starr MD Date: 0 10/16/2024 Generated for Lacey cheney/Mihir/Wilburitting on: 0 10/28/2024 08:06 AM EDT
[2024-10-28 08:06] VITALS: BP 116/62; PULSE 69; TEMP 36.9; O2SAT 98; BMI 22.6
--- NOTE | 2024-10-28 08:06 | AM.OFFWIN_ITS ---
Intake Vital Signs 10/28/24 08:06 Height 5 ft 11 in Weight 162 lb 4 oz BMI 22.6 BP 116/62 Blood Pressure Location Rt brachial Position Sitting Pulse 69 Pulse Source Pulse Oximeter Temp 98.5 F Temp Source Oral Pulse Oximetry (%) 98 Oxygen Delivery Method Room Air Intake Visit Reasons: EP Rash on LT hip side Intake Note: Patient present with a rash on left hip time 4 days Patient Tobacco Use Status: Former Tobacco user Senior Medical Technologist Required: No Allergies Penicillins Adverse Reaction (Severe, Verified 10/28/24 08:09) Diarrhea Do you need a note to return to daycare/school/sports/work: No HPI HPI Comments History of Present Illness Details History - The patient is a 69-year-old male pres enting with a rash. - The rash began four days ago during a camping trip and has spread to resemble a sunburn. - It is burning but not itchy, with no f ever or discharge. - He states that it started with a small bump, then spread and looked like vesicles. - Vesicles have resolved and now its jus t a red warm area on the left side of his groin. - The patient has a history of a spider bite but does not think this is similar. - The patient's , who had shingles, does not think this rash is similar to shingles. - He denies new foods, lotions, soaps, d etergents, medications, pets, clothes. - He denies fever, chills, joint pain, C P, or SOB. - He has been putting triple antibiotic ointment on the area. Physical Exam General: Cooperative, healthy appearing, comfortable, no acute distress and well developed Orientation: Patient oriented x3 Limitations: No limitations Mouth: normal, moist oral mucosa Neck: Normal visual inspection and Yes full ROM Respiratory: Normal respiratory effort and able to speak in complete sentences. Clear to auscultation bilaterally. No w/r/r noted. Cardiovascular: RRR, no m/r/g noted. Normal S1 and S2 Skin: Large area of erythema noted in the left groin, dry, blanchable, non- tender, no lesions noted. Patient was informed and verbally consented to the use of an ambient scribe for clinic note documentation during this visit [facility] Medical History CAD (coronary artery disease) Back pain Osteoarthritis Anemia Thrombocytopenia BPH (benign prostatic hyperplasia) Renal calculi Dyspepsia Hypertension, essential Lipid disorder Surgical History Right inguinal hernia (11/30/23) History of testicular surgery H/O cleft lip repair S/P cardiac catheterization Family History Father CVD (cardiovascular disease) Mother Anxiety Maternal Aunt Cancer Social History Household Members: Spouse and Children Housing: Condominium Are you a primary acute care registered nurse to a significant other at home: No Do you presently have visiting nurse or other home services: No Alcohol intake: current Alcohol intake frequency: holidays/special occasions only Comment: COUNTS CORRECT Patient Tobacco Use Status: Former Tobacco user Tobacco use type: Cigarette Years Smoked: 30 e-Cigarette/Vaping Use: Never Used Second Hand Smoke Exposure: No service: No Current occupational status: 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 Cellulitis - tylenol or motrin as needed for pain or fever - Prescribed antibiotics for 10 days to treat the skin infection. - Advised to monitor the rash for spreading and to return if it worsens or does not improve after antibiotics. Coding Level of Care Code Est Pt Level 3 (32849) Diagnoses Cellulitis of other specified site L03.818 Site of cellulitis: other site
--- OUTSIDE RECORDS SUMMARY | 2024-10-28 08:06 | XMS_ITS | Patient Health Record ---
Author Organization [facility] Address [address] [place] [address] Care Team Providers Care Chemical Production Engineer Name Role Phone Mian Ramirez MD Primary Care Provider Anant Ramirez Unavailable [phone] Allergies Allergen (clinical drug ingredient) Drug/Non Drug Allergy documented on EMR Reaction Allergy Type Onset Date Status Penicillin diarrhea Drug Allergy Active Reason For Referral No Information Medications Medication SIG (Take, Route, Frequency, Duration) Notes Start Date End Date Status Aspirin 81 MG 1 tablet Orally Once a day; Duration: 30 day(s) Active Lisinopril 40 MG 1 tablet Orally Once a day; Duration: 30 day(s) Active Pravastatin Sodium 20 MG 1 tablet Orally Once a day; Duration: 30 day(s) Active Omeprazole 20 MG 1 capsule Orally Onc e a day; Duration: 30 day(s) Active Problems Problem Type SNOMED Code ICD Code Onset Dates Problem Status W/U Status Risk Notes Problem Bursitis (63519046) Bursitis (727.3) Active confirmed Problem Calcaneal spur (31556090) Calcaneal spur (726.73) Active confirmed Problem Myositis (18545063) Myositis (729.1) Active confirmed Problem Pain in limb (31138593) Pain in Limb (729.5) Active confirmed Problem Plantar fasciitis (031128214) Plantar Fasciitis (728.71) Active confirmed Plan Of Treatment Pending Test Test Name Order Date X ray : Foot, right 3V 07/19/2012 Insurance Providers Payer Name Payer Address Payer Phone Subscriber Number Group Number Insured Name Patient Relationship to Insured Coverage Start Date Coverage End Date [facility] [employer] [address] [place] [phone] [id number] David Henley Self - patient is the insured Medical (General) History Medical History History ICD Code cholesterol high blood pressure mumps reflux Surgical History Surgery Date(Month/Year) cleft palate
== END 2024-10-28 08:39 | disposition home or self-care (01) ==
PROVIDERS: PCP Internal Medicine; Visit Provider Physician Assistant Medical
DX: L03.818 Cellulitis of other sites (principal)

== ENCOUNTER → 2024-10-28 08:03 | Outpatient (BNVA) | payer MEDICARE, SELFPAY | PROVIDERS: PCP Internal Medicine; Visit Provider Physician Assistant Medical | DX: L03.818 Cellulitis of other sites (principal) | CPT/HCPCS: 99212 ==

== ENCOUNTER 2024-12-13 07:09 | Outpatient (REF) | payer MEDICARE, SELFPAY ==
[2024-12-13 12:17] LABS: Prostate Specific Antigen 0.87 ng/mL (<0.05-4.0)
== END 2024-12-13 07:10 | disposition home or self-care (01) ==
LOC: HO.HMGCLDS 07:09
PROVIDERS: PCP Internal Medicine; Visit Provider Nurse Practitioner Family
DX: Z12.5 Encounter for screening for malignant neoplasm of prostate (principal); N40.0 Benign prostatic hyperplasia without lower urinary tract symptoms
CPT/HCPCS: 36415; 84153

== ENCOUNTER 2024-12-16 10:09 | Outpatient (AMB) | payer MEDICARE, SELFPAY ==
--- OUTSIDE RECORDS SUMMARY | 2023-09-21 06:50 | XMS_ITS ---
Author Organization [facility] Address [address] [place] [id number] Care Team Providers Care Welding Manager Name Role Phone Herman LLAMAS, Lani Primary Care Provider Tawanda Peralta [phone] REASON FOR VISIT gerd Encounters Encounter Location Date Provider Diagnosis [facility] [place] [address] [place] [address] [id number] 09/21/2023 Tawanda Starr Plan Of Treatment No Information Progress Notes * ARMINDA VARGAS CDOB:1955 (69 yo M)Acc No.[id number]:09/21/2023 EGD/MAC Patient: Arianna DOWNSARMINDA Provider: Maria Esther Starr MD :1955 A ge:68 Y S ex:Male Date:09/21/2023 Address:[address] [place] [address] [place], [id number] Pcp:Lani Sutton MD Subjective: * Chief Complaints: * 1 . Gerd. * Medical History: Objective: * Vitals: Assessment: Plan: * Treatment: * * The named appointment provid er may or may not be the originator of this progress note, and it is not deemed complete until electronically signed by the appointment provider. Sign off status: Pending * Provider: Maria Esther Starr MD Date: 0 09/21/2023 Generated for Printi ng/Faxing/eTransmitting on: 0 12/16/2024 10:52 AM EDT
--- NOTE | 2024-12-16 10:16 | A.OFFVIS_ITS ---
Intake Visit Reasons: 6m/PSA/PVR Intake Note: Patient is present for 6M/PSA/PVR Urology Medication:TAMSULOSIN Antibiotic Allergy:PENICILLINS Blood Thinner:NONE TODAY'S PVR:0ML'S Director [place] [employer] Required: No Allergies Penicillins Adverse Reaction (Severe, Verified 12/16/24 10:27) Diarrhea HPI Comments Details: David is a 69-year-old male patient of Dr. Sutton. He has a past med ical history of dyspepsia, hypertension, and lipid disorder. He presents to the office today for follow-up. In discussion with the patient today reports to be doing and feeling well. He denies having had any bothersome urinary issues or concerns since his last office visit here. He reports compliance with Flomax 0.4 mg as prescribed and feels this has been helpful in weak urinary stream he had been experiencing. In office urinalysis results reviewed with the patient today. PVR 0 mL. Previous workup has included a retroperitoneal ultrasound 11/13 noting bilateral kidneys with no renal calculi or hydronephrosis. Bilateral cysts are seen that require no imaging follow-up per radiology report. The bladder is well distended and normal. Bilateral jets are demonstrated. Pre void bladder volume is approximately 200 mL. Postvoid bladder volume is approximately 20 mL. The prostate is enlarged with a volume of approximately 35 mL. PSAs are as follows: 06/15 0.8, 12/14 0.8, 12/15 0.9 We did discuss further treatment options and risks and benefits of these treatment options. He currently denies any bothersome urinary issues or concerns. He denies urinary urgency, urinary frequency, incontinence, nocturia, hematuria, dysuria, foul smelling urine, flank pain, fever, and or chills. He would like to continue with current med management. He otherwise offers no other issues or concerns at this time. [facility] Medical History CAD (coronary artery disease) Back pain Osteoarthritis Anemia Thrombocytopenia BPH (benign prostatic hyperplasia) Renal calculi Dyspepsia Hypertension, essential Lipid disorder Surgical History (Reviewed 10/15/24 @ 15:50 by Marely Sprague [facility]) Right inguinal hernia (11/30/23) History of testicular surgery H/O cleft lip repair S/P cardiac catheterization Family History Father CVD (cardiovascular disease) Mother Anxiety Maternal Aunt Cancer Social History Household Members: Spouse and Children [facility] Are you a primary nurse healthcare manager to a significant other at home: No Do you presently have visiting nurse or other home services: No Alcohol intake: current Alcohol intake frequency: holidays/special occasions only Comment: COUNTS CORRECT Patient Tobacco Use Status: Former Tobacco user Tobacco use type: Cigarette Years Smoked: 30 e-Cigarette/Vaping Use: Never Used Second Hand Smoke Exposure: No service: No Current occupational status: 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 Cognitive needs: No Hearing needs: No Vision needs: Yes Review of Systems Const Reports no additional complaints Eyes Reports no additional complaints ENT Reports no additional complaints Card Reports as per HPI Resp Reports no additional complaints GI Reports as per HPI Reports as per HPI Musc Reports no additional complaints Neuro Reports no additional complaints Psych Reports no additional complaints Endo Reports no additional complaints Cornelius/Lymph Reports no additional complaints Aller/Immun Reports no additional complaints Physical Exam Const General: cooperative, healthy appearing, comfortable, no acute distress, well developed, alert and awake Nutritional Appearance: average body habitus Orientation/consciousness: patient oriented x3 Limitations: no limitations HEENT Head: Yes normal to inspection, Yes normocephalic and Yes atraumatic Ears: hearing grossly normal bilaterally Eyes General: appearance normal, both eyes and all related structures Neck Neck: Yes normal visual inspection and Yes trachea midline Chest Chest palpation & inspection: normal inspection of the chest Resp Effort & Inspection: normal respiratory effort and able to speak in complete sentences Cardio Rate: regular rate GI Inspection: Yes normal to inspection General: Yes no CVA tenderness Back/Spine/Pelvis Back: no CVA tenderness Skin General skin exam: no rashes or lesions noted Neuro General: patient oriented x3 Extrem General: Yes normal to inspection Psych Appearance: grossly normal and well kempt Mental Status: mental status grossly normal Speech and movement: Normal speech and movement present and Clear speech present Affect: normal affect Attitude: cooperative Thought process: Normal thought process present Thought content: Normal thought content present Insight: Fair insight present (Psych) Judgement: Fair judgement present (Psych) Office Procedures Post Void Residual Post Residual Void Post Void Residual (PVR): 0 [id number] Void Residual by ultrasound Results AMB Urinalysis, Automated UA Leukoctes 0 April/uL Last Edit by CHANNING Arana on 12/16/24 10:50 UA Nitrite Negative Last Edit by Rosalee Bailey [facility] on 12/16/24 10:50 UA Urobilinogen 0.2 mg/dL Last Edit by Rosalee Bailey [facility] on 12/16/24 10:5 0 UA Protein 0 mg/dL Last Edit by Rosalee Bailey [facility] on 12/16/24 10:50 UA pH 6.0 Last Edit by Rosalee Bailey [facility] on 12/16/24 10:50 UA Blood 0 Joel/uL Last Edit by [facility] on 12/16/24 10:50 UA Specific [place] 1.010 Last Edit by Rosalee Bailey [facility] on 12/16/24 10: 50 UA Ketone Negative Last Edit by [facility]alee [facility] on 12/16/24 10:50 UA Bilirubin 0 mg/dL Last Edit by Rosalee Bailey [facility] on 12/16/24 10:50 UA Glucose 0 mg/dL Last Edit by Rosalee Bailey [facility] on 12/16/24 10:50 Assessment & Plan Assessment & Plan (1) Enlarged prostate: Code(s): N40.0 - Benign prostatic hyperplasia without lower urinary tract symptoms Category: Medical (2) Lower urinary tract symptoms: Code(s): R39.9 - Unspecified symptoms and signs involving the genitourinary system Category: Medical Plan In office urinalysis results reviewed with the patient today; as noted above. PVR 0 mL. Continue Flomax as discussed and prescribed; refill provided. Recent PSA results reviewed with the patient today; as noted above. He currently denies any bothersome urinary issues or concerns. He reports be happy with current voiding parameters. Follow-up in 1 year with PSA and PVR; or sooner with any issues, concerns, and or questions. Orders: Orders AMB Urinalysis Automated Today Z13.9 - Encounter for screening, unspecified Prostate Specific Antigen 1 Year N40.0 - Benign prostatic hyperplasia without lower urinary tract symptoms, R39.9 - Unspecified symptoms and signs involving the genitourinary system Medications: Refilled tamsulosin (Flomax) 0.4 mg PO BEDTIME 90 caps 3RF 90 days Patient Instructions: The patient had an opportunity to ask questions regarding the treatment plan. All questions were answered. Physical exam, labs, and imaging were discussed and reviewed in detail. As well as risks, benefits, and discussion of treatment choices. No major barriers to understanding were identified. The patient expressed understanding and agreement with the above treatment plan. The patient was made aware they should contact our office by phone for worsening of their current condition, the appearance of new symptoms, or with any questions or concerns. Compliance is encouraged with any medications and follow up testing that is ordered. It is a privilege to be allowed the opportunity to participate in? your urological care.? Again, if you have any questions or concerns If you have any questions or concerns please do not hesitate to contact me. The office is [phone]. This note is constructed using voice recognition software. While every effort has been made to ensure accuracy grab jack worker errors may have been included. Yours sincerely, CHRISSIE Agee Coding Level of Care Code Est Pt Level 3 (28103) Complex EM visit Add On G2211 Diagnoses Enlarged prostate N40.0 Lower urinary tract symptoms R39.9 CPT Codes Post Residual Void - PVR CPT Code: 81652-Ibpa Void Residual by ultrasound ([id number])
--- OUTSIDE RECORDS SUMMARY | 2024-12-16 10:52 | XMS_ITS | Patient Health Record ---
Author Organization [facility] Address [address] [place] [id number] Care Team Providers Care Catalyst Concentration Operator Name Role Phone Herman LLAMAS, [facility] [place] Primary Care Provider UnavailTawanda Castellon Unavailable [phone] Allergies Allergen (clinical drug ingredient) Drug/Non Drug Allergy documented on EMR Reaction Allergy Type Onset Date Status Penicillin Unknown Drug Allergy Active Reason For Referral No Information Medications Medication SIG (Take, Route, Frequency, Duration) Notes Start Date End Date Status Tamsulosin HCl 0.4 MG 1 capsule Orally [...] 1 MG Oral for 90 Ac tive Social History Tobacco Use: Social History Observation [...] Notes: Quit smoking 2003, no significant alcohol [place] [employer] fan Quit smoking 2003, no significant alcohol [employer] [employer] fan Problems Problem Type SNOMED Code ICD Code Onset Dates Problem Status W/U Status Risk Notes Problem Colon cancer screening (Z12.11) Active confirmed Problem 339425233 Anemia, unspecif ied type (D64.9) Active confirmed Problem 961030313 Gastroesophageal reflux disease, unspecified whether esophagitis present (K21.9) Active confirmed Vital Signs Blood pressure diastolic 77 mm Hg 10/16/2024 Height 72 in 10/16/2024 Blood pressure systolic 111 mm Hg 10/16/2024 Weight 160 lbs 10/16/2024 BMI 21.7 kg/m2 10/16/2024 Encounters Encounter Location Date Provider Diagnosis [facility] [address] [place] [address] 10/16/2024 Tawanda Starr Gastroesophageal ref lux disease, unspecified whether esophagitis present K21.9 ; Anemia, unspecified type D64.9 and Colon cancer screening Z12.11 [facility] [address] [place] [phone] 10/16/2024 Tawanda Starr Assessments Encounter Date Diagnosis (ICD Code) Assessment Notes Treatment Notes Treatment Clinical Notes Section Notes 10/16/2024 Anemia, unspecified type (ICD-10 - D64.9) [...] any further assistance in the interim. 10/16/2024 Gastroesophageal reflux disease, unspecified whether esophagitis [...] assistance in the interim. Plan Of Treatment Pending Test Test Name Order Date Hemoccult Cards (Non-Screening) 04/10/20 23 IRON + IBC (FE) 04/10/2023 CBC w DIFF 04/10/2023 Ferritin 04/10/2023 Future Test Test Name Order Date UPPER GI ENDOSCOPY 04/10/2023 Insurance Providers Payer Name Payer Address Payer Phone Subscriber Number Group Number Insured Name Patient Relationship to Insured Coverage Start Date Coverage End Date [facility] Medicare Advantage Plan [address] [address] [place] [address] [id number] ARMINDA VARGAS Self - patient is the insured Medical (General) History Medical History History ICD Code Hypertension Fotlcx-fcdounk-safd Dr. Mu tate. He has had normal iron studies in the past. He had a borderline low B12 level once but with negative intrinsic factor antibodies. His hemoglobin has been stable in the range of 12-12.6 since 2020. Emphysema- mild History of kidney stones He had a negative colonoscop y in April of [address] Gibson in [place] and he reports negative colonoscopy about 10 years prior to that as well Negative cardiac cath in 2020-sees Dr. Faustino diaz GERD Denies [place],DM,CVA,renal disease Surgical History Surgery Date(Month/Year) Right inguinal hernia 2023 Dr. 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
--- OUTSIDE RECORDS SUMMARY | 2024-12-16 10:52 | XMS_ITS | Patient Health Record ---
Author Organization [facility] Address [address] [place] [address] Care Team Providers Care Caddy Master Name Role Phone Mian Ramirez MD Primary Care Provider Anant Ramirez Unavailable [phone] Allergies Allergen (clinical drug ingredient) Drug/Non Drug [...] Status W/U Status Risk Notes Problem Bursitis (19624961) Bursitis (727.3) Active confirmed Problem Calcaneal spur (51416873) Calcaneal spur (726.73) Active confirmed Problem Myositis (43287456) Myositis (729.1) Active confirmed Problem Pain in limb (86224227) Pain in Limb (729.5) Active confirmed Problem Plantar fasciitis (242488541) Plantar Fasciitis (728.71) Active confirmed Plan Of Treatment Pending Test Test Name Order Date X ray : Foot, right 3V 07/19/2012 Insurance Providers Payer Name Payer Address Payer Phone Subscriber Number Group Number Insured Name Patient Relationship to Insured Coverage Start Date Coverage End Date [facility] [employer] [address] [place] [phone] [phone] [id number] David Henley Self - patient is the insured Medical (General) History Medical History History ICD Code cholesterol high blood pressure mumps reflux Surgical History Surgery Date(Month/Year) cleft palate
== END 2024-12-16 10:58 | disposition home or self-care (01) ==
LOC: HO.HUSH 10:10
PROVIDERS: PCP Internal Medicine; Visit Provider Nurse Practitioner Family
DX: N40.0 Benign prostatic hyperplasia without lower urinary tract symptoms (principal); R39.9 Unspecified symptoms and signs involving the genitourinary system; Z13.9 Encounter for screening, unspecified
CPT/HCPCS: 99213; G2211

== ENCOUNTER → 2024-12-16 10:09 | Outpatient (BNVA) | payer MEDICARE, SELFPAY | PROVIDERS: PCP Internal Medicine; Visit Provider Nurse Practitioner Family | DX: N40.0 Benign prostatic hyperplasia without lower urinary tract symptoms (principal); R39.9 Unspecified symptoms and signs involving the genitourinary system | CPT/HCPCS: 51798; 81003; 99212 ==